=== PATIENT | female | born 1940 | race Hispanic/Latino ===

== ENCOUNTER 2017-02-17 10:24 | Emergency (ER) | payer MEDICARE, OTHER ==
[2017-02-17 10:24] VITALS: BMI 23.0
[2017-02-17 10:30] VITALS: RESP 20; O2SAT 100
--- NOTE | 2017-02-17 10:47 | C.PDOC ---
History Of Present Illness 77-year-old female, PMHx includes Anxiety, CAD, COPD, Depression, Diverticulitis , Emphysema, Hypertension, Hypercholesterolemia, and Hypothyroidism, presents to the emergency department with complaints of multiple episodes of hematuria that started two days ago. Patient denies nausea/vomiting, abdominal pain, dysuria/frequency/urgency, or any other associated symptoms. No other complaints at this time. Time Seen by Provider: 02/17/17 10:38 Chief Complaint (Nursing): Female Genitourinary History Per: Patient History/Exam Limitations: no limitations Onset/Duration Of Symptoms: Days Current Symptoms Are (Timing): Still Present Past Medical History Reviewed: Historical Data, Nursing Documentation, Vital Signs Vital Signs: Last Vital Signs Temp 98.3 F 02/17/17 14:18 Pulse 75 02/17/17 14:18 Resp 20 02/17/17 14:18 BP 114/71 02/17/17 14:18 Pulse Ox 100 02/17/17 14:18 - Medical History PMH: Anxiety, CAD, COPD, Depression, Diverticulitis, Emphysema, HTN, Hypercholesterolemia, Hypothyroidism Denies: Chronic Kidney Disease Surgical History: Appendectomy, Cholecystectomy, Coronary Stent (X4 7 YEARS AGO) - [facility] Procedures RESECTION OF BILATERAL FALLOPIAN TUBES, OPEN APPROACH (01/09/17) RESECTION OF BILATERAL OVARIES, OPEN APPROACH (01/09/17) RESECTION OF CERVIX, OPEN APPROACH (01/09/17) RESECTION OF UTERUS, OPEN APPROACH (01/09/17) Family History: States: Unknown Family Hx - Social History Hx Tobacco Use: No Hx Alcohol Use: Yes (former) Hx Substance Use: No - Immunization History Hx Tetanus Toxoid Vaccination: No Hx Influenza Vaccination: No Hx Pneumococcal Vaccination: No Review Of Systems Except As Marked, All Systems Reviewed And Found Negative. Constitutional: Negative for: Fever, Chills Respiratory: Negative for: Shortness of Breath Gastrointestinal: Negative for: Nausea, Vomiting Genitourinary: Positive for: Hematuria. Negative for: Dysuria, Frequency, Vaginal Discharge, Vaginal Bleeding, Pelvic Pain Musculoskeletal: Negative for: Back Pain Skin: Negative for: Rash Neurological: Negative for: Weakness, Numbness Physical Exam - Physical Exam Appears: Non-toxic, No Acute Distress Skin: Warm, Dry, No Rash, Other (healing incision scar to lower abdomen. No erythema. No discharge. ) Head: Atraumatic, Normacephalic Eye(s): bilateral: Normal Inspection, PERRL Nose: Normal Oral Mucosa: Moist Lips: Normal Appearing Neck: Normal ROM Cardiovascular: Rhythm Regular Respiratory: Normal Breath Sounds, No Accessory Muscle Use Gastrointestinal/Abdominal: Soft, No Tenderness Extremity: Normal ROM Neurological/Psych: Oriented x3, Normal Speech ED Course And Treatment - Laboratory Results Result Diagrams: 02/17/17 11:10 02/17/17 11:10 O2 Sat by Pulse Oximetry: 100 Disposition Counseled Patient/Family Regarding: Studies Performed, Diagnosis, Need For Followup, Rx Given - Disposition Disposition: HOME/ ROUTINE Disposition Time: 15:19 Condition: GUARDED Additional Instructions: Follow up with your doctor and with Urology. Take antibiotics as indicated. Return to the Emergency Department with any further concerns. Prescriptions: Nitrofurantoin Macrocrystals [Macrobid] 1 cap PO BID #14 cap Instructions: Acute Hematuria (ED), Urinary Tract Infection in Women (ED) Forms: General Discharge Instructions - POA Present On Arrival: None - Clinical Impression Clinical Impression: Hematuria, UTI (urinary tract infection) - Scribe Statement The provider has reviewed the documentation as recorded by the Scribe Ros Tapia All medical record entries made by the Scribe were at my direction and personally dictated by me. I have reviewed the chart and agree that the record accurately reflects my personal performance of the history, physical exam, medical decision making, and the department course for this patient. I have also personally directed, reviewed, and agree with the discharge instructions and disposition.
[2017-02-17 11:16] LABS: BASO % 0.5 % (0.0-2.0); EOS % 0.3 % (0.0-4.0); HEMATOCRIT 34.2 % (34.0-47.0); LYMPH # 0.7 K/uL (1.0-4.3); MEAN CELL VOLUME 93.6 fL (81.0-99.0); MEAN CORPUSCULAR HEMOGLOBIN 30.9 pg (27.0-31.0); MEAN PLATELET VOLUME 7.9 fL (7.2-11.7); MONO # 0.3 K/uL (0.0-0.8); MONO % 4.3 % (0.0-10.0); RED CELL DISTRIBUTION WIDTH 13.4 % (11.5-14.5); WHITE BLOOD COUNT 6.7 K/uL (4.8-10.8)
[2017-02-17 11:23] LABS: CHLORIDE 98 mmol/L (98-107); SODIUM 138 mmol/L (132-148)
[2017-02-17 11:24] LABS: POTASSIUM 4.1 mmol/L (3.6-5.2)
[2017-02-17 11:26] LABS: ALB/GLOB RATIO 1.1 (1.0-2.1); ALKALINE PHOSPHATASE 159 U/L (38-126); ALT/SGPT 33 U/L (9-52); AST/SGOT 30 U/L (14-36); BILIRUBIN,TOTAL 0.6 mg/dL (0.2-1.3); BLOOD UREA NITROGEN 15 mg/dL (7-17); CARBON DIOXIDE 26 mmol/L (22-30); GFR AFRICAN-AMERICAN > 60; GLUCOSE,RANDOM 123 mg/dL (65-105); TOTAL PROTEIN 7.1 g/dL (6.3-8.3)
[2017-02-17 11:27] LABS: CALCIUM 8.9 mg/dl (8.6-10.4)
[2017-02-17 12:24] LABS: RBC URINE 41 /hpf (0-3); URINE BACTERIA OCC (<OCC); URINE BILIRUBIN NEGATIVE (NEGATIVE); URINE BLOOD 3+ (NEGATIVE); URINE GLUCOSE (UA) NORMAL (Normal); URINE KETONE NEGATIVE (NEGATIVE); URINE LEUKOCYTE ESTERASE 2+ Leu/uL (Negative); URINE PROTEIN 2+ mg/dL (NEGATIVE); URINE UROBILINOGEN NORMAL mg/dL (0.2-1.0); WBC URINE 10 /hpf (0-5)
[2017-02-17 12:25] LABS: URINE COLOR LIGHT RED (YELLOW)
[2017-02-17] MEDS ORDERED: cefTRIAXone IV 1 gm in Dextros 50 ML IVPB ONE ×2 (13:13→14:51)
[2017-02-17 14:19] VITALS: BP 114/71; PULSE 75; TEMP 98.3
== END 2017-02-17 15:44 | disposition home or self-care (01) ==
LOC: C.ER 10:24
DX: N39.0 Urinary tract infection, site not specified (principal); B95.1 Streptococcus, group B, as the cause of diseases classified elsewhere; R31.9 Hematuria, unspecified
CPT/HCPCS: 80053; 81001; 85025; 87086; 87181; 96365; 99285; J0696

== ENCOUNTER 2017-07-26 10:23 | Inpatient (IN) | payer MEDICARE, OTHER ==
[2017-07-26 10:23] VITALS: BMI 23.0
--- NOTE | 2017-07-26 11:25 | C.PDOC ---
Time Seen by Provider: 07/26/17 10:54 Chief Complaint (Nursing): GI Problem Past Medical History Vital Signs: Last Vital Signs Temp 98.1 F 07/26/17 10:43 Pulse 108 H 07/26/17 10:43 Resp 18 07/26/17 10:43 BP 154/90 H 07/26/17 10:43 Pulse Ox 99 07/26/17 10:43 - Medical History PMH: Anxiety, CAD, COPD, Depression, Diverticulitis, Emphysema, HTN, Hypercholesterolemia, Hypothyroidism Denies: Chronic Kidney Disease Surgical History: Appendectomy, Cholecystectomy, Coronary Stent (X4 7 YEARS AGO) - [facility] Procedures RESECTION OF BILATERAL FALLOPIAN TUBES, OPEN APPROACH (01/09/17) RESECTION OF BILATERAL OVARIES, OPEN APPROACH (01/09/17) RESECTION OF CERVIX, OPEN APPROACH (01/09/17) RESECTION OF UTERUS, OPEN APPROACH (01/09/17) Family History: States: Unknown Family Hx - Social History Hx Tobacco Use: No Hx Alcohol Use: No (former) Hx Substance Use: No - Immunization History Hx Tetanus Toxoid Vaccination: No Hx Influenza Vaccination: No Hx Pneumococcal Vaccination: No ED Course And Treatment O2 Sat by Pulse Oximetry: 99 Disposition - Disposition Forms: [employer] (Cypriot)
[2017-07-26 11:28] LABS: BASO % 0.3 % (0.0-2.0); EOS # 0.1 K/uL (0.0-0.7); EOS % 0.7 % (0.0-4.0); HEMATOCRIT 35.9 % (34.0-47.0); LYMPH # 0.8 K/uL (1.0-4.3); LYMPH % 9.1 % (20.0-40.0); MEAN CORPUSCULAR HEMOGLOBIN 30.9 pg (27.0-31.0); MEAN CORPUSCULAR HGB CONC 33.6 g/dL (33.0-37.0); MEAN PLATELET VOLUME 8.7 fL (7.2-11.7); MONO # 0.5 K/uL (0.0-0.8); PLATELET COUNT 243 K/uL (130-400); RED CELL DISTRIBUTION WIDTH 15.2 % (11.5-14.5)
--- NOTE | 2017-07-26 11:33 | C.PDOC ---
History Of Present Illness 77-YEAR-OLD FEMALE, REFERRED BY PMD FOR ADMISSION. +WT LOSS X 1 MONTH APPROX 20 LBS. +NEW ONSET INTERMIT BRBPR X 2 WEEKS. LAST EPISODE SEV DAYS AGO. NO ASSOC ABD PAIN, RECTAL PAIN. INTERMIT NAUSEA. CURRENTLY CO GEN WEAKNESS, MALAISE. EXAM MILD DIST NONTOXIC HEENT NO PALLOR ABD NEG REMAINDER NEG Time Seen by Provider: 07/26/17 10:54 Chief Complaint (Nursing): GI Problem History Per: Patient History/Exam Limitations: no limitations Onset/Duration Of Symptoms: Days Severity: Moderate Past Medical History Reviewed: Historical Data, Nursing Documentation, Vital Signs Vital Signs: Last Vital Signs Temp 98.1 F 07/26/17 10:43 Pulse 108 H 07/26/17 10:43 Resp 18 07/26/17 10:43 BP 154/90 H 07/26/17 10:43 Pulse Ox 99 07/26/17 12:26 - Medical History PMH: Anxiety, CAD, COPD, Depression, Diverticulitis, Emphysema, HTN, Hypercholesterolemia, Hypothyroidism Denies: Chronic Kidney Disease Surgical History: Appendectomy, Cholecystectomy, Coronary Stent (X4 7 YEARS AGO) - [facility] Procedures RESECTION OF BILATERAL FALLOPIAN TUBES, OPEN APPROACH (01/09/17) RESECTION OF BILATERAL OVARIES, OPEN APPROACH (01/09/17) RESECTION OF CERVIX, OPEN APPROACH (01/09/17) RESECTION OF UTERUS, OPEN APPROACH (01/09/17) Family History: States: No Known Family Hx - Social History Hx Tobacco Use: No Hx Alcohol Use: No (former) Hx Substance Use: No - Immunization History Hx Tetanus Toxoid Vaccination: No Hx Influenza Vaccination: No Hx Pneumococcal Vaccination: No Review Of Systems Except As Marked, All Systems Reviewed And Found Negative. Constitutional: Negative for: Fever Cardiovascular: Negative for: Chest Pain Gastrointestinal: Positive for: Nausea, Hematochezia Musculoskeletal: Negative for: Back Pain Neurological: Positive for: Weakness Physical Exam - Physical Exam Appears: Non-toxic, No Acute Distress Skin: Warm, Dry, No Rash Head: Atraumatic, Normacephalic Eye(s): bilateral: Normal Inspection Nose: Normal Oral Mucosa: Moist Lips: Normal Appearing Neck: Normal ROM Cardiovascular: Rhythm Regular, No Murmur Respiratory: Normal Breath Sounds, No Accessory Muscle Use Gastrointestinal/Abdominal: Soft, No Tenderness Extremity: Normal ROM ED Course And Treatment - Laboratory Results Result Diagrams: 07/26/17 11:20 07/26/17 11:20 O2 Sat by Pulse Oximetry: 99 Pulse Ox Interpretation: Normal - Radiology CXR: Interpreted by Me CXR Interpretation: Yes: No Acute Disease Progress - Re-Evaluation Re-evaluation Note: 07/26/17 12:26 EXAM [facility] PER REFERRAL RX, PT TO BE ADMITTED TO DR MORALES - Data Reviewed Data Reviewed: Lab, Diagnostic imaging, EKG, Old records Disposition Counseled Patient/Family Regarding: Studies Performed, Diagnosis - Disposition Disposition: HOSPITALIZED Disposition Time: 12:20 Condition: STABLE Forms: [employer] (Andorran) - POA Present On Arrival: None - Clinical Impression Clinical Impression: GI bleed, Malaise, Weight loss - Scribe Statement The provider has reviewed the documentation as recorded by the Scribe (Ros Tapia) All medical record entries made by the Scribe were at my direction and personally dictated by me. I have reviewed the chart and agree that the record accurately reflects my personal performance of the history, physical exam, medical decision making, and the department course for this patient. I have also personally directed, reviewed, and agree with the discharge instructions and disposition. Decision To Admit - Pt Status Changed To: Hospital Disposition Of: Inpatient - Admit Certification Admit to Inpatient:: After my assessment, the patient will require hospitalization for at least two midnights. This is because of the severity of symptoms shown, intensity of services needed, and/or the medical risk in this patient being treated as an outpatient. - InPatient: Physician Admission Certification: I certify that this patient requires 2 or more midnights of care for the following reason:: SEE NOTE - . Bed Request Type: Telemetry Admitting Physician: Donell Morales Patient Diagnosis: GI bleed, Malaise, Weight loss
[2017-07-26 11:42] LABS: ALKALINE PHOSPHATASE 203 U/L (38-126); ALT/SGPT 67 U/L (9-52); AST/SGOT 71 U/L (14-36); BILIRUBIN,TOTAL 0.7 mg/dL (0.2-1.3); BLOOD UREA NITROGEN 15 mg/dL (7-17); CALCIUM 9.3 mg/dl (8.6-10.4); CARBON DIOXIDE 26 mmol/L (22-30); CHLORIDE 102 mmol/L (98-107); GFR AFRICAN-AMERICAN > 60; GLUCOSE,RANDOM 104 mg/dL (65-105); POTASSIUM 4.5 mmol/L (3.6-5.2); SODIUM 141 mmol/L (132-148); TOTAL PROTEIN 7.4 g/dL (6.3-8.3)
[2017-07-26 11:45] LABS: EOSINOPHIL 1 % (0-4); NEUTROPHIL 88 % (50-75); TOTAL CELLS COUNTED 100
[2017-07-26 11:47] LABS: LARGE PLATELETS PRESENT
--- NOTE | 2017-07-26 15:18 | RAD ---
PROCEDURE: CHEST RADIOGRAPH, 1 VIEW HISTORY: FAILURE TO THRIVE COMPARISON: 12/06/2016 FINDINGS: LUNGS: Clear. PLEURA: No pneumothorax or pleural fluid seen. CARDIOVASCULAR: No radiographic findings to suggest acute or significant cardiovascular disease. OSSEOUS STRUCTURES: No significant abnormalities. VISUALIZED UPPER ABDOMEN: Normal. OTHER FINDINGS: None. IMPRESSION: No active disease. No acute/significant interval changes. Concordant results with the preliminary interpretation rendered by the emergency department physician procedure.
--- NOTE | 2017-07-26 23:23 | CP.PCM.HP ---
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 also feels anxious about whole process, she is independent of ADL\IDL and active otherwise. Present on Admission - Present on Admission Any Indicators Present on Admission: No Review of Systems - Constitutional Constitutional: Fatigue, Lethargy, Weight Loss. absent: Chills, Fever, Headache , Night Sweats - EENT Nose/Mouth/Throat: absent: Sore Throat, Facial Pain - Cardiovascular Cardiovascular: absent: Chest Pain, Dyspnea, Edema, Orthopnea, Rapid Heart Rate - Respiratory Respiratory: absent: Wheezing, Chest Congestion, Excessive Mucous Production - Gastrointestinal Gastrointestinal: Nausea. absent: Belching, Bloating, Constipation, Diarrhea, Dyspepsia - Genitourinary Genitourinary: Hematuria. absent: Flank Pain, Urinary Frequency - Reproductive: Female Reproductive:Female: S/P Hysterectomy - Menstruation Menstruation: Post Menopausal - Musculoskeletal Musculoskeletal: Arthralgias, Limited Range of Motion. absent: Back Pain - Hematologic/Lymphatic Hematologic: absent: Easy Bleeding, Lymphadenopathy Past Patient History - Past Medical History & Family History Past Medical History?: Yes - Past Social History Smoking Status: Former Smoker - CARDIAC Hx Hypercholesterolemia: Yes Hx Hypertension: Yes - PULMONARY Hx Chronic Obstructive Pulmonary Disease (COPD): Yes Hx Emphysema: Yes - NEUROLOGICAL Hx Neurological Disorder: No - HEENT Hx HEENT Problems: Yes Hx Cataracts: Yes (BILAT IOL) - RENAL Hx Chronic Kidney Disease: No - ENDOCRINE/METABOLIC Hx Hypothyroidism: Yes - HEMATOLOGICAL/ONCOLOGICAL Hx Blood Disorders: No - INTEGUMENTARY Hx Dermatological Problems: No - MUSCULOSKELETAL/RHEUMATOLOGICAL Hx Musculoskeletal Disorders: Yes Hx Back Pain: Yes Hx Falls: No Hx Herniated Disk: Yes (LUMBAR) - GASTROINTESTINAL Hx Diverticulitis: Yes - GENITOURINARY/GYNECOLOGICAL Hx Genitourinary Disorders: Yes (FIBROID UTERUS) - PSYCHIATRIC Hx Anxiety: Yes Hx Depression: Yes Hx Substance Use: No - SURGICAL HISTORY Hx Appendectomy: Yes Hx Cholecystectomy: Yes Hx Coronary Stent: Yes (X4 7 YEARS AGO) - ANESTHESIA Hx Anesthesia: Yes Hx Anesthesia Reactions: No Hx Malignant Hyperthermia: No Meds Allergies/Adverse Reactions: Allergies Allergy/AdvReac Type Severity Reaction Status Date / Time influenza virus vaccine, Allergy Intermediate RASH Verified 01/07/17 11:07 specific cortisone Allergy RASH Verified 01/09/17 08:24 Iodinated Contrast- Oral and Allergy RASH Verified 07/26/17 22:42 IV Dye Physical Exam - Constitutional Appears: No Acute Distress - Head Exam Head Exam: ATRAUMATIC, NORMAL INSPECTION - Eye Exam Eye Exam: EOMI, Normal appearance, PERRL - ENT Exam ENT Exam: Normal Exam - Neck Exam Neck exam: Positive for: Normal Inspection. Negative for: Thyromegaly - Respiratory Exam Respiratory Exam: Clear to Auscultation Bilateral, NORMAL BREATHING PATTERN - Cardiovascular Exam Cardiovascular Exam: REGULAR RHYTHM, +S1, +S2, Systolic Murmur - GI/Abdominal Exam GI & Abdominal Exam: Normal Bowel Sounds, Soft. absent: Distended, Organomegaly , Tenderness - Rectal Exam Rectal Exam: NORMAL INSPECTION Additional comments: guiac negative - Extremities Exam Extremities exam: Positive for: full ROM, pedal pulses present - Back Exam Back exam: NORMAL INSPECTION. absent: paraspinal tenderness - Neurological Exam Neurological exam: Alert, CN II-XII Intact, Normal Gait, Oriented x3 - Psychiatric Exam Psychiatric exam: Anxious - Skin Skin Exam: Intact, Normal Color Results - Vital Signs Recent Vital Signs: Last Vital Signs Temp 97.4 F L 07/26/17 17:26 Pulse 78 07/26/17 17:26 Resp 20 07/26/17 17:26 BP 130/75 07/26/17 17:26 Pulse Ox 100 07/26/17 17:26 - Labs Result Diagrams: 07/27/17 07:07 07/27/17 07:07 Labs: Laboratory Results - last 24 hr 07/26/17 07/26/17 12:31 16:43 CA 19-9 Antigen 2.5 Stool Occult Blood Negative - Imaging and Cardiology Chest x-ray Status: Report reviewed by me Assessment & Plan (1) Weight loss Status: Acute Comment: considerable weight this yr. cause unclear. peristent elevation CA125 , s\p pathology is benign. for colonoscopy as she can not get it OP. CT abdomen\chest\pelvis. also allergies to contast ,premedicate (2) Malaise Assessment and Plan: nutrition evalv ensure Status: Chronic (3) Essential (primary) hypertension Status: Chronic Priority: Medium (4) Mixed hyperlipidemia Status: Chronic Priority: Medium Comment: resume meds (5) Hypothyroid Status: Chronic Priority: Medium Comment: resume meds (6) GI bleed Assessment and Plan: GI consult stool FOB-3 guaic negative Status: Chronic (7) CAD (coronary artery disease) Status: Acute Comment: STABLE Decision To Admit - Pt Status Changed To: Hospital Disposition Of: Inpatient - Admit Certification Admit to Inpatient:: After my assessment, the patient will require hospitalization for at least two midnights. This is because of the severity of symptoms shown, intensity of services needed, and/or the medical risk in this patient being treated as an outpatient. - InPatient: Physician Admission Certification:: ABOVE - . Bed Request Type: Regular Admitting Physician: Donell Morales
[2017-07-27] MEDS: Levothyroxine 25 MCG TAB PO SCH (06:13)
[2017-07-27 07:28] LABS: HEMATOCRIT 35.1 % (34.0-47.0); MEAN CELL VOLUME 92.2 fL (81.0-99.0); MEAN CORPUSCULAR HEMOGLOBIN 30.9 pg (27.0-31.0); MEAN CORPUSCULAR HGB CONC 33.5 g/dL (33.0-37.0); MEAN PLATELET VOLUME 8.7 fL (7.2-11.7); RED CELL DISTRIBUTION WIDTH 14.9 % (11.5-14.5); WHITE BLOOD COUNT 6.7 K/uL (4.8-10.8)
[2017-07-27 07:44] LABS: CHLORIDE 105 mmol/L (98-107); SODIUM 141 mmol/L (132-148)
[2017-07-27 07:45] LABS: POTASSIUM 4.8 mmol/L (3.6-5.2)
[2017-07-27 07:47] LABS: ALKALINE PHOSPHATASE 189 U/L (38-126); ALT/SGPT 62 U/L (9-52); AST/SGOT 53 U/L (14-36); BILIRUBIN,TOTAL 0.8 mg/dL (0.2-1.3); BLOOD UREA NITROGEN 14 mg/dL (7-17); CARBON DIOXIDE 29 mmol/L (22-30); GFR AFRICAN-AMERICAN > 60; GLUCOSE,RANDOM 92 mg/dL (65-105); TOTAL PROTEIN 7.3 g/dL (6.3-8.3)
[2017-07-27 07:48] LABS: CALCIUM 9.2 mg/dl (8.6-10.4)
[2017-07-27 07:56] LABS: CARCINOEMBRYONIC ANTIGEN 1.2 ng/mL (0-3.0)
--- NOTE | 2017-07-27 09:12 | CP.PCM.CON ---
<Cecilia Mueller - Last Filed: 07/27/17 11:40> History of Present Illness - History of Present Illness History of Present Illness: GI Consult PGY4 Consult Note This is a 77yF with a pmhx of HLD, Hypothyroidism, Emphysema, CAD s/p 4 stents 7yrs ago, Ovarian serous cystadenoma s/p total abdominal hysterectomy 12/2016, Diverticulosis pw co generalized weakness, weight loss and rectal bleeding. Pt reports she has been feeling weak for the past one year and has had unintentional weightloss of 23pounds over the course of one year. Pt reports decreased appetite and intermittent nausea but denies vomiting, abdominal pain. Pt reports her symptoms have progressively worsened after her hysterectomy in December. Pt reports small amounts of red blood on toilet paper with BM but denies melena, hematochezia, hemetemesis. Pt reports regular soft BM every other day, no history of NSAID use like Aleve, Advil, pt does take baby aspirin daily. No prior hx of GI bleed. Pt reports having a colonoscopy many years ago but less than 10yrs ago that was negative for polyps, did have diverticulosis. EGD at that time was negative for PUD,gastritis, or GERD. ROS: A 12pt ROS was obtained and was negative except as above PmHx: As stated in HPI PsHx: As stated in HPI SHx: Prior history of alcohol use but denies current ETOH or tobacco FHx: No hx of colon cancer Past Patient History - Past Medical History & Family History Past Medical History?: Yes - Past Social History Smoking Status: Former Smoker - CARDIAC Hx Hypercholesterolemia: Yes Hx Hypertension: Yes - PULMONARY Hx Chronic Obstructive Pulmonary Disease (COPD): Yes Hx Emphysema: Yes - NEUROLOGICAL Hx Neurological Disorder: No - HEENT Hx HEENT Problems: Yes Hx Cataracts: Yes (BILAT IOL) - RENAL Hx Chronic Kidney Disease: No - ENDOCRINE/METABOLIC Hx Hypothyroidism: Yes - HEMATOLOGICAL/ONCOLOGICAL Hx Blood Disorders: No - INTEGUMENTARY Hx Dermatological Problems: No - MUSCULOSKELETAL/RHEUMATOLOGICAL Hx Musculoskeletal Disorders: Yes Hx Back Pain: Yes Hx Falls: No Hx Herniated Disk: Yes (LUMBAR) - GASTROINTESTINAL Hx Diverticulitis: Yes - GENITOURINARY/GYNECOLOGICAL Hx Genitourinary Disorders: Yes (FIBROID UTERUS) - PSYCHIATRIC Hx Anxiety: Yes Hx Depression: Yes Hx Substance Use: No - SURGICAL HISTORY Hx Appendectomy: Yes Hx Cholecystectomy: Yes Hx Coronary Stent: Yes (X4 7 YEARS AGO) - ANESTHESIA Hx Anesthesia: Yes Hx Anesthesia Reactions: No Hx Malignant Hyperthermia: No Meds Allergies/Adverse Reactions: Allergies Allergy/AdvReac Type Severity Reaction Status Date / Time influenza virus vaccine, Allergy Intermediate RASH Verified 01/07/17 11:07 specific cortisone Allergy RASH Verified 01/09/17 08:24 Iodinated Contrast- Oral and Allergy RASH Verified 07/26/17 22:42 IV Dye - Medications Medications: Current Medications Aspirin (Ecotrin) 81 mg PO DAILY [facility] Enoxaparin Sodium (Lovenox) 40 mg SC DAILY [facility] Ergocalciferol (Drisdol 50,000 Intl Units Cap) 1 cap PO QWK [facility] Levothyroxine Sodium (Synthroid) 25 mcg PO DAILY@0630 [facility] Last Admin: 07/27/17 06:13 Dose: 25 mcg Losartan Potassium (Cozaar) 12.5 mg PO DAILY [facility] Rosuvastatin Calcium (Crestor) 5 mg PO HS [facility] Last Admin: 07/26/17 21:21 Dose: 5 mg Physical Exam - Constitutional Appears: Non-toxic, No Acute Distress - Head Exam Head Exam: ATRAUMATIC, NORMAL INSPECTION, NORMOCEPHALIC - Eye Exam Eye Exam: EOMI, Normal appearance, PERRL Pupil Exam: PERRL - ENT Exam ENT Exam: Mucous Membranes Moist - Neck Exam Neck exam: Positive for: Normal Inspection - Respiratory Exam Respiratory Exam: Clear to Auscultation Bilateral, NORMAL BREATHING PATTERN - Cardiovascular Exam Cardiovascular Exam: RRR, +S1, +S2 - GI/Abdominal Exam GI & Abdominal Exam: Normal Bowel Sounds, Soft. absent: Distended, Firm, Guarding, Organomegaly, Tenderness - Rectal Exam Rectal Exam: Hemorrhoids Additional comments: Brown stool, no melena or hematochezia - Extremities Exam Extremities exam: Positive for: normal inspection. Negative for: pedal edema - Back Exam Back exam: NORMAL INSPECTION - Neurological Exam Neurological exam: Alert, Oriented x3 - Psychiatric Exam Psychiatric exam: Normal Affect, Normal Mood - Skin Skin Exam: Dry, Intact, Normal Color, Warm Results - Vital Signs Recent Vital Signs: Last Vital Signs Temp 97.6 F 07/27/17 07:15 Pulse 64 07/27/17 07:15 Resp 18 07/27/17 07:15 BP 125/66 07/27/17 07:15 Pulse Ox 99 07/27/17 07:15 - Labs Result Diagrams: 07/27/17 07:07 07/27/17 07:07 Labs: Laboratory Results - last 24 hr 07/26/17 07/26/17 07/27/17 12:31 16:43 07:07 WBC RBC Hgb Hct MCV MCH MCHC RDW Plt Count MPV Sodium 141 Potassium 4.8 Chloride 105 Carbon Dioxide 29 Anion Gap 12 BUN 14 Creatinine 0.8 Est GFR ( Amer) > 60 Est GFR (Non-Af Amer) > 60 Random Glucose 92 Calcium 9.2 Total Bilirubin 0.8 AST 53 H D ALT 62 H Alkaline Phosphatase 189 H Total Protein 7.3 Albumin 3.7 Globulin 3.7 Albumin/Globulin Ratio 1.0 Carcinoembryonic Ag 1.2 CA 19-9 Antigen 2.5 CA 125 Antigen 39.1 H TSH 3rd Generation 3.40 Stool Occult Blood Negative 07/27/17 07:07 WBC 6.7 RBC 3.80 Hgb 11.7 Hct 35.1 MCV 92.2 MCH 30.9 MCHC 33.5 RDW 14.9 H Plt Count 260 MPV 8.7 Sodium Potassium Chloride Carbon Dioxide Anion Gap BUN Creatinine Est GFR ( Amer) Est GFR (Non-Af Amer) Random Glucose Calcium Total Bilirubin AST ALT Alkaline Phosphatase Total Protein Albumin Globulin Albumin/Globulin Ratio Carcinoembryonic Ag CA 19-9 Antigen CA 125 Antigen TSH 3rd Generation Stool Occult Blood Assessment & Plan - Assessment and Plan (Free Text) Assessment: This is a 77yf pw co weakness, weight loss and rectal bleeding. 1. Anemia 2. Unintentional weight loss, nausea 3. Lower GI Bleed 4. Hypothyroidism 5. Serous Cystadenoma s/p hysterectomy Plan: -Continue supportive care, no active GI bleeding at this time, Hgb stable -Continue to monitor Hgb, order iron profile, Hgb seems to be at pt's baseline, possible hemorrhoidal bleed -No plan for emergent endoscopic evaluation a this time -Pt will benefit from EGD/Colonoscopy if pt remains in the hospital but will need cardiac/pulmonary clearance prior to procedure including 2decho -Recommend CT Chest in addition to CTA/P with IV/po contrast to r/o malignancy with recent hysterectomy -Check TSH level -Will continue to follow pt closely <Barron Serra MD - Last Filed: 07/27/17 13:04> Meds - Medications Medications: Current Medications Aspirin (Ecotrin) 81 mg PO DAILY [facility] Last Admin: 07/27/17 09:59 Dose: 81 mg Diphenhydramine HCl (Benadryl) 50 mg IVP ONCE ONE Stop: 07/28/17 08:01 Enoxaparin Sodium (Lovenox) 40 mg SC DAILY [facility] Last Admin: 07/27/17 10:00 Dose: 40 mg Ergocalciferol (Drisdol 50,000 Intl Units Cap) 1 cap PO QWK [facility] Last Admin: 07/27/17 09:59 Dose: 1 cap Levothyroxine Sodium (Synthroid) 25 mcg PO DAILY@0630 [facility] Last Admin: 07/27/17 06:13 Dose: 25 mcg Losartan Potassium (Cozaar) 12.5 mg PO DAILY [facility] Last Admin: 07/27/17 10:04 Dose: 12.5 mg Pneumococcal Polyvalent Vaccine (Pneumovax 23 Vaccine) 0.5 ml IM .ONCE ONE Stop: 07/28/17 10:01 Prednisone (Prednisone Tab) 50 mg PO ONCE ONE Stop: 07/28/17 08:01 Rosuvastatin Calcium (Crestor) 5 mg PO HS [facility] Last Admin: 07/26/17 21:21 Dose: 5 mg Results - Vital Signs Recent Vital Signs: Last Vital Signs Temp 97.6 F 07/27/17 07:15 Pulse 64 07/27/17 07:15 Resp 18 07/27/17 07:15 BP 125/66 07/27/17 07:15 Pulse Ox 99 07/27/17 07:15 - Labs Result Diagrams: 07/27/17 07:07 07/27/17 07:07 Labs: Laboratory Results - last 24 hr 07/26/17 07/27/17 07/27/17 16:43 07:07 07:07 WBC 6.7 RBC 3.80 Hgb 11.7 Hct 35.1 MCV 92.2 MCH 30.9 MCHC 33.5 RDW 14.9 H Plt Count 260 MPV 8.7 Sodium 141 Potassium 4.8 Chloride 105 Carbon Dioxide 29 Anion Gap 12 BUN 14 Creatinine 0.8 Est GFR ( Amer) > 60 Est GFR (Non-Af Amer) > 60 Random Glucose 92 Calcium 9.2 Iron TIBC % Saturation Total Bilirubin 0.8 AST 53 H D ALT 62 H Alkaline Phosphatase 189 H Total Protein 7.3 Albumin 3.7 Globulin 3.7 Albumin/Globulin Ratio 1.0 Carcinoembryonic Ag 1.2 CA 19-9 Antigen 2.5 CA 125 Antigen 39.1 H TSH 3rd Generation 3.40 07/27/17 11:41 WBC RBC Hgb Hct MCV MCH MCHC RDW Plt Count MPV Sodium Potassium Chloride Carbon Dioxide Anion Gap BUN Creatinine Est GFR ( Amer) Est GFR (Non-Af Amer) Random Glucose Calcium Iron 55 TIBC 291 % Saturation 19 L Total Bilirubin AST ALT Alkaline Phosphatase Total Protein Albumin Globulin Albumin/Globulin Ratio Carcinoembryonic Ag CA 19-9 Antigen CA 125 Antigen TSH 3rd Generation Attending/Attestation - Attestation I have personally seen and examined this patient.: Yes I have fully participated in the care of the patient.: Yes I have reviewed all pertinent clinical information: Yes Notes (Text): 07/27/17 13:01 This is a 77 year old F presented with weakness, weight loss and rectal bleeding. Recent history of adnexal mass s/p ROMAN and salpingoophorectomy with serous cystadenoma on pathology. No history of recent EGD/ colonoscopy. last colonoscopy about 8 years ago which was normal as per patient. Denies erctal bleeding. Rectal brwon stool. Has new onset fatigue- needs cardiology work up with ECHO and TSH levels. Recommens CT chest, abdomen and pelvis with Iv contrast. Will benefit from EGD/ colonoscopy which can be done as outpatient once has finished cardiology work up
[2017-07-27] MEDS: Enoxaparin 40 mg Syringe SC SCH (10:00)
[2017-07-27] MEDS ORDERED: Ergocalciferol 50,000 Intl Units Cap PO SCH (10:00)
[2017-07-27 12:02] LABS: IRON 55 ug/dL (37-170)
--- NOTE | 2017-07-27 21:09 | CP.PCM.PN ---
Subjective - Date & Time of Evaluation Date of Evaluation: 07/27/17 Time of Evaluation: 15:00 - Subjective Subjective: notes she is allergic to cortisone,does not know what happens. labs noted. no more episodes of bleeding anxious about colonoscopy and CT scan. TSH-normal, elevated LFTS-mild with alk ca 125-39. Objective - Vital Signs/Intake and Output Vital Signs (last 24 hours): Temp Pulse Resp BP Pulse Ox 97.7 F 75 20 121/67 98 07/27/17 15:50 07/27/17 16:00 07/27/17 15:50 07/27/17 15:50 07/27/17 15:50 - Medications Medications: Current Medications Aspirin (Ecotrin) 81 mg PO DAILY [facility] Last Admin: 07/27/17 09:59 Dose: 81 mg Diphenhydramine HCl (Benadryl) 50 mg IVP ONCE ONE Stop: 07/28/17 08:01 Enoxaparin Sodium (Lovenox) 40 mg SC DAILY [facility] Last Admin: 07/27/17 10:00 Dose: 40 mg Ergocalciferol (Drisdol 50,000 Intl Units Cap) 1 cap PO QWK [facility] Last Admin: 07/27/17 09:59 Dose: 1 cap Levothyroxine Sodium (Synthroid) 25 mcg PO DAILY@0630 [facility] Last Admin: 07/27/17 06:13 Dose: 25 mcg Losartan Potassium (Cozaar) 12.5 mg PO DAILY [facility] Pneumococcal Polyvalent Vaccine (Pneumovax 23 Vaccine) 0.5 ml IM .ONCE ONE Stop: 07/28/17 10:01 Prednisone (Prednisone Tab) 50 mg PO Q6H [facility] Stop: 07/28/17 08:01 Last Admin: 07/27/17 20:57 Dose: 50 mg Rosuvastatin Calcium (Crestor) 5 mg PO HS [facility] Last Admin: 07/27/17 21:02 Dose: 5 mg - Labs Labs: 07/27/17 07:07 07/27/17 07:07 PT 11.0 SECONDS (9.7-12.2) 07/26/17 11:20 INR 1.0 07/26/17 11:20 APTT 30 SECONDS (21-34) 07/26/17 11:20 - Additional Findings Additional findings: - Constitutional Appears: No Acute Distress - Head Exam Head Exam: ATRAUMATIC, NORMAL INSPECTION - Eye Exam Eye Exam: EOMI, Normal appearance, PERRL - ENT Exam ENT Exam: Normal Exam - Neck Exam Neck exam: Positive for: Normal Inspection. Negative for: Thyromegaly - Respiratory Exam Respiratory Exam: Clear to Auscultation Bilateral, NORMAL BREATHING PATTERN - Cardiovascular Exam Cardiovascular Exam: REGULAR RHYTHM, +S1, +S2, Systolic Murmur - GI/Abdominal Exam GI & Abdominal Exam: Normal Bowel Sounds, Soft. absent: Distended, Organomegaly , Tenderness - Extremities Exam Extremities exam: Positive for: full ROM, pedal pulses present - Back Exam Back exam: NORMAL INSPECTION. absent: paraspinal tenderness - Neurological Exam Neurological exam: Alert, CN II-XII Intact, Normal Gait, Oriented x3 - Psychiatric Exam Psychiatric exam: Anxious - Skin Skin Exam: Intact, Normal Color Assessment and Plan (1) GI bleed Status: Chronic (2) Weight loss Status: Acute (3) CAD (coronary artery disease) Status: Chronic (4) Hypothyroid Status: Chronic - Assessment and Plan (Free Text) Plan: plan to get EGD\Colonoscopy due to weight loss, hx of rectal bleed ,not able to do as out patient mild hepatitis- likley drug induced ALK-Phosphatase levles get GGT,Phosphrous levels
[2017-07-28] MEDS: Levothyroxine 25 MCG TAB PO SCH (05:59)
[2017-07-28] MEDS ORDERED: DiphenhydrAMINE 50 mg/ml Inj IVP ONE (08:00)
[2017-07-28] MEDS ORDERED: Iodixanol 320 MG/ML 100 ML BOTTLE IV ONE (09:23)
[2017-07-28] MEDS ORDERED: Iohexol 240 (50 ml) PO ONE (09:30)
[2017-07-28] MEDS ORDERED: Pneumococcal 23-Valent Vaccine IM ONE (10:00)
[2017-07-28] MEDS: Enoxaparin 40 mg Syringe SC SCH (10:04)
[2017-07-28] MEDS: Losartan 12.5 MG TAB PO SCH (10:08)
[2017-07-28 10:19] LABS: BASO % 0.1 % (0.0-2.0); HEMATOCRIT 38.8 % (34.0-47.0); LYMPH # 0.6 K/uL (1.0-4.3); LYMPH % 6.4 % (20.0-40.0); MEAN CELL VOLUME 92.9 fL (81.0-99.0); MEAN CORPUSCULAR HGB CONC 33.4 g/dL (33.0-37.0); MEAN PLATELET VOLUME 8.5 fL (7.2-11.7); MONO # 0.1 K/uL (0.0-0.8); MONO % 0.7 % (0.0-10.0); PLATELET COUNT 285 K/uL (130-400); RED CELL DISTRIBUTION WIDTH 14.8 % (11.5-14.5); WHITE BLOOD COUNT 9.2 K/uL (4.8-10.8)
--- NOTE | 2017-07-28 10:36 | CP.PCM.PN ---
<Stanton Robles - Last Filed: 07/28/17 10:32> Subjective - Date & Time of Evaluation Date of Evaluation: 07/28/17 Time of Evaluation: 07:35 - Subjective Subjective: PGY5 GI Fellow Progress Note Patient seen and examined bedside this morning. The patient states she has had no issues overnight. She continues to have poor appetite. Denies any joleen abdominal pain, nausea, vomiting or change in bowel habits currently. 12 system ROS performed and negative except where stated. Objective - Vital Signs/Intake and Output Vital Signs (last 24 hours): Temp Pulse Resp BP Pulse Ox 97.7 F 82 20 112/67 95 07/28/17 07:00 07/28/17 08:05 07/28/17 07:00 07/28/17 07:00 07/28/17 07:00 Intake and Output: 07/28/17 07/28/17 06:59 18:59 Intake Total 480 Balance 480 - Medications Medications: Current Medications Aspirin (Ecotrin) 81 mg PO DAILY [facility] Last Admin: 07/28/17 10:04 Dose: 81 mg Bisacodyl (Dulcolax) 10 mg PO ONCE ONE Stop: 07/28/17 12:01 Enoxaparin Sodium (Lovenox) 40 mg SC DAILY [facility] Last Admin: 07/28/17 10:04 Dose: 40 mg Ergocalciferol (Drisdol 50,000 Intl Units Cap) 1 cap PO QWK [facility] Last Admin: 07/27/17 09:59 Dose: 1 cap Levothyroxine Sodium (Synthroid) 25 mcg PO DAILY@0630 [facility] Last Admin: 07/28/17 05:59 Dose: 25 mcg Losartan Potassium (Cozaar) 12.5 mg PO DAILY [facility] Last Admin: 07/28/17 10:08 Dose: 12.5 mg Polyethylene Glycol/Electrolytes (Golytely) 4,000 ml PO ONCE ONE Stop: 07/28/17 14:01 Rosuvastatin Calcium (Crestor) 5 mg PO HS [facility] Last Admin: 07/27/17 21:02 Dose: 5 mg - Labs Labs: 07/28/17 10:16 07/27/17 07:07 PT 11.0 SECONDS (9.7-12.2) 07/26/17 11:20 INR 1.0 07/26/17 11:20 APTT 30 SECONDS (21-34) 07/26/17 11:20 - Constitutional Appears: Non-toxic, No Acute Distress - Eye Exam Eye Exam: EOMI, PERRL - ENT Exam ENT Exam: Mucous Membranes Moist - Respiratory Exam Respiratory Exam: Clear to Ausculation Bilateral. absent: Rales, Rhonchi, Wheezes - Cardiovascular Exam Cardiovascular Exam: RRR, +S1, +S2 - GI/Abdominal Exam GI & Abdominal Exam: Soft, Normal Bowel Sounds. absent: Distended, Firm, Guarding, Rigid, Tenderness, Organomegaly - Extremities Exam Extremities Exam: Normal Inspection. absent: Pedal Edema - Neurological Exam Neurological Exam: Alert, Awake, Oriented x3 - Psychiatric Exam Psychiatric exam: Normal Affect, Normal Mood - Skin Skin Exam: Dry, Warm Assessment and Plan - Assessment and Plan (Free Text) Assessment: Patient is a 77yo female with PMHx significant for CAD s/p PCI with 4 coronary artery stents, COPD, ovarian serous cystadenoma s/p ROMAN with BSO, hypothyroidism and hyperlipidemia who presented to the ED with generalized malaise, weight loss and intermittent rectal bleeding. -Unintentional weight loss -Generalized malaise, poor appetite -Anemia -Hypothyroidism Plan: -Plan for EGD/colonoscopy tomorrow -Dulcolax at 12pm -Golytely to begin at 2pm -liquid diet today, npo past mn -Cleared for procedure from primary care physician, Dr Morales -Awaiting CT C/A/P to R/O any underlying malignancy -CA 125 elevation noted <Francisco Rogers Y - Last Filed: 07/28/17 14:41> Objective - Vital Signs/Intake and Output Vital Signs (last 24 hours): Temp Pulse Resp BP Pulse Ox 97.7 F 82 20 112/67 95 07/28/17 07:00 07/28/17 08:05 07/28/17 07:00 07/28/17 07:00 07/28/17 07:00 Intake and Output: 07/28/17 07/28/17 06:59 18:59 Intake Total 480 Balance 480 - Medications Medications: Current Medications Aspirin (Ecotrin) 81 mg PO DAILY [facility] Last Admin: 07/28/17 10:04 Dose: 81 mg Enoxaparin Sodium (Lovenox) 40 mg SC DAILY [facility] Last Admin: 09/12/17 10:04 Dose: 40 mg Ergocalciferol (Drisdol 50,000 Intl Units Cap) 1 cap PO QWK [facility] Last Admin: 07/27/17 09:59 Dose: 1 cap Levothyroxine Sodium (Synthroid) 25 mcg PO DAILY@0630 [facility] Last Admin: 07/28/17 05:59 Dose: 25 mcg Losartan Potassium (Cozaar) 12.5 mg PO DAILY [facility] Last Admin: 07/28/17 10:08 Dose: 12.5 mg Rosuvastatin Calcium (Crestor) 5 mg PO HS [facility] Last Admin: 07/27/17 21:02 Dose: 5 mg - Labs Labs: 07/28/17 10:16 07/28/17 10:16 PT 11.0 SECONDS (9.7-12.2) 07/26/17 11:20 INR 1.0 07/26/17 11:20 APTT 30 SECONDS (21-34) 07/26/17 11:20 Attending/Attestation - Attestation I have personally seen and examined this patient.: Yes I have fully participated in the care of the patient.: Yes I have reviewed all pertinent clinical information, including history, physical exam and plan: Yes Notes (Text): 07/28/17 14:39 I have seen and examined patient with GI fellow. No acute events overnight, she is seen resting in bed comfortably. She denies abdominal pain, nausea, vomiting, diarrhea, fever/chills. Tolerating PO diet without difficulty. Review of vitals from today are normal. CAD s/p PCI COPD Ovarian cystadenoma s/p ROMAN Unintentional weight loss - Liquid diet as tolerated - H/H stable, continue to monitor - Patient scheduled for CT imaging of chest/abdomen/pelvis today for malignancy workup, follow up results - Plan for EGD/colonoscopy tomorrow for further evaluation given unexplained weight loss, elevated tumor marker. NPO after midnight.
[2017-07-28 10:46] LABS: ALB/GLOB RATIO 1.1 (1.0-2.1); ALKALINE PHOSPHATASE 194 U/L (38-126); ALT/SGPT 68 U/L (9-52); AST/SGOT 48 U/L (14-36); BILIRUBIN,TOTAL 0.4 mg/dL (0.2-1.3); BLOOD UREA NITROGEN 15 mg/dL (7-17); CALCIUM 9.9 mg/dl (8.6-10.4); CARBON DIOXIDE 25 mmol/L (22-30); CHLORIDE 101 mmol/L (98-107); GFR AFRICAN-AMERICAN > 60; GLUCOSE,RANDOM 178 mg/dL (65-105); POTASSIUM 4.1 mmol/L (3.6-5.2); SODIUM 142 mmol/L (132-148); TOTAL PROTEIN 7.7 g/dL (6.3-8.3)
[2017-07-28] MEDS ORDERED: Bisacodyl 5mg EC Tab PO ONE (12:00)
[2017-07-28 12:31] LABS: NEUTROPHIL 94 % (50-75); TOTAL CELLS COUNTED 100
--- NOTE | 2017-07-28 13:17 | CT ---
PROCEDURE: CT Chest, Abdomen and Pelvis with intravenous contrast HISTORY: weight loss COMPARISON: 09/26/2016 TECHNIQUE: IV dose administered: 100 cc of Visipaque Radiation dose: Total exam DLP = 356 mGy-cm. This CT exam was performed using one or more of the following dose reduction techniques: Automated exposure control, adjustment of the mA and/or kV according to patient size, and/or use of iterative reconstruction technique. FINDINGS: CT CHEST WITH CONTRAST: LUNGS: Clear. No nodule, mass or consolidation. MEDIASTINUM: Unremarkable. Normal caliber aorta and pulmonary arterial trunk. No aortic dissection. Normal size heart. Heavily calcified coronary arteries LYMPH NODES: Unremarkable. PLEURA: Pleural-based nodular scar and granulomas are seen right greater than left. BONES: Unremarkable. OTHER FINDINGS: None. CT ABDOMEN AND PELVIS: LIVER: Unremarkable. No gross lesion or ductal dilatation. GALLBLADDER AND BILE DUCTS: Not visualize. There are no clips in the gallbladder fossa. PANCREAS: Unremarkable. No gross lesion or ductal dilatation. SPLEEN: Unremarkable. ADRENALS: Unremarkable. No mass. KIDNEYS AND URETERS: Unremarkable. No hydronephrosis. No solid mass. VASCULATURE: Unremarkable. No aortic aneurysm. BOWEL: Unremarkable. No obstruction. No gross mural thickening. APPENDIX: Not visualize. There are no secondary signs of appendicitis. PERITONEUM: Unremarkable. No free fluid. No free air. LYMPH NODES: Unremarkable. No enlarged lymph nodes. BLADDER: Unremarkable. REPRODUCTIVE: The previous study showed a left adnexal cyst which is no longer seen. Previous hysterectomy BONES: No acute fracture. OTHER FINDINGS: None. IMPRESSION: No evidence of malignancy. No acute findings
[2017-07-28] MEDS ORDERED: Peg-Electrolyte Oral Soln 4L (Golytely) PO ONE (14:00)
--- NOTE | 2017-07-28 21:14 | CP.PCM.PN ---
Subjective - Date & Time of Evaluation Date of Evaluation: 07/28/17 Time of Evaluation: 13:00 - Subjective Subjective: ct abdomen\chest-WNL. going for EGD\colonoscopy in am very anxious about procedures ,asking repititvely about her tolerability at her age . labs-WNL. Objective - Vital Signs/Intake and Output Vital Signs (last 24 hours): Temp Pulse Resp BP Pulse Ox 98 F 89 20 122/77 97 07/28/17 15:15 07/28/17 16:00 07/28/17 15:15 07/28/17 15:15 07/28/17 15:52 - Medications Medications: Current Medications Aspirin (Ecotrin) 81 mg PO DAILY [facility] Last Admin: 07/28/17 10:04 Dose: 81 mg Enoxaparin Sodium (Lovenox) 40 mg SC DAILY [facility] Last Admin: 07/28/17 10:04 Dose: 40 mg Ergocalciferol (Drisdol 50,000 Intl Units Cap) 1 cap PO QWK [facility] Last Admin: 07/27/17 09:59 Dose: 1 cap Levothyroxine Sodium (Synthroid) 25 mcg PO DAILY@0630 [facility] Last Admin: 07/28/17 05:59 Dose: 25 mcg Losartan Potassium (Cozaar) 12.5 mg PO DAILY [facility] Last Admin: 07/28/17 10:08 Dose: 12.5 mg Rosuvastatin Calcium (Crestor) 5 mg PO HS [facility] Last Admin: 07/27/17 21:02 Dose: 5 mg - Labs Labs: 07/28/17 10:16 07/28/17 10:16 PT 11.0 SECONDS (9.7-12.2) 07/26/17 11:20 INR 1.0 07/26/17 11:20 APTT 30 SECONDS (21-34) 07/26/17 11:20 - Additional Findings Additional findings: - Constitutional Appears: No Acute Distress - Head Exam Head Exam: ATRAUMATIC, NORMAL INSPECTION - Eye Exam Eye Exam: EOMI, Normal appearance, PERRL - ENT Exam ENT Exam: Normal Exam - Neck Exam Neck exam: Positive for: Normal Inspection. Negative for: Thyromegaly - Respiratory Exam Respiratory Exam: Clear to Auscultation Bilateral, NORMAL BREATHING PATTERN - Cardiovascular Exam Cardiovascular Exam: REGULAR RHYTHM, +S1, +S2, Systolic Murmur - GI/Abdominal Exam GI & Abdominal Exam: Normal Bowel Sounds, Soft. absent: Distended, Organomegaly , Tenderness - Extremities Exam Extremities exam: Positive for: full ROM, pedal pulses present - Back Exam Back exam: NORMAL INSPECTION. absent: paraspinal tenderness - Neurological Exam Neurological exam: Alert, CN II-XII Intact, Normal Gait, Oriented x3 - Psychiatric Exam Psychiatric exam: Anxious - Skin Skin Exam: Intact, Normal Color Assessment and Plan (1) GI bleed Status: Chronic (2) Weight loss Status: Acute (3) CAD (coronary artery disease) Status: Chronic (4) Hypothyroid Status: Chronic (5) Hepatitis Assessment & Plan: with elevated alk used be on urocholic acd in pas as per patient Status: Chronic - Assessment and Plan (Free Text) Plan: undergoing for pre-prep for v=colonoscopy reassurance provided at length she is stable for procedure d\w GI awaiting for labs for hepatitis work up.
[2017-07-29] MEDS: Levothyroxine 25 MCG TAB PO SCH (05:52)
[2017-07-29 08:33] LABS: HEMATOCRIT 36.5 % (34.0-47.0); MEAN CELL VOLUME 91.9 fL (81.0-99.0); MEAN CORPUSCULAR HEMOGLOBIN 30.9 pg (27.0-31.0); MEAN CORPUSCULAR HGB CONC 33.6 g/dL (33.0-37.0); MEAN PLATELET VOLUME 8.7 fL (7.2-11.7); RED CELL DISTRIBUTION WIDTH 14.9 % (11.5-14.5); WHITE BLOOD COUNT 12.3 K/uL (4.8-10.8)
[2017-07-29] MEDS: Losartan 12.5 MG TAB PO SCH (09:41)
[2017-07-29] MEDS: Enoxaparin 40 mg Syringe SC SCH (09:47)
[2017-07-29] MEDS ORDERED: MethylPREDNISolone 40 mg Vial IVP ONE (13:15)
[2017-07-29] MEDS ORDERED: Lidocaine Hydrochloride 5 ML INJ ONE (13:43)
[2017-07-29] MEDS ORDERED: Propofol 10 mg/ml Inj (20 ML) ONE (13:43)
[2017-07-29] MEDS ORDERED: Lactated Ringer's 1,000 ML IV ONE (13:45)
--- NOTE | 2017-07-29 14:38 | CP.PCM.PN ---
Subjective - Date & Time of Evaluation Date of Evaluation: 07/29/17 Time of Evaluation: 14:34 - Subjective Subjective: Patient seen and examined, no acute events overnight. She denies abdominal pain , nausea, vomiting. s/p EGD and colonoscopy today showing mild gastritis, multiple colon polyps, small hemorrhoids. Objective - Vital Signs/Intake and Output Vital Signs (last 24 hours): Temp Pulse Resp BP Pulse Ox 98.1 F 68 20 136/78 98 07/29/17 12:26 07/29/17 12:26 07/29/17 12:26 07/29/17 12:07/29/17 12:26 - Medications Medications: Current Medications Aspirin (Ecotrin) 81 mg PO DAILY [facility] Last Admin: 07/29/17 09:41 Dose: 81 mg Enoxaparin Sodium (Lovenox) 40 mg SC DAILY [facility] Last Admin: 07/29/17 09:47 Dose: Not Given Ergocalciferol (Drisdol 50,000 Intl Units Cap) 1 cap PO QWK [facility] Last Admin: 07/27/17 09:59 Dose: 1 cap Levothyroxine Sodium (Synthroid) 25 mcg PO DAILY@0630 [facility] Last Admin: 07/29/17 05:52 Dose: Not Given Losartan Potassium (Cozaar) 12.5 mg PO DAILY [facility] Last Admin: 07/29/17 09:41 Dose: 12.5 mg Rosuvastatin Calcium (Crestor) 5 mg PO HS [facility] Last Admin: 07/28/17 21:35 Dose: 5 mg - Labs Labs: 07/29/17 08:19 PT 11.0 SECONDS (9.7-12.2) 07/29/17 08:19 INR 1.0 07/29/17 08:19 APTT 30 SECONDS (21-34) 07/26/17 11:20 Assessment and Plan - Assessment and Plan (Free Text) Assessment: CAD s/p PCI COPD Ovarian cystadenoma s/p ROMAN Hypothyroidism Unexplained weight loss - s/p EGD and colonoscopy today showing gastritis, multiple colon polyps, internal hemorrhoids CT imaging reviewed by me showing no gross pathology Plan: - Advance diet as tolerated - Follow up biopsy results from EGD/colonsocopy - Begin once daily PPI therapy for treatment duration of 1 month - Monitor LFTs, awaiting results of autoimmune panel - Would pursue alternate reasons for unexplained weight loss, no clear GI source present. Will sign off case, please reconsult as necessary, thank you. Case discussed with Dr. Morales.
[2017-07-29 17:35] VITALS: RESP 20
--- NOTE | 2017-07-29 18:06 | CP.PCM.PN ---
Subjective - Date & Time of Evaluation Date of Evaluation: 07/29/17 Time of Evaluation: 13:16 - Subjective Subjective: PT SEEN REQUESTED BY RN YURI Pacheco FOR RASH TO FACE. PT ADMITS TO HAVING CT W IV CONTRAST YESRTERDAY. SHE HAS A PRIOR H/O CT IV DYE ALLERGY AND REC'D THE PRE -MEDICATION YESTERDAY. PT NOTED REDNESS TO NOSE AND CHEEKS THIS AFTERNOON. LIKELY DELAYED ALLERGIC RESPONSE TO CT CONTRAST. ON EXAM PT HAS MILD ERYTHEMA TO B/L CHEEKS AND BRIDGE OF NOSE; NO HIVES OR SKIN OPENINGS NOTED, NO OOZING. PT IS SCHEDULED FOR ENDOSCOPY WITHIN 45-60 MINUTES PER RN YURI Pacheco. CANNOT GIVE BENADRYL 2/2 RISK OF HYPOTENSION WITH THE ANESTHESIA. SOLUMEDROL 60 MG IV X1 DOSE ORDERED. WILL RE-EVAL AFTER PROCEDURE. Objective - Vital Signs/Intake and Output Vital Signs (last 24 hours): Temp Pulse Resp BP Pulse Ox 98.1 F 64 20 134/76 97 07/29/17 15:32 07/29/17 16:00 07/29/17 15:32 07/29/17 15:32 07/29/17 15:32 - Medications Medications: Current Medications Aspirin (Ecotrin) 81 mg PO DAILY [facility] Last Admin: 07/29/17 09:41 Dose: 81 mg Enoxaparin Sodium (Lovenox) 40 mg SC DAILY [facility] Last Admin: 07/29/17 09:47 Dose: Not Given Ergocalciferol (Drisdol 50,000 Intl Units Cap) 1 cap PO QWK [facility] Last Admin: 07/27/17 09:59 Dose: 1 cap Levothyroxine Sodium (Synthroid) 25 mcg PO DAILY@0630 [facility] Last Admin: 07/29/17 05:52 Dose: Not Given Losartan Potassium (Cozaar) 12.5 mg PO DAILY [facility] Last Admin: 07/29/17 09:41 Dose: 12.5 mg Rosuvastatin Calcium (Crestor) 5 mg PO HS [facility] Last Admin: 07/28/17 21:35 Dose: 5 mg - Labs Labs: 07/29/17 08:19 PT 11.0 SECONDS (9.7-12.2) 07/29/17 08:19 INR 1.0 07/29/17 08:19 APTT 30 SECONDS (21-34) 07/26/17 11:20
--- NOTE | 2017-07-29 22:51 | CP.PCM.PN ---
Subjective - Date & Time of Evaluation Date of Evaluation: 07/29/17 Time of Evaluation: 15:00 - Subjective Subjective: fees tired and week .s\p colonoscopy and GED- no significant findings.d\w GI. other test results pending mild elevation LFTS c\o abdominal pain- left side ,dull feels ,bloated, 2-3 , episodic.denies N\ vomiting\fever etc Objective - Vital Signs/Intake and Output Vital Signs (last 24 hours): Temp Pulse Resp BP Pulse Ox 98.1 F 64 20 134/76 97 07/29/17 15:32 07/29/17 16:00 07/29/17 15:32 07/29/17 15:32 07/29/17 15:32 - Medications Medications: Current Medications Aspirin (Ecotrin) 81 mg PO DAILY [facility] Last Admin: 07/29/17 09:41 Dose: 81 mg Enoxaparin Sodium (Lovenox) 40 mg SC DAILY [facility] Last Admin: 07/29/17 09:47 Dose: Not Given Ergocalciferol (Drisdol 50,000 Intl Units Cap) 1 cap PO QWK [facility] Last Admin: 07/27/17 09:59 Dose: 1 cap Levothyroxine Sodium (Synthroid) 25 mcg PO DAILY@0630 [facility] Last Admin: 07/29/17 05:52 Dose: Not Given Losartan Potassium (Cozaar) 12.5 mg PO DAILY [facility] Last Admin: 07/29/17 09:41 Dose: 12.5 mg Rosuvastatin Calcium (Crestor) 5 mg PO HS [facility] Last Admin: 07/29/17 21:46 Dose: 5 mg - Labs Labs: 07/29/17 08:19 PT 11.0 SECONDS (9.7-12.2) 07/29/17 08:19 INR 1.0 07/29/17 08:19 APTT 30 SECONDS (21-34) 07/26/17 11:20 - Additional Findings Additional findings: - Constitutional Appears: No Acute Distress - Head Exam Head Exam: ATRAUMATIC, NORMAL INSPECTION - Eye Exam Eye Exam: EOMI, Normal appearance, PERRL - ENT Exam ENT Exam: Normal Exam - Neck Exam Neck exam: Positive for: Normal Inspection. Negative for: Thyromegaly - Respiratory Exam Respiratory Exam: Clear to Auscultation Bilateral, NORMAL BREATHING PATTERN - Cardiovascular Exam Cardiovascular Exam: REGULAR RHYTHM, +S1, +S2, Systolic Murmur - GI/Abdominal Exam GI & Abdominal Exam: Normal Bowel Sounds, Soft. absent: Distended, Organomegaly , mild tenderness on LUQ Tenderness - Extremities Exam Extremities exam: Positive for: full ROM, pedal pulses present - Back Exam Back exam: NORMAL INSPECTION. absent: paraspinal tenderness - Neurological Exam Neurological exam: Alert, CN II-XII Intact, Normal Gait, Oriented x3 - Psychiatric Exam Psychiatric exam: Anxious - Skin Skin Exam: Intact, Normal Color Assessment and Plan (1) Abdominal pain Assessment & Plan: AXR Possible gasy pain r\o perforation.tolerating diet Status: Acute (2) Hepatitis Status: Chronic (3) Weight loss Status: Acute (4) CAD (coronary artery disease) Status: Chronic (5) Hypothyroid Status: Chronic (6) Essential (primary) hypertension Status: Chronic - Assessment and Plan (Free Text) Plan: continue all meds
[2017-07-30] MEDS: Levothyroxine 25 MCG TAB PO SCH (06:10)
[2017-07-30] MEDS: Losartan 12.5 MG TAB PO SCH (10:04)
[2017-07-30] MEDS: Enoxaparin 40 mg Syringe SC SCH (10:04)
[2017-07-30 12:05] LABS: BASO % 0.1 % (0.0-2.0); LYMPH # 1.5 K/uL (1.0-4.3); LYMPH % 12.9 % (20.0-40.0); MEAN CELL VOLUME 92.4 fL (81.0-99.0); MEAN CORPUSCULAR HEMOGLOBIN 30.7 pg (27.0-31.0); MEAN CORPUSCULAR HGB CONC 33.2 g/dL (33.0-37.0); MEAN PLATELET VOLUME 8.9 fL (7.2-11.7); MONO # 0.8 K/uL (0.0-0.8); MONO % 7.3 % (0.0-10.0); RED CELL DISTRIBUTION WIDTH 15.4 % (11.5-14.5); WHITE BLOOD COUNT 11.4 K/uL (4.8-10.8)
[2017-07-30 12:38] LABS: CHLORIDE 104 mmol/L (98-107); POTASSIUM 3.8 mmol/L (3.6-5.2); SODIUM 141 mmol/L (132-148)
[2017-07-30 12:40] LABS: AST/SGOT 30 U/L (14-36); BILIRUBIN,TOTAL 0.5 mg/dL (0.2-1.3); CARBON DIOXIDE 26 mmol/L (22-30); GFR AFRICAN-AMERICAN > 60
[2017-07-30 12:41] LABS: ALKALINE PHOSPHATASE 132 U/L (38-126); ALT/SGPT 56 U/L (9-52); BLOOD UREA NITROGEN 21 mg/dL (7-17); CALCIUM 9.3 mg/dl (8.6-10.4); GLUCOSE,RANDOM 83 mg/dL (65-105); TOTAL PROTEIN 6.6 g/dL (6.3-8.3)
--- NOTE | 2017-07-30 16:41 | RAD ---
HISTORY: abdominal pain COMPARISON: Comparison made with CT scan chest abdomen pelvis 07/28/2017 FINDINGS: BOWEL: Moderately large amount of stool is again seen in the cecum and ascending colon consistent with fecal retention/constipation. No evidence of acute mechanical bowel obstruction. No gross free air seen under the diaphragmatic surfaces. BONES: Mild degenerative spondylosis of the lower thoracic and lumbar spine again noted. OTHER FINDINGS: None. IMPRESSION: Findings consistent with mild constipation as above. No evidence of acute mechanical bowel obstruction
--- NOTE | 2017-07-30 23:47 | CP.PCM.PN ---
Subjective - Subjective Subjective: c\o pain on ledt side abdomen radiating to left shoulder. s\p colonoscopy. Objective - Vital Signs/Intake and Output Vital Signs (last 24 hours): Temp Pulse Resp BP Pulse Ox 97.9 F 97 H 20 125/71 98 07/30/17 15:12 07/30/17 16:00 07/30/17 15:12 07/30/17 15:12 07/30/17 15:12 Intake and Output: 07/30/17 07/31/17 18:59 06:59 Intake Total 320 Balance 320 - Medications Medications: Current Medications Aspirin (Ecotrin) 81 mg PO DAILY [facility] Last Admin: 07/30/17 10:04 Dose: 81 mg Enoxaparin Sodium (Lovenox) 40 mg SC DAILY [facility] Last Admin: 07/30/17 10:04 Dose: 40 mg Ergocalciferol (Drisdol 50,000 Intl Units Cap) 1 cap PO QWK [facility] Last Admin: 07/27/17 09:59 Dose: 1 cap Levothyroxine Sodium (Synthroid) 25 mcg PO DAILY@0630 [facility] Last Admin: 07/30/17 06:10 Dose: 25 mcg Losartan Potassium (Cozaar) 12.5 mg PO DAILY [facility] Last Admin: 07/30/17 10:04 Dose: 12.5 mg Rosuvastatin Calcium (Crestor) 5 mg PO HS [facility] Last Admin: 07/30/17 21:45 Dose: 5 mg - Labs Labs: 07/30/17 11:51 07/30/17 11:51 PT 11.0 SECONDS (9.7-12.2) 07/29/17 08:19 INR 1.0 07/29/17 08:19 APTT 30 SECONDS (21-34) 07/26/17 11:20 Assessment and Plan (1) GI bleed Status: Chronic (2) Weight loss Status: Acute (3) CAD (coronary artery disease) Status: Chronic (4) Hypothyroid Status: Chronic
[2017-07-31] MEDS: Levothyroxine 25 MCG TAB PO SCH (06:10)
[2017-07-31 08:27] VITALS: BP 146/77; TEMP 97.5; O2SAT 96
[2017-07-31] MEDS: Enoxaparin 40 mg Syringe SC SCH (09:14)
[2017-07-31] MEDS: Losartan 12.5 MG TAB PO SCH (09:15)
[2017-07-31 11:24] VITALS: PULSE 80
[2017-07-31 12:42] LABS: LKM-1 Ab (IgG) <=20.0 U (<=20.0)
[2017-07-31] MEDS ORDERED: Saccharomyces Boulardi 250 mg Cap PO ONE (13:00)
[2017-07-31] MEDS ORDERED: Pantoprazole 40 mg EC Tab PO ONE (13:00)
--- NOTE | 2017-07-31 13:03 | CP.PCM.PN ---
Subjective - Date & Time of Evaluation Date of Evaluation: 07/31/17 Time of Evaluation: 13:03 - Subjective Subjective: PT CLEARED FOR D/C PER Adia DEVINE. [employer] TECHNICIAN DISCUSSED + H-PYLORI RESULTS W GI FELLOW DR. THIERNO ESTES. PER GI PT CAN BE D/.C WITH PO AMOX AND CLARITHROMYCIN AND PPI X14 DAYS; FOLLOWED BY GI F/U IN OFFICE AND REPEAT H-PYLORI BREATH TEST. PT TO ALSO F/U WITH DR. DEVINE IN HER OFFICE NEXT WEEK AT 11:00 AM. PT VERBALIZES UNDERSTANDING OF ALL F/U AND D/C INSTRUCTIONS. Objective - Vital Signs/Intake and Output Vital Signs (last 24 hours): Temp Pulse Resp BP Pulse Ox 97.5 F L 80 20 146/77 96 07/31/17 07:00 07/31/17 10:00 07/31/17 07:00 07/31/17 07:00 07/31/17 07:00 Intake and Output: 07/31/17 07/31/17 06:59 18:59 Intake Total 440 Balance 440 - Medications Medications: Current Medications Aspirin (Ecotrin) 81 mg PO DAILY [facility] Last Admin: 07/31/17 09:15 Dose: 81 mg Enoxaparin Sodium (Lovenox) 40 mg SC DAILY [facility] Last Admin: 07/31/17 09:14 Dose: 40 mg Ergocalciferol (Drisdol 50,000 Intl Units Cap) 1 cap PO QWK [facility] Last Admin: 07/27/17 09:59 Dose: 1 cap Levothyroxine Sodium (Synthroid) 25 mcg PO DAILY@0630 [facility] Last Admin: 07/31/17 06:10 Dose: 25 mcg Losartan Potassium (Cozaar) 12.5 mg PO DAILY [facility] Last Admin: 07/31/17 09:15 Dose: 12.5 mg Rosuvastatin Calcium (Crestor) 5 mg PO HS [facility] Last Admin: 07/30/17 21:45 Dose: 5 mg - Labs Labs: 07/30/17 11:51 07/30/17 11:51 PT 11.0 SECONDS (9.7-12.2) 07/29/17 08:19 INR 1.0 07/29/17 08:19 APTT 30 SECONDS (21-34) 07/26/17 11:20
--- NOTE | 2017-08-04 00:05 | CP.PCM.DIS ---
Provider - Provider Date of Admission: 07/28/17 23:04 Attending physician: Donell Morales MD Time Spent in preparation of Discharge (in minutes): 30 Diagnosis - Discharge Diagnosis (1) Abdominal pain Status: Acute (2) Hepatitis Status: Chronic (3) Weight loss Status: Acute (4) CAD (coronary artery disease) Status: Chronic (5) Hypothyroid Status: Chronic Priority: Medium (6) Essential (primary) hypertension Status: Chronic Priority: Medium Hospital Course - Lab Results Lab Results: Most Recent Lab Values WBC 11.4 K/uL (4.8-10.8) H 07/30/17 11:51 RBC 3.57 Mil/uL (3.80-5.20) L 07/30/17 11:51 Hgb 11.0 g/dL (11.0-16.0) 07/30/17 11:51 Hct 33.0 % (34.0-47.0) L 07/30/17 11:51 MCV 92.4 fL (81.0-99.0) 07/30/17 11:51 MCH 30.7 pg (27.0-31.0) 07/30/17 11:51 MCHC 33.2 g/dL (33.0-37.0) 07/30/17 11:51 RDW 15.4 % (11.5-14.5) H 07/30/17 11:51 Plt Count 257 K/uL (130-400) 07/30/17 11:51 MPV 8.9 fL (7.2-11.7) 07/30/17 11:51 Neut % (Auto) 79.7 % (50.0-75.0) H 07/30/17 11:51 Lymph % (Auto) 12.9 % (20.0-40.0) L 07/30/17 11:51 Gage % (Auto) 7.3 % (0.0-10.0) 07/30/17 11:51 Eos % (Auto) 0.0 % (0.0-4.0) 07/30/17 11:51 Baso % (Auto) 0.1 % (0.0-2.0) 07/30/17 11:51 Neut # 9.1 K/uL (1.8-7.0) H 07/30/17 11:51 Lymph # 1.5 K/uL (1.0-4.3) 07/30/17 11:51 Gage # 0.8 K/uL (0.0-0.8) 07/30/17 11:51 Eos # 0.0 K/uL (0.0-0.7) 07/30/17 11:51 Baso # 0.0 K/uL (0.0-0.2) 07/30/17 11:51 Neutrophils % (Manual) 94 % (50-75) H 07/28/17 10:16 Band Neutrophils % 1 % (0-2) 07/28/17 10:16 Lymphocytes % (Manual) 5 % (20-40) L 07/28/17 10:16 Monocytes % (Manual) TEST NOT PERFORMED 07/28/17 10:16 Eosinophils % (Manual) 1 % (0-4) 07/26/17 11:20 Toxic Granulation Present 07/26/17 11:20 Platelet Estimate Normal (NORMAL) 07/28/17 10:16 Large Platelets Present 07/26/17 11:20 RBC Morphology Normal 07/28/17 10:16 Anisocytosis (manual) Slight 07/26/17 11:20 PT 11.0 SECONDS (9.7-12.2) 07/29/17 08:19 INR 1.0 07/29/17 08:19 APTT 30 SECONDS (21-34) 07/26/17 11:20 Sodium 141 mmol/L (132-148) 07/30/17 11:51 Potassium 3.8 mmol/L (3.6-5.2) 07/30/17 11:51 Chloride 104 mmol/L (98-107) 07/30/17 11:51 Carbon Dioxide 26 mmol/L (22-30) 07/30/17 11:51 Anion Gap 14 (10-20) 07/30/17 11:51 BUN 21 mg/dL (7-17) H 07/30/17 11:51 Creatinine 0.8 MG/DL (0.7-1.2) 07/30/17 11:51 Est GFR ( Amer) > 60 07/30/17 11:51 Est GFR (Non-Af Amer) > 60 07/30/17 11:51 Random Glucose 83 mg/dL (65-105) 07/30/17 11:51 Calcium 9.3 mg/dl (8.6-10.4) 07/30/17 11:51 Iron 55 ug/dL (37-170) 07/27/17 11:41 TIBC 291 ug/dL (250-450) 07/27/17 11:41 % Saturation 19 (20-55) L 07/27/17 11:41 Total Bilirubin 0.5 mg/dL (0.2-1.3) 07/30/17 11:51 GGT 119 U/L (8-78) H 07/28/17 10:16 AST 30 U/L (14-36) 07/30/17 11:51 ALT 56 U/L (9-52) H 07/30/17 11:51 Alkaline Phosphatase 132 U/L (38-126) H D 07/30/17 11:51 Total Protein 6.6 g/dL (6.3-8.3) 07/30/17 11:51 Albumin 3.3 g/dL (3.5-5.0) L 07/30/17 11:51 Globulin 3.3 gm/dL (2.2-3.9) 07/30/17 11:51 Albumin/Globulin Ratio 1.0 (1.0-2.1) 07/30/17 11:51 Mitochondrial AB Titer 1:640 Titer (< 1:20) H 07/29/17 08:19 Carcinoembryonic Ag 1.2 ng/mL (0-3.0) 07/27/17 07:07 CA 19-9 Antigen 2.5 U/mL (0-37) 07/26/17 16:43 CA 125 Antigen 39.1 U/mL (0-35) H 07/27/17 07:07 TSH 3rd Generation 3.40 mIU/L (0.46-4.68) 07/27/17 07:07 Stool Occult Blood Negative (NEGATIVE) 07/26/17 12:31 IgG 1113.6 mg/dL (700.0-1600.0) 07/29/17 08:19 SADIQ 6 Profile Negative (NEGATIVE) 07/29/17 08:19 Anti-Mitochondrial Ab Positive (Negative) H 07/29/17 08:19 Anti-Smooth Muscle Ab Negative (Negative) 07/29/17 08:19 Liver/Kid Microsomes Ab <=20.0 U (<=20.0) 07/29/17 08:19 Blood Type A POSITIVE 07/26/17 11:20 Antibody Screen Negative 07/26/17 11:20 Discharge Exam - Head Exam Head Exam: ATRAUMATIC, NORMAL INSPECTION Discharge Plan - Discharge Medications Prescriptions: Amoxicillin 1,000 mg PO BID 14 Days Clarithromycin [Biaxin Filmtab] 500 mg PO BID 14 Days Saccharomyces Boulardi [Florastor] 250 mg PO BID 14 Days Omeprazole 40 mg PO DAILY 14 Days - Follow Up Plan Condition: STABLE Disposition: HOME/ ROUTINE Instructions: Omeprazole (By mouth), Amoxicillin (By mouth), Clarithromycin ( By mouth), Probiotic (By mouth), Gastrointestinal Bleeding (DC), Colonoscopy (DC ), Heart Healthy Diet (DC), Upper Endoscopy (DC) Additional Instructions: FOLLOW UP WITH DR. MORALES IN THE OFFICE NEXT 08/07/17, AT 11:00AM---CALL OFFICE FOR ANY PROBLEMS. FOLLOW UP WITH DR. STUBBS (STOMACH DOCTOR)--ON THURSDAY CALL THE OFFICE AND LET THEM KNOW YOU WERE IN THE HOSPITAL AND DISCHARGED. ALSO TELL THEM THAT YOU ARE TAKING MEDICINE FOR "H-PYLORI" INFECTION AND NEED TO REPEAT THE "BREATH TEST" AFTER THE ANTIBIOTICS ARE COMPLETED---THEY WILL LET YOU KNOW WHEN TO RETAKE THE TEST. CONTINUE YOUR HOME MEDICATIONS USUAL. NEW PRESCRIPTIONS INCLUDE 2 ANTIBIOTICS AND A MEDICATION FOR YOU STOMACH; ALSO A PROBIOTIC FOR ANY NAUSEA/VOMITING THAT THE MEDICINE CAN GIVE YOU. SCHEDULE FOR TAKING NEW MEDICATIONS: AMOXICILLIN AND CLARITHROMYCIN (TAKE BOTH TWICE A DAY---TAKE WITH LUNCH AND AGAIN AT DINNER TIME; ON FULL STOMACH); PROTONIX (TAKE ONCE A DAY---MAY TAKE WITH LUNCH ); FLORASTOR (TAKE TWICE A DAY- --TAKE WITH LUNCH AND AGAIN AT DINNER TIME). YOU HAVE BEEN GIVEN A PRESCRIPTION FOR OUTPATIENT PHYSICAL THERAPY. ON THURSDAY, CONTACT YOUR INSURANCE COMPANY AND REQUEST A LIST OF PHYSICAL THERAPY FACILITIES IN YOUR AREA. FOR ANY FURTHER QUESTIONS, CONTACT DR. MORALES OR [facility]. Referrals: Francisco Stubbs MD [Staff Provider] - Donell Morales MD [Staff Provider] -
== END 2017-07-31 14:17 | disposition home or self-care (01) | DRG 394 ==
LOC: C.ER 10:23 → C.6T 12:25 → UNDOADMOB 12:25 → C.9E 12:25 → OBSVTOIN 07-28 23:04 → INTOOBSV 07-28 23:04 → UNDODISIN 07-31 14:17
PROVIDERS: ADMIT Internal Medicine; ATTEND Internal Medicine
PROC: 0DBE8ZX Excision of Large Intestine, Via Natural or Artificial Opening Endoscopic, Diagnostic (ICD-10-PCS; principal; 2017-07-29 13:45)
PROC: 0DB88ZX Excision of Small Intestine, Via Natural or Artificial Opening Endoscopic, Diagnostic (ICD-10-PCS; 2017-07-29 13:45)
DX: D12.2 Benign neoplasm of ascending colon (principal); K62.5 Hemorrhage of anus and rectum; J43.9 Emphysema, unspecified; K75.89 Other specified inflammatory liver diseases; D12.0 Benign neoplasm of cecum; D12.3 Benign neoplasm of transverse colon; K29.50 Unspecified chronic gastritis without bleeding; K64.1 Second degree hemorrhoids; B96.81 Helicobacter pylori [H. pylori] as the cause of diseases classified elsewhere; I25.10 Atherosclerotic heart disease of native coronary artery without angina pectoris; I10 Essential (primary) hypertension; E78.00 Pure hypercholesterolemia, unspecified; E03.9 Hypothyroidism, unspecified; Z95.5 Presence of coronary angioplasty implant and graft; Z90.49 Acquired absence of other specified parts of digestive tract; R63.4 Abnormal weight loss; Z87.891 Personal history of nicotine dependence; F41.9 Anxiety disorder, unspecified; L23.4 Allergic contact dermatitis due to dyes; T50.8X5A Adverse effect of diagnostic agents, initial encounter; D64.9 Anemia, unspecified

== ENCOUNTER 2017-08-03 13:06 | Emergency (ER) | payer MEDICARE, OTHER ==
[2017-08-03 13:07] VITALS: BMI 23.0
[2017-08-03 13:23] VITALS: RESP 20
[2017-08-03 14:42] LABS: BASO % 0.3 % (0.0-2.0); EOS # 0.1 K/uL (0.0-0.7); EOS % 1.8 % (0.0-4.0); HEMATOCRIT 34.4 % (34.0-47.0); LYMPH % 13.3 % (20.0-40.0); MEAN CELL VOLUME 92.7 fL (81.0-99.0); MEAN CORPUSCULAR HEMOGLOBIN 31.1 pg (27.0-31.0); MEAN CORPUSCULAR HGB CONC 33.5 g/dL (33.0-37.0); MEAN PLATELET VOLUME 8.3 fL (7.2-11.7); MONO # 0.5 K/uL (0.0-0.8); MONO % 6.8 % (0.0-10.0); WHITE BLOOD COUNT 7.2 K/uL (4.8-10.8)
--- NOTE | 2017-08-03 14:42 | C.PDOC ---
History Of Present Illness 77 y/o female presents to ED with complaints of hotness around flank since this morning. Patient also complaints of nausea and subjective fever. Patient has been recently hospitalized for abdominal pain and is currently on therapy for H.pylori. Patient reports he is compliant with medication and denies blood in stool or any other complaints at this time. Time Seen by Provider: 08/03/17 14:05 Chief Complaint (Nursing): Abdominal Pain History Per: Patient History/Exam Limitations: no limitations Onset/Duration Of Symptoms: Days Current Symptoms Are (Timing): Still Present Past Medical History Reviewed: Historical Data, Nursing Documentation, Vital Signs Vital Signs: Last Vital Signs Temp 98.9 F 08/03/17 13:22 Pulse 109 H 08/03/17 13:22 Resp 20 08/03/17 13:22 BP 133/75 08/03/17 13:22 Pulse Ox 99 08/03/17 15:40 - Medical History PMH: Anxiety, CAD, COPD, Depression, Diverticulitis, Emphysema, HTN, Hypercholesterolemia, Hypothyroidism Surgical History: Appendectomy, Cholecystectomy, Coronary Stent (X4 7 YEARS AGO) - [facility] Procedures RESECTION OF BILATERAL FALLOPIAN TUBES, OPEN APPROACH (01/09/17) RESECTION OF BILATERAL OVARIES, OPEN APPROACH (01/09/17) RESECTION OF CERVIX, OPEN APPROACH (01/09/17) RESECTION OF UTERUS, OPEN APPROACH (01/09/17) Family History: States: Unknown Family Hx - Social History Hx Tobacco Use: No Hx Alcohol Use: No Hx Substance Use: No - Immunization History Hx Tetanus Toxoid Vaccination: No Hx Influenza Vaccination: No Hx Pneumococcal Vaccination: No Review Of Systems Except As Marked, All Systems Reviewed And Found Negative. Constitutional: Positive for: Fever. Negative for: Chills Gastrointestinal: Positive for: Nausea, Abdominal Pain. Negative for: Vomiting , Diarrhea Genitourinary: Negative for: Hematuria Musculoskeletal: Negative for: Back Pain Skin: Negative for: Rash Physical Exam - Physical Exam Appears: Non-toxic, Other (Anxious) Skin: Normal Color, Warm, Dry, No Rash Head: Atraumatic Eye(s): bilateral: Normal Inspection Oral Mucosa: Moist Neck: Normal ROM, Supple Chest: Symmetrical Cardiovascular: Rhythm Regular, No Murmur, Other (Tachycardic) Respiratory: Normal Breath Sounds, No Rales, No Rhonchi, No Wheezing Gastrointestinal/Abdominal: Soft, No Tenderness, No Guarding, No Rebound Back: No CVA Tenderness, No Paraspinal Tenderness Neurological/Psych: Oriented x3 ED Course And Treatment - Laboratory Results Result Diagrams: 08/03/17 14:37 08/03/17 14:37 Lab Interpretation: Normal (trop neg, UA neg.) O2 Sat by Pulse Oximetry: 99 (RA) Pulse Ox Interpretation: Normal Reevaluation Time: 15:38 Reassessment Condition: Unchanged (remains benign appearing) Medical Decision Making Medical Decision Making: d/c [address] Morales with a leukocytosis and no UA recently, pt c/o lower back discomforts since before admission. No d/c Summary available for review w/u now confirmed neg. ok for d/c and continue PO tx for H. Pylori Disposition Doctor Will See Patient In The: Office Counseled Patient/Family Regarding: Studies Performed, Diagnosis - Disposition Disposition Time: 15:40 Forms: [employer] (Bulgarian) - Clinical Impression Clinical Impression: Chronic lower back pain - Scribe Statement The provider has reviewed the documentation as recorded by the Jan Cheatham All medical record entries made by the Yamilexibnemo were at my direction and personally dictated by me. I have reviewed the chart and agree that the record accurately reflects my personal performance of the history, physical exam, medical decision making, and the department course for this patient. I have also personally directed, reviewed, and agree with the discharge instructions and disposition.
[2017-08-03 14:51] LABS: RBC URINE 1 /hpf (0-3); URINE BILIRUBIN NEGATIVE (NEGATIVE); URINE BLOOD NEGATIVE (NEGATIVE); URINE COLOR Straw (YELLOW); URINE GLUCOSE (UA) NORMAL (Normal); URINE KETONE NEGATIVE (NEGATIVE); URINE LEUKOCYTE ESTERASE 1+ Leu/uL (Negative); URINE PROTEIN NEGATIVE (NEGATIVE); URINE UROBILINOGEN NORMAL mg/dL (0.2-1.0); WBC URINE 2 /hpf (0-5)
[2017-08-03 15:15] LABS: ALB/GLOB RATIO 1.2 (1.0-2.1); ALKALINE PHOSPHATASE 162 U/L (38-126); ALT/SGPT 56 U/L (9-52); AST/SGOT 44 U/L (14-36); BILIRUBIN,TOTAL 0.8 mg/dL (0.2-1.3); BLOOD UREA NITROGEN 16 mg/dL (7-17); CALCIUM 9.5 mg/dl (8.6-10.4); CARBON DIOXIDE 24 mmol/L (22-30); CHLORIDE 102 mmol/L (98-107); GFR AFRICAN-AMERICAN > 60; GLUCOSE,RANDOM 85 mg/dL (65-105); POTASSIUM 3.4 mmol/L (3.6-5.2); SODIUM 139 mmol/L (132-148); TOTAL PROTEIN 7.5 g/dL (6.3-8.3)
[2017-08-03 15:55] VITALS: BP 125/69; PULSE 63; TEMP 97.8; O2SAT 96
== END 2017-08-03 15:55 | disposition home or self-care (01) ==
LOC: C.ER 13:06
DX: M54.5 Low back pain (principal); G89.29 Other chronic pain; I10 Essential (primary) hypertension; E78.00 Pure hypercholesterolemia, unspecified; Z87.891 Personal history of nicotine dependence

== ENCOUNTER 2017-10-09 09:27 | Observation (INO) | payer MEDICARE, OTHER ==
[2017-10-09 09:36] VITALS: BMI 21.7
[2017-10-09 10:34] LABS: BASO # 0.1 K/uL (0.0-0.2); BASO % 0.8 % (0.0-2.0); EOS # 0.1 K/uL (0.0-0.7); EOS % 1.5 % (0.0-4.0); HEMATOCRIT 38.6 % (34.0-47.0); LYMPH # 0.9 K/uL (1.0-4.3); LYMPH % 11.3 % (20.0-40.0); MEAN CORPUSCULAR HEMOGLOBIN 31.5 pg (27.0-31.0); MEAN CORPUSCULAR HGB CONC 33.1 g/dL (33.0-37.0); MEAN PLATELET VOLUME 8.7 fL (7.2-11.7); MONO # 0.5 K/uL (0.0-0.8); MONO % 6.9 % (0.0-10.0); NRBC % 0.1 % (0.0-2.0); RED CELL DISTRIBUTION WIDTH 14.6 % (11.5-14.5); WHITE BLOOD COUNT 7.7 K/uL (4.8-10.8)
--- NOTE | 2017-10-09 10:40 | C.PDOC ---
History Of Present Illness 77 year old female presents to the ER for a complaint of headache, nausea, and dizziness since yesterday. Patient states she was walking on [address] [place] and tripped and fell hitting her face, hands and knees. At the time patient thought she was okay, but a few hours later to develop nausea, vomiting , and headache. She also felt "dizzy" described as unsteady, prompting her to come to ED. Also notes when she takes a deep breath, she has pain to the "ribs" . Unsure of direct trauma. Denies change in vision, chest pain, or SOB. - HPI Time Seen by Provider: 10/09/17 09:45 Chief Complaint (Nursing): Trauma History Per: Patient History/Exam Limitations: no limitations Onset/Duration Of Symptoms: Hrs Injury Occurred (Timing): Days Ago: (Yesterday) Location Of Injury: Left: Chest, Anterior: Face Recent travel outside of the [place]: No - Fall Fall:Prior To Injury: Tripped Past Medical History Reviewed: Historical Data, Nursing Documentation, Vital Signs Vital Signs: Last Vital Signs Temp 98.7 F 10/09/17 14:00 Pulse 83 10/09/17 15:50 Resp 18 10/09/17 15:50 BP 140/69 10/09/17 15:50 Pulse Ox 98 10/09/17 15:50 - Medical History PMH: Anxiety, CAD, COPD, Depression, Diverticulitis, Emphysema, HTN, Hypercholesterolemia, Hypothyroidism Surgical History: Appendectomy, Cholecystectomy, Coronary Stent (X4 7 YEARS AGO) - [facility] Procedures EXCISION OF LARGE INTESTINE, ENDO, DIAGN (07/28/17) EXCISION OF SMALL INTESTINE, ENDO, DIAGN (07/28/17) RESECTION OF BILATERAL FALLOPIAN TUBES, OPEN APPROACH (01/09/17) RESECTION OF BILATERAL OVARIES, OPEN APPROACH (01/09/17) RESECTION OF CERVIX, OPEN APPROACH (01/09/17) RESECTION OF UTERUS, OPEN APPROACH (01/09/17) Family History: States: Unknown Family Hx - Social History Hx Tobacco Use: No Hx Alcohol Use: No Hx Substance Use: No - Immunization History Hx Tetanus Toxoid Vaccination: No Hx Influenza Vaccination: No Hx Pneumococcal Vaccination: No Review Of Systems Cardiovascular: Negative for: Chest Pain Respiratory: Negative for: Shortness of Breath Gastrointestinal: Positive for: Nausea, Vomiting Musculoskeletal: Positive for: Other (Left rib pain) Neurological: Positive for: Headache Physical Exam - Physical Exam Appears: Well, Non-toxic, No Acute Distress Skin: Warm, Dry Head: Normacephalic, Tenderness ((+) tenderness, Ecchymosis and swelling to periorbital area), Swelling Eye(s): bilateral: Normal Inspection, PERRL, EOMI Ear(s): Bilateral: Normal Nose: Normal Oral Mucosa: Moist Throat: Normal, No Erythema, No Exudate Neck: Normal, Normal ROM, No Midline Cervical Tenderness, No Paracervical Tenderness, Supple Chest: Symmetrical, Tenderness (Left sided reproducible chest wall tenderness) Cardiovascular: Rhythm Regular Respiratory: Normal Breath Sounds, No Rales, No Rhonchi, No Wheezing Gastrointestinal/Abdominal: Soft, No Tenderness Extremity: Normal ROM (x4), Other (Superficial abrasions to bilateral hands) Neurological/Psych: Oriented x3, Normal Speech, Normal Cognition, Normal Cranial Nerves (2-12 grossly intact), Other (No focal deficits) ED Course And Treatment - Laboratory Results Result Diagrams: 10/09/17 10:28 10/09/17 10:28 O2 Sat by Pulse Oximetry: 98 (Room air) Pulse Ox Interpretation: Normal - CT Scan/US CT Head Other Rad Studies (CT/US): Read By Radiologist, Radiology Report Reviewed CT/US Interpretation: PROCEDURE: CT scan brain dated 10/09/2017. HISTORY: R/ O Bleed. COMPARISON: Comparison made with prior CT scan and MRI of the brain both dated 09/01/2015. Correlation also made with concurrent CT scan maxillofacial skeleton. TECHNIQUE: Axial computed tomography images were obtained through the head/brain without intravenous contrast. Radiation dose: Total exam DLP = 623.36 mGy-cm. This CT exam was performed using one or more of the following dose reduction techniques: Automated exposure control, adjustment of the mA and/or kV according to patient size, and/or use of iterative reconstruction technique. FINDINGS: HEMORRHAGE: No acute parenchymal, subarachnoid or extra-axial hemorrhage. BRAIN: Very mild diffuse / confluent chronic white matter ischemic changes seen extending peripherally into the deep and subcortical white matter both cerebral hemispheres. Note made of a somewhat elliptical shaped soft tissue masslike density containing calcification in the right inferior CP angle region that felt to represent volume averaging of the anterior inferior margin of the right cerebellar hemisphere and tortuous calcified right vertebral artery. Mild generalized volume loss. Vascular calcifications both carotid siphons. VENTRICLES: No obstructive hydrocephalus. CALVARIUM: No acute calvarial fractures. There is mild left periorbital soft tissue swelling that extends medially over the glabella region and laterally over the left zygomatic arch. There is also mild extension superiorly into the left supraorbital and frontal scalp. PARANASAL SINUSES: Unremarkable as visualized. No significant inflammatory changes. MASTOID AIR CELLS: Unremarkable as visualized. No inflammatory changes. OTHER FINDINGS: None. IMPRESSION: No acute intracranial hemorrhage. . Mild chronic periventricular white matter ischemic changes. Somewhat elliptical shaped soft tissue masslike density in the right anterior CP angle region is felt to represent volume averaging of the anterior inferior aspect of the right cerebellar hemisphere and adjacent tortuous calcified the right vertebral artery. CT Maxillofacial Other Rad Studies (CT/US): Read By Radiologist, Radiology Report Reviewed CT/US Interpretation: PROCEDURE: CT scan maxillofacial skeleton 10/09/2017. HISTORY: Trauma. COMPARISON: Correlation made with concurrent CT scan brain. TECHNIQUE: Contiguous helical/transaxial CT images of the maxillofacial bones were obtained. Coronal and sagittal reformats were generated. Radiation dose: Total exam DLP = 675.89 mGy-cm. FINDINGS: There is a tiny bony density within soft tissues adjacent to the anterior margin of the symphysis of the mandible which is nonspecific though could be related to poor dentition in this edentulous patient. No definitive acute maxillofacial skeletal fractures seen. There is mild left superior premaxillary, periorbital, supraorbital and left frontotemporal soft tissue swelling. Scalp swelling extends medially over bridge of the nose and glabella region and posterolaterally over the left zygomatic arch. The bony orbits intact. Globes intact and lenses appropriately located. Is a tiny elliptical shaped calcific like density adjacent the medial aspect left lobe likely representing senile calcification at the insertion site of the medial rectus muscle. There are no retrobulbar hemorrhages or collections. Optic nerves and extraocular musculature unremarkable. The visualized paranasal sinuses are well-developed and currently well-aerated. There are no fluid levels seen to suggest acute sinusitis. Minimal mucosal thickening noted within a few ethmoid air cells. The mastoid air complexes are also well developed and currently well-aerated. IMPRESSION: Tiny bony density within the soft tissues adjacent to the anterior margin of the symphysis of the mandible which is nonspecific though could be related to poor dentition in this edentulous patient. No definitive acute maxillofacial skeletal fractures. . Left-sided facial soft tissue swelling as described. Findings discussed with emergency room HERMINIO Scott at approximately 11:20 a.m. with written down and read back verification. Progress Note: Blood work, CT head, CT maxillofacial, ribs/chest x-ray, and urinalysis ordered. Tylenol administered. Case discussed with Dr Morales, who instructs medicine admission. Case discussed with Dr Jarvis who agreed upon plan and admission. Disposition - Disposition Disposition: HOSPITALIZED Disposition Time: 15:30 Condition: STABLE - Clinical Impression Clinical Impression: UTI (urinary tract infection), Concussion with no loss of consciousness, Chest pain - Scribe Statement Low Jones All medical record entries made by the Scribe were at my direction and personally dictated by me. I have reviewed the chart and agree that the record accurately reflects my personal performance of the history, physical exam, medical decision making, and the department course for this patient. I have also personally directed, reviewed, and agree with the discharge instructions and disposition.
[2017-10-09 11:00] LABS: ALB/GLOB RATIO 1.1 (1.0-2.1); ALKALINE PHOSPHATASE 168 U/L (38-126); ALT/SGPT 56 U/L (9-52); AST/SGOT 45 U/L (14-36); BILIRUBIN,TOTAL 0.7 mg/dL (0.2-1.3); BLOOD UREA NITROGEN 15 mg/dL (7-17); CALCIUM 8.8 mg/dl (8.6-10.4); CARBON DIOXIDE 24 mmol/L (22-30); CHLORIDE 104 mmol/L (98-107); GFR AFRICAN-AMERICAN > 60; GLUCOSE,RANDOM 123 mg/dL (65-105); POTASSIUM 4.2 mmol/L (3.6-5.2); SODIUM 138 mmol/L (132-148); TOTAL PROTEIN 7.7 g/dL (6.3-8.3)
[2017-10-09 11:03] LABS: RBC URINE 6 /hpf (0-3); URINE BACTERIA RARE (<OCC); URINE BILIRUBIN NEGATIVE (NEGATIVE); URINE BLOOD 1+ (NEGATIVE); URINE COLOR Yellow (YELLOW); URINE GLUCOSE (UA) NORMAL (Normal); URINE KETONE NEGATIVE (NEGATIVE); URINE PROTEIN NEGATIVE (NEGATIVE); URINE UROBILINOGEN NORMAL mg/dL (0.2-1.0)
[2017-10-09 11:05] LABS: URINE LEUKOCYTE ESTERASE 1+ Leu/uL (Negative); WBC URINE 10 /hpf (0-5)
--- NOTE | 2017-10-09 11:23 | CT ---
PROCEDURE: CT scan maxillofacial skeleton 10/09/2017 HISTORY: Trauma. COMPARISON: Correlation made with concurrent CT scan brain TECHNIQUE: Contiguous helical/transaxial CT images of the maxillofacial bones were obtained. Coronal and sagittal reformats were generated. Radiation dose: Total exam DLP = 675.89 mGy-cm. FINDINGS: There is a tiny bony density within soft tissues adjacent to the anterior margin of the symphysis of the mandible which is nonspecific though could be related to poor dentition in this edentulous patient. No definitive acute maxillofacial skeletal fractures seen. There is mild left superior premaxillary, periorbital, supraorbital and left frontotemporal soft tissue swelling. Scalp swelling extends medially over bridge of the nose and glabella region and posterolaterally over the left zygomatic arch. The bony orbits intact. Globes intact and lenses appropriately located. Is a tiny elliptical shaped calcific like density adjacent the medial aspect left lobe likely representing senile calcification at the insertion site of the medial rectus muscle. There are no retrobulbar hemorrhages or collections. Optic nerves and extraocular musculature unremarkable. The visualized paranasal sinuses are well-developed and currently well-aerated. There are no fluid levels seen to suggest acute sinusitis. Minimal mucosal thickening noted within a few ethmoid air cells. The mastoid air complexes are also well developed and currently well-aerated IMPRESSION: Tiny bony density within the soft tissues adjacent to the anterior margin of the symphysis of the mandible which is nonspecific though could be related to poor dentition in this edentulous patient. No definitive acute maxillofacial skeletal fractures. . Left-sided facial soft tissue swelling as described. Findings discussed with emergency room HERMINIO Scott at approximately 11:20 a.m. with written down and read back verification.
--- NOTE | 2017-10-09 11:24 | CT ---
PROCEDURE: CT scan brain dated 10/09/2017 HISTORY: R/O Bleed COMPARISON: Comparison made with prior CT scan and MRI of the brain both dated 09/01/2015. Correlation also made with concurrent CT scan maxillofacial skeleton. TECHNIQUE: Axial computed tomography images were obtained through the head/brain without intravenous contrast. Radiation dose: Total exam DLP = 623.36 mGy-cm. This CT exam was performed using one or more of the following dose reduction techniques: Automated exposure control, adjustment of the mA and/or kV according to patient size, and/or use of iterative reconstruction technique. FINDINGS: HEMORRHAGE: No acute parenchymal, subarachnoid or extra-axial hemorrhage. BRAIN: Very mild diffuse/ confluent chronic white matter ischemic changes seen extending peripherally into the deep and subcortical white matter both cerebral hemispheres. Note made of a somewhat elliptical shaped soft tissue masslike density containing calcification in the right inferior CP angle region that felt to represent volume averaging of the anterior inferior margin of the right cerebellar hemisphere and tortuous calcified right vertebral artery Mild generalized volume loss. Vascular calcifications both carotid siphons. VENTRICLES: No obstructive hydrocephalus. CALVARIUM: No acute calvarial fractures. There is mild left periorbital soft tissue swelling that extends medially over the glabella region and laterally over the left zygomatic arch. There is also mild extension superiorly into the left supraorbital and frontal scalp. PARANASAL SINUSES: Unremarkable as visualized. No significant inflammatory changes. MASTOID AIR CELLS: Unremarkable as visualized. No inflammatory changes. OTHER FINDINGS: None. IMPRESSION: No acute intracranial hemorrhage. . Mild chronic periventricular white matter ischemic changes. Somewhat elliptical shaped soft tissue masslike density in the right anterior CP angle region is felt to represent volume averaging of the anterior inferior aspect of the right cerebellar hemisphere and adjacent tortuous calcified the right vertebral artery.
--- NOTE | 2017-10-09 12:34 | RAD ---
PROCEDURE: Radiographs of the Chest and Left Ribs. HISTORY: pain COMPARISON: Chest x-ray performed 12/06/26, CT chest performed contrast 07/28/17 TECHNIQUE: Frontal radiograph of the chest and multiple oblique radiographs of the left ribs were obtained. FINDINGS: LEFT RIBS: No acute displaced fracture identified. Osseous demineralization limits evaluation for acute fracture line. Chronic fracture deformity involving the lateral 2nd rib. Acromioclavicular arthropathy. LUNGS: Right upper lobe probable scarring. Right lung base opacity may represent atelectasis/infiltrate and small effusion. No definite pneumothorax. CARDIOVASCULAR: Heart size appears within limits. Ectatic aorta. Atherosclerotic calcifications of the aorta. OTHER FINDINGS: None. IMPRESSION: Right lung base opacity may represent atelectasis/infiltrate and small effusion. Right upper lobe probable nodular scarring. Osseous demineralization. Chronic lateral left 2nd rib deformity. No acute displaced fracture identified.
--- NOTE | 2017-10-09 15:21 | CP.PCM.HP ---
History of Present Illness - History of Present Illness History of Present Illness: CC: Fall, facial trauma, left sided chest pain HPI: Patient is a 77 year old female with a history of HTN, hypothyroidism, hyperlipidemia and H. 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 She also says that she has felt light headed as if she was about to pass out last night and this morning and that is why she came to the ED. She says that she occastional shortness of breath and chest tightness but not recently. She also says she was having some blurry vision it seemed that started last night but has not worsened. She currently denies any changes in hearing, confusion, fever , chills, diarrhea, coughing, chest tightness, pain when inhaling, but does report some dysuria, burning when she urinates for the past few days, depression , anxiety, joint pain, or muscle weakness. She recently finished an antibiotic treatment course for H. Pylori. PMH: see above PSH: hysterectomy, cholecystectomy, appendindectomy FH: Brother from heart disease in his 70s SH: Lives alone, former smoker quit some time ago, denies etoh, or illicit drug use. PMD: Present on Admission - Present on Admission Any Indicators Present on Admission: No History of DVT/PE: No History of Uncontrolled Diabetes: No Urinary Catheter: No Decubitus Ulcer Present: No History Surgical Site Infection Following: None Review of Systems - Constitutional Constitutional: Headache. absent: Chills, Fatigue, Fever - EENT Eyes: Blurred Vision, Change in Vision Ears: Dizziness - Cardiovascular Cardiovascular: Chest Pain, Palpitations. absent: Diaphoresis, Dyspnea, Syncope - Respiratory Respiratory: absent: Cough, Dyspnea, Wheezing - Gastrointestinal Gastrointestinal: Nausea, Vomiting. absent: Abdominal Pain, Diarrhea - Genitourinary Genitourinary: Dysuria. absent: Voiding Freq/Small Amts - Musculoskeletal Musculoskeletal: absent: Muscle Weakness, Numbness, Tingling - Neurological Neurological: Dizziness. absent: Confusion, Headaches, Memory Loss, Syncope, Tremor, Weakness - Psychiatric Psychiatric: absent: Anxiety - Endocrine Endocrine: Palpitations. absent: Fatigue Past Patient History - Past Medical History & Family History Past Medical History?: Yes - Past Social History Smoking Status: Former Smoker - CARDIAC Hx Hypercholesterolemia: Yes Hx Hypertension: Yes - PULMONARY Hx Chronic Obstructive Pulmonary Disease (COPD): Yes Hx Emphysema: Yes - NEUROLOGICAL Hx Neurological Disorder: No - HEENT Hx HEENT Problems: Yes Hx Cataracts: Yes (BILAT IOL) - RENAL Hx Chronic Kidney Disease: No - ENDOCRINE/METABOLIC Hx Hypothyroidism: Yes - HEMATOLOGICAL/ONCOLOGICAL Hx Blood Disorders: No - INTEGUMENTARY Hx Dermatological Problems: No - MUSCULOSKELETAL/RHEUMATOLOGICAL Hx Musculoskeletal Disorders: Yes Hx Back Pain: Yes Hx Falls: No Hx Herniated Disk: Yes (LUMBAR) - GASTROINTESTINAL Hx Diverticulitis: Yes - GENITOURINARY/GYNECOLOGICAL Hx Genitourinary Disorders: Yes (FIBROID UTERUS) - PSYCHIATRIC Hx Anxiety: Yes Hx Depression: Yes Hx Substance Use: No - SURGICAL HISTORY Hx Appendectomy: Yes Hx Cholecystectomy: Yes Hx Coronary Stent: Yes (X4 7 YEARS AGO) - ANESTHESIA Hx Anesthesia: Yes Hx Anesthesia Reactions: No Hx Malignant Hyperthermia: No Meds Allergies/Adverse Reactions: Allergies Allergy/AdvReac Type Severity Reaction Status Date / Time influenza virus vaccine, Allergy Intermediate RASH Verified 10/09/17 09:56 specific cortisone Allergy RASH Verified 10/09/17 09:56 Iodinated Contrast- Oral and Allergy RASH Verified 10/09/17 09:56 IV Dye Results - Vital Signs Recent Vital Signs: Last Vital Signs Temp 98.7 F 10/09/17 14:00 Pulse 82 10/09/17 14:00 Resp 16 10/09/17 14:00 BP 136/65 10/09/17 14:00 Pulse Ox 98 10/09/17 14:00 - Labs Result Diagrams: 10/09/17 10:28 10/09/17 10:28 Labs: Laboratory Results - last 24 hr 10/09/17 10/09/17 10/09/17 10:28 10:28 10:56 WBC 7.7 RBC 4.06 Hgb 12.8 Hct 38.6 MCV 95.0 D MCH 31.5 H MCHC 33.1 RDW 14.6 H Plt Count 291 MPV 8.7 Neut % (Auto) 79.5 H Lymph % (Auto) 11.3 L [place] % (Auto) 6.9 Eos % (Auto) 1.5 Baso % (Auto) 0.8 Neut # 6.1 Lymph # 0.9 L [place] # 0.5 Eos # 0.1 Baso # 0.1 Sodium 138 Potassium 4.2 Chloride 104 Carbon Dioxide 24 Anion Gap 14 BUN 15 Creatinine 0.7 Est GFR ( Amer) > 60 Est GFR (Non-Af Amer) > 60 Random Glucose 123 H Calcium 8.8 Total Bilirubin 0.7 AST 45 H ALT 56 H Alkaline Phosphatase 168 H Total Creatine Kinase 46 CK-MB (Mass) 0.84 Troponin I < 0.0120 Total Protein 7.7 Albumin 4.0 Globulin 3.6 Albumin/Globulin Ratio 1.1 Urine Color Yellow Urine Clarity Clear Urine pH 5.0 Ur Specific [place] 1.016 Urine Protein Negative Urine Glucose (UA) Normal Urine Ketones Negative Urine Blood 1+ H Urine Nitrate Negative Urine Bilirubin Negative Urine Urobilinogen Normal Ur Leukocyte Esterase 1+ H Urine WBC (Auto) 10 H Urine RBC (Auto) 6 H Ur Squamous Epith Cells 3 Urine Bacteria Rare Assessment & Plan (1) Fall Assessment and Plan: Patient had a mechanical fall which she stated some bruising to her left periorbital area, CT of the head and sinus area are negative please see EMR for full report. Have held any VTE and her home aspirin for now. Will also keep on fall precuations, have ordered for PT/OT, carotid dopper as well. Patient admitted to tele/obs Follow up morning cbc, cmp, mag, phos, CPK, TSH/free T4, Lipid panel, Hbg a1c. Tylenol for pain as needed. Status: Acute (2) UTI (urinary tract infection) Assessment and Plan: started Rocephin 1 gram daily IVPB, follow up urine culture. Status: Acute (3) Chest pain Assessment and Plan: monitor on tele, yoshi panels q6h x3, first one is negative. Status: Acute Priority: Medium (4) Essential (primary) hypertension Assessment and Plan: Home Cozaar 25mg Status: Chronic Priority: Medium (5) Hypothyroid Assessment and Plan: home synthroid 25mcg daily Status: Chronic Priority: Medium (6) Prophylactic measure Assessment and Plan: Pepcid 20mg bid, hold VTE due to head trauma, hold Aspirin for the same reason. Zofran 4mg q6h prn for nausea Status: Acute
[2017-10-09] MEDS ORDERED: cefTRIAXone IV 1 gm in Dextros 50 ML IVPB SCH ×2 (16:00→17:00)
[2017-10-09 20:58] VITALS: RESP 20
[2017-10-10] MEDS ORDERED: Levothyroxine 25 MCG TAB PO SCH (06:30)
[2017-10-10 07:41] LABS: BASO % 0.7 % (0.0-2.0); EOS # 0.2 K/uL (0.0-0.7); EOS % 4.1 % (0.0-4.0); LYMPH # 1.2 K/uL (1.0-4.3); LYMPH % 21.6 % (20.0-40.0); MEAN CELL VOLUME 94.4 fL (81.0-99.0); MEAN CORPUSCULAR HEMOGLOBIN 31.7 pg (27.0-31.0); MEAN CORPUSCULAR HGB CONC 33.6 g/dL (33.0-37.0); MEAN PLATELET VOLUME 9.1 fL (7.2-11.7); MONO # 0.5 K/uL (0.0-0.8); MONO % 9.2 % (0.0-10.0); RED CELL DISTRIBUTION WIDTH 14.6 % (11.5-14.5); WHITE BLOOD COUNT 5.8 K/uL (4.8-10.8)
[2017-10-10 08:25] LABS: THYROID STIMULATING HORMONE 3.64 mIU/L (0.46-4.68)
[2017-10-10 08:28] LABS: MAGNESIUM 1.8 mg/dL (1.6-2.3); PHOSPHOROUS 3.8 mg/dL (2.5-4.5)
[2017-10-10 08:31] VITALS: BP 128/75; TEMP 97.1; O2SAT 98
[2017-10-10 12:38] VITALS: PULSE 95
--- NOTE | 2017-10-10 13:21 | CP.PCM.DIS ---
Provider - Provider Date of Admission: 10/09/17 13:54 Attending physician: Leonel Jarvis Jr, MD Consults: None Time Spent in preparation of Discharge (in minutes): 45 Hospital Course - Lab Results Lab Results: Micro Results 10/09/17 16:20 Urine,Clean Catch Urine Culture - Final > 100,000 CFU/ML. MULTIPLE SPECIES. SUGGEST REPEAT SPECIMEM. Most Recent Lab Values WBC 5.8 K/uL (4.8-10.8) 10/10/17 07:09 RBC 3.81 Mil/uL (3.80-5.20) 10/10/17 07:09 Hgb 12.1 g/dL (11.0-16.0) 10/10/17 07:09 Hct 36.0 % (34.0-47.0) 10/10/17 07:09 MCV 94.4 fL (81.0-99.0) 10/10/17 07:09 MCH 31.7 pg (27.0-31.0) H 10/10/17 07:09 MCHC 33.6 g/dL (33.0-37.0) 10/10/17 07:09 RDW 14.6 % (11.5-14.5) H 10/10/17 07:09 Plt Count 278 K/uL (130-400) 10/10/17 07:09 MPV 9.1 fL (7.2-11.7) 10/10/17 07:09 Neut % (Auto) 64.4 % (50.0-75.0) 10/10/17 07:09 Lymph % (Auto) 21.6 % (20.0-40.0) 10/10/17 07:09 [place] % (Auto) 9.2 % (0.0-10.0) 10/10/17 07:09 Eos % (Auto) 4.1 % (0.0-4.0) H 10/10/17 07:09 Baso % (Auto) 0.7 % (0.0-2.0) 10/10/17 07:09 Neut # 3.7 K/uL (1.8-7.0) 10/10/17 07:09 Lymph # 1.2 K/uL (1.0-4.3) 10/10/17 07:09 [place] # 0.5 K/uL (0.0-0.8) 10/10/17 07:09 Eos # 0.2 K/uL (0.0-0.7) 10/10/17 07:09 Baso # 0.0 K/uL (0.0-0.2) 10/10/17 07:09 Sodium 138 mmol/L (132-148) 10/09/17 10:28 Potassium 4.2 mmol/L (3.6-5.2) 10/09/17 10:28 Chloride 104 mmol/L (98-107) 10/09/17 10:28 Carbon Dioxide 24 mmol/L (22-30) 10/09/17 10:28 Anion Gap 14 (10-20) 10/09/17 10:28 BUN 15 mg/dL (7-17) 10/09/17 10:28 Creatinine 0.7 mg/dL (0.7-1.2) 10/09/17 10:28 Est GFR ( Amer) > 60 10/09/17 10:28 Est GFR (Non-Af Amer) > 60 10/09/17 10:28 POC Glucose (mg/dL) 72 mg/dL (65-110) 10/10/17 06:53 Random Glucose 123 mg/dL (65-105) H 10/09/17 10:28 Calcium 8.8 mg/dl (8.6-10.4) 10/09/17 10:28 Phosphorus 3.8 mg/dL (2.5-4.5) 10/10/17 07:09 Magnesium 1.8 mg/dL (1.6-2.3) 10/10/17 07:09 Total Bilirubin 0.7 mg/dL (0.2-1.3) 10/09/17 10:28 AST 45 U/L (14-36) H 10/09/17 10:28 ALT 56 U/L (9-52) H 10/09/17 10:28 Alkaline Phosphatase 168 U/L (38-126) H 10/09/17 10:28 Total Creatine Kinase 37 U/L (30-135) 10/10/17 07:09 CK-MB (Mass) 0.74 ng/mL (0.0-3.38) 10/10/17 00:13 Troponin I < 0.0120 ng/mL (0.00-0.120) 10/10/17 00:13 Total Protein 7.7 g/dL (6.3-8.3) 10/09/17 10:28 Albumin 4.0 g/dL (3.5-5.0) 10/09/17 10:28 Globulin 3.6 gm/dL (2.2-3.9) 10/09/17 10:28 Albumin/Globulin Ratio 1.1 (1.0-2.1) 10/09/17 10:28 Triglycerides 91 mg/dL (0-149) 10/10/17 07:09 Cholesterol 134 mg/dL (0-199) 10/10/17 07:09 LDL Cholesterol Direct 78 mg/dL (0-129) 10/10/17 07:09 HDL Cholesterol 38 mg/dL (30-70) 10/10/17 07:09 Free T4 0.97 ng/dL (0.78-2.19) 10/10/17 07:09 TSH 3rd Generation 3.64 mIU/L (0.46-4.68) 10/10/17 07:09 Urine Color Yellow (YELLOW) 10/09/17 10:56 Urine Clarity Clear (Clear) 10/09/17 10:56 Urine pH 5.0 (5.0-8.0) 10/09/17 10:56 Ur Specific [place] 1.016 (1.003-1.030) 10/09/17 10:56 Urine Protein Negative mg/dL (NEGATIVE) 10/09/17 10:56 Urine Glucose (UA) Normal mg/dL (Normal) 10/09/17 10:56 Urine Ketones Negative mg/dL (NEGATIVE) 10/09/17 10:56 Urine Blood 1+ (NEGATIVE) H 10/09/17 10:56 Urine Nitrate Negative (NEGATIVE) 10/09/17 10:56 Urine Bilirubin Negative (NEGATIVE) 10/09/17 10:56 Urine Urobilinogen Normal mg/dL (0.2-1.0) 10/09/17 10:56 Ur Leukocyte Esterase 1+ Alon/uL (Negative) H 10/09/17 10:56 Urine WBC (Auto) 10 /hpf (0-5) H 10/09/17 10:56 Urine RBC (Auto) 6 /hpf (0-3) H 10/09/17 10:56 Ur Squamous Epith Cells 3 /hpf (0-5) 10/09/17 10:56 Urine Bacteria Rare (<OCC) 10/09/17 10:56 Hepatitis A IgM Ab Negative (NEGATIVE) 10/10/17 07:09 Hep Bs Antigen Negative (NEGATIVE) 10/10/17 07:09 Hep B Core IgM Ab Negative (NEGATIVE) 10/10/17 07:09 Hepatitis C Antibody Negative (NEGATIVE) 10/10/17 07:09 - Hospital Course Hospital Course: Patient is a 77 year old female with a history of HTN, hypothyroidism, hyperlipidemia and H. 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 She also says that she has felt light headed as if she was about to pass out last night and this morning and that is why she came to the ED. She says that she occastional shortness of breath and chest tightness but not recently. She also says she was having some blurry vision it seemed that started last night but has not worsened. She currently denies any changes in hearing, confusion, fever , chills, diarrhea, coughing, chest tightness, pain when inhaling, but does report some dysuria, burning when she urinates for the past few days, depression , anxiety, joint pain, or muscle weakness. She recently finished an antibiotic treatment course for H. Pylori. PMH: see above PSH: hysterectomy, cholecystectomy, appendindectomy FH: Brother from heart disease in his 70s SH: Lives alone, former smoker quit some time ago, denies etoh, or illicit drug use. The patient had a CT scan done which did not show any fractures; showed mild swelling The patient is stable for d/c as per Dr. Jarvis She does not need any medications upon discharge Discharge Exam - Eye Exam Eye Exam: EOMI. absent: Normal appearance (patient has large bruise around left eye orbit, no changes in vision no eye pain) - ENT Exam ENT Exam: Mucous Membranes Moist - Neck Exam Neck exam: Full Rom - Respiratory Exam Respiratory Exam: Clear to PA & Lateral - Cardiovascular Exam Cardiovascular Exam: REGULAR RHYTHM - GI/Abdominal Exam GI & Abdominal Exam: Normal Bowel Sounds - Extremities Exam Extremities exam: full ROM - Back Exam Back exam: absent: CVA tenderness (L), CVA tenderness (R) - Neurological Exam Neurological exam: Alert, CN II-XII Intact, Normal Gait, Oriented x3, Reflexes Normal - Psychiatric Exam Psychiatric exam: Normal Affect, Normal Mood - Skin Skin Exam: Warm Discharge Plan - Follow Up Plan Condition: FAIR Disposition: HOME/ ROUTINE Patient education suggested?: Yes Instructions: Urinary Tract Infection in Women (DC), Urinary Tract Infection in Men (DC), Dysuria (GEN)
--- NOTE | 2017-10-12 09:03 | CARD ---
APPROVED REPORT EKG Measurement Heart [id number] <Conclusion> Sinus rhythm with 1st degree AV block Otherwise normal ECG
== END 2017-10-10 14:20 | disposition home or self-care (01) ==
LOC: C.ER 09:27 → C.9E 13:54 → C.6T 14:46
PROVIDERS: ADMIT Internal Medicine; ATTEND Internal Medicine
DX: S06.0X0A Concussion without loss of consciousness, initial encounter (principal); N39.0 Urinary tract infection, site not specified; E03.9 Hypothyroidism, unspecified; E78.00 Pure hypercholesterolemia, unspecified; E78.5 Hyperlipidemia, unspecified; F32.9 Major depressive disorder, single episode, unspecified; F41.9 Anxiety disorder, unspecified; I10 Essential (primary) hypertension; I25.10 Atherosclerotic heart disease of native coronary artery without angina pectoris; J43.9 Emphysema, unspecified; W01.0XXA Fall on same level from slipping, tripping and stumbling without subsequent striking against object, initial encounter; Z87.891 Personal history of nicotine dependence; Z90.49 Acquired absence of other specified parts of digestive tract; Z90.710 Acquired absence of both cervix and uterus; Z95.5 Presence of coronary angioplasty implant and graft
CPT/HCPCS: 36415; 70450; 70486; 71101; 80053; 80061; 80074; 81001; 82550; 82553; 82948; 83036; 83735; 84100; 84439; 84443; 84484; 85025; 87086; 97116; 97163; 99285; G0378; G8978; G8979; J0696

== ENCOUNTER 2018-04-06 09:40 | Emergency (ER) | payer MEDICARE, OTHER ==
[2018-04-06 09:40] VITALS: BMI 21.7
--- NOTE | 2018-04-06 12:02 | C.PDOC ---
History Of Present Illness Tripped and fell at home, injuring left lateral chest wall. Denies head injury or LOC. - HPI Time Seen by Provider: 04/06/18 10:32 Chief Complaint (Nursing): Rib Injury History Per: Patient Injury Occurred (Timing): Days Ago: (3) Description Of Injury (Context): Tripped at home and fell Location Of Injury: Left: Chest Severity: Moderate Additional History Per: Prior Records - Fall Fall:Prior To Injury: Tripped Past Medical History Reviewed: Historical Data, Nursing Documentation, Vital Signs Vital Signs: Last Vital Signs Temp 98 F 04/06/18 09:55 Pulse 76 04/06/18 09:55 Resp 18 04/06/18 09:55 BP 148/71 04/06/18 09:55 Pulse Ox 97 04/06/18 09:55 - Medical History PMH: Anxiety, CAD, COPD (Emphysema,), Depression, Diverticulitis, Emphysema, HTN , Hypercholesterolemia, Hypothyroidism Surgical History: Appendectomy, Cholecystectomy, Coronary Stent (X4 7 YEARS AGO) - [facility] Procedures EXCISION OF LARGE INTESTINE, ENDO, DIAGN (07/28/17) EXCISION OF SMALL INTESTINE, ENDO, DIAGN (07/28/17) RESECTION OF BILATERAL FALLOPIAN TUBES, OPEN APPROACH (01/09/17) RESECTION OF BILATERAL OVARIES, OPEN APPROACH (01/09/17) RESECTION OF CERVIX, OPEN APPROACH (01/09/17) RESECTION OF UTERUS, OPEN APPROACH (01/09/17) Family History: States: Unknown Family Hx - Social History Hx Tobacco Use: No Hx Alcohol Use: Yes (Ex Drinker) Hx Substance Use: No - Immunization History Hx Tetanus Toxoid Vaccination: No Hx Influenza Vaccination: No Hx Pneumococcal Vaccination: No Review Of Systems Except As Marked, All Systems Reviewed And Found Negative. Constitutional: Negative for: Fever, Weakness Respiratory: Negative for: Cough, Shortness of Breath, Hemoptysis Gastrointestinal: Negative for: Vomiting, Abdominal Pain Musculoskeletal: Negative for: Neck Pain, Leg Pain Neurological: Negative for: Weakness, Numbness, Headache Physical Exam - Physical Exam Appears: Non-toxic, No Acute Distress Skin: Normal Color, Warm, Dry Head: Atraumatic, Normacephalic Eye(s): bilateral: PERRL, EOMI Neck: Normal ROM, Supple Chest: Symmetrical, No Deformity, Tenderness (left chest wall), No Subcutaneous Emphysema Cardiovascular: Rhythm Regular Respiratory: Normal Breath Sounds, No Accessory Muscle Use Gastrointestinal/Abdominal: Soft, No Tenderness Back: No CVA Tenderness, No Vertebral Tenderness Extremity: Normal ROM, No Pedal Edema, No Calf Tenderness, No Deformity Neurological/Psych: Oriented x3, Normal Motor, Normal Sensation ED Course And Treatment O2 Sat by Pulse Oximetry: 97 Pulse Ox Interpretation: Normal - Radiology Nexus Criteria: Negative - Other Rad Left rib series X-Ray: Interpreted by Me, Viewed By Me Interpretation: No acute findings. Disposition Counseled Patient/Family Regarding: Studies Performed, Diagnosis, Need For Followup, Rx Given - Disposition Referrals: Donell Morales MD [Staff Provider] - Disposition: HOME/ ROUTINE Disposition Time: 12:03 Condition: STABLE Additional Instructions: Follow up with your doctor this week. Return to the ER if you develop shortness of breath, fever, coughing, worsening of symptoms or if you have any other concerns. Prescriptions: traMADol/Acetaminophen [Ultracet 325 MG-37.5 MG] 1 tab PO Q4 PRN #30 tab PRN Reason: Pain Instructions: Bruised Rib (DC) - Clinical Impression Clinical Impression: Contusion of rib on left side
[2018-04-06 12:35] VITALS: BP 139/69; PULSE 79; RESP 16; TEMP 97.3; O2SAT 98
--- NOTE | 2018-04-06 12:38 | RAD ---
PROCEDURE: Radiographs of the Chest and Left Ribs. HISTORY: Pain s/p fall 3 days ago COMPARISON: None available. TECHNIQUE: Frontal radiograph of the chest and multiple oblique radiographs of the left ribs were obtained. FINDINGS: LEFT RIBS: No acute fracture or focal lesion visualized. LUNGS: There is chronic scarring in the right lower lobe and right pleural thickening. The left lung is well inflated and clear. PLEURA: No pneumothorax or pleural fluid. CARDIOVASCULAR: Normal sized heart. No pulmonary vascular congestion. OTHER FINDINGS: None. IMPRESSION: No acute findings. No acute left rib fracture, pleural effusion or pneumothorax.
== END 2018-04-06 12:36 | disposition home or self-care (01) ==
LOC: C.ER 09:40
DX: S20.212A Contusion of left front wall of thorax, initial encounter (principal); W01.0XXA Fall on same level from slipping, tripping and stumbling without subsequent striking against object, initial encounter; I10 Essential (primary) hypertension; E78.00 Pure hypercholesterolemia, unspecified; J44.9 Chronic obstructive pulmonary disease, unspecified; E03.9 Hypothyroidism, unspecified

== ENCOUNTER 2018-09-24 11:42 | Inpatient (IN) | payer MEDICARE, OTHER ==
[2018-09-24 11:42] VITALS: BMI 21.7
[2018-09-24] MEDS ORDERED: Sodium Chloride 0.9% 500 ML IV ONE ×2 (12:40→15:11)
--- NOTE | 2018-09-24 12:47 | C.PDOC ---
History Of Present Illness Patient presents to ED c/o gross hematuria since yesterday, associated with suprapubic pressure/burning. She denies fever, nausea/vomiting, diarrhea, known vagInal bleeding/discharge. 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 Patient does not have a urologist. Time Seen by Provider: 09/24/18 12:09 Chief Complaint (Nursing): Female Genitourinary History Per: Patient History/Exam Limitations: no limitations Onset/Duration Of Symptoms: Days (2) Current Symptoms Are (Timing): Still Present Severity: Mild Quality Of Discomfort: Burning, Pressure, "Pain" Associated Symptoms: Urinary Symptoms Past Medical History Reviewed: Historical Data, Nursing Documentation, Vital Signs Vital Signs: Last Vital Signs Temp 98 F 09/24/18 11:45 Pulse 96 H 09/24/18 11:45 Resp 19 09/24/18 11:45 BP 169/80 H 09/24/18 11:45 Pulse Ox 100 09/24/18 11:45 - Medical History PMH: Anxiety, CAD, COPD, Depression, Diverticulitis, HTN, Hypercholesterolemia, Hypothyroidism Surgical History: Appendectomy, Cholecystectomy, Coronary Stent (X4) Other Surgeries: hysterectomy abd B/L salpingoophorectomy - [facility] Procedures EXCISION OF LARGE INTESTINE, ENDO, DIAGN (07/28/17) EXCISION OF SMALL INTESTINE, ENDO, DIAGN (07/28/17) RESECTION OF BILATERAL FALLOPIAN TUBES, OPEN APPROACH (01/09/17) RESECTION OF BILATERAL OVARIES, OPEN APPROACH (01/09/17) RESECTION OF CERVIX, OPEN APPROACH (01/09/17) RESECTION OF UTERUS, OPEN APPROACH (01/09/17) Family History: States: No Known Family Hx - Social History Hx Tobacco Use: No Hx Alcohol Use: No Hx Substance Use: No - Immunization History Hx Tetanus Toxoid Vaccination: No Hx Influenza Vaccination: No Hx Pneumococcal Vaccination: No Review Of Systems Constitutional: Negative for: Fever, Chills Cardiovascular: Negative for: Chest Pain Respiratory: Negative for: Shortness of Breath Gastrointestinal: Negative for: Nausea, Vomiting, Abdominal Pain, Diarrhea Genitourinary: Positive for: Dysuria, Hematuria, Pelvic Pain Skin: Negative for: Rash Physical Exam - Physical Exam Appears: Well, Non-toxic, No Acute Distress Skin: Warm, Dry Head: Atraumatic, Normacephalic Oral Mucosa: Moist Cardiovascular: Rhythm Regular, No Murmur Respiratory: Normal Breath Sounds, No Rales, No Rhonchi, No Wheezing Gastrointestinal/Abdominal: Bowel Sounds, Soft, Tenderness (mild suprapubic TTP, surgical scar in horizontal orientation suprapubic area), No Distention, No Guarding, No Rebound Back: No CVA Tenderness Neurological/Psych: Oriented x3 ED Course And Treatment - Laboratory Results Result Diagrams: 09/24/18 12:45 09/24/18 12:45 O2 Sat by Pulse Oximetry: 100 (RA) Pulse Ox Interpretation: Normal - CT Scan/US CT ABD/Pelvis Other Rad Studies (CT/US): Read By Radiologist CT/US Interpretation: FINDINGS: LOWER THORAX: Reticular opacities at the peripheral portion of the lung bases are again noted. LIVER: No evidence of significant interval change in the liver since the previous exam. GALLBLADDER AND BILE DUCTS: The gallbladder is not visualized. PANCREAS: Unremarkable. No gross lesion or ductal dilatation. SPLEEN: Unremarkable. ADRENALS: Unremarkable. No mass. KIDNEYS AND URETERS: There is mild the right hydronephrosis and hydroureter without evidence of obstructing stone. There is no evidence of left hydronephrosis. There is punctate calcification in both kid neys may represent nonobstructing renal calculi or vascular calcification. VASCULATURE: Unremarkable. No aortic aneurysm. No aortic atherosclerotic calcification or mural plaque present. BOWEL: Colonic diverticulosis are again noted without evidence of diverticulitis. No obstruction. No gross mural thickening. APPENDIX: No evidence of appendicitis. PERITONEUM: Unremarkable. No free fluid. No free air. LYMPH NODES: Unremarkable. No enlarged lymph nodes. BLADDER: Unremarkable. REPRODUCTIVE: The uterus and adnexa are not visualized. BONES: No acute fracture. OTHER FINDINGS: None. IMPRESSION: Mild the right hydronephrosis and hydroureter without evidence of obstructing stone. If clinically warranted further assessment with postcontrast images may be obtained. Punctate less than 2 millimeter calcification at the midpole of the left kidney may represent nonobstructing renal calculus versus vascular calcification. Otherwise no evidence of acute pathology in the abdomen and pelvis. Progress Note: Plan: CT ABD/Pelvis. Blood sent. Urine culture. Morphine. Pyridium. Rocepin. Progress/Update: 2:58pm : Spoke with Dr. Morales regarding patients case. 3:10pm : Spoke with Dr. Waleska Balderas regarding patients case. 3:23pm : Spoke with Dr. Quick regarding patients case. CT scan abd/pelvis: reviewed. Patient given 500ml IV bolus. Disposition - Disposition - Scribe Statement The provider has reviewed the documentation as recorded by the Scribe (Candace Campbell) Provider Attestation: All medical record entries made by the Scribe were at my direction and personally dictated by me. I have reviewed the chart and agree that the record accurately reflects my personal performance of the history, physical exam, medical decision making, and the department course for this patient. I have also personally directed, reviewed, and agree with the discharge instructions and disposition.
[2018-09-24 12:52] LABS: BASO % 0.6 % (0.0-2.0); EOS % 0.4 % (0.0-4.0); HEMOGLOBIN 13.4 g/dL (11.0-16.0); LYMPH # 0.9 K/uL (1.0-4.3); MEAN CELL VOLUME 96.6 fL (81.0-99.0); MEAN CORPUSCULAR HGB CONC 34.2 g/dL (33.0-37.0); MEAN PLATELET VOLUME 9.2 fL (7.2-11.7); MONO # 0.4 K/uL (0.0-0.8); MONO % 5.5 % (0.0-10.0); NEUT # 5.6 K/uL (1.8-7.0); NEUT % 80.5 % (50.0-75.0); RBC 4.07 Mil/uL (3.80-5.20); RED CELL DISTRIBUTION WIDTH 13.1 % (11.5-14.5); WHITE BLOOD COUNT 6.9 K/uL (4.8-10.8)
[2018-09-24 12:58] LABS: URINE BILIRUBIN NEGATIVE (NEGATIVE); URINE BLOOD 2+ (NEGATIVE); URINE CLARITY Hazy (Clear); URINE COLOR Red (YELLOW); URINE GLUCOSE (UA) NORMAL (Normal); URINE PROTEIN 2+ mg/dL (NEGATIVE); URINE UROBILINOGEN NORMAL mg/dL (0.2-1.0)
[2018-09-24 12:59] LABS: PROTHROMBIN TIME 11.3 SECONDS (9.7-12.2)
[2018-09-24 13:00] LABS: URINE LEUKOCYTE ESTERASE TRACE Leu/uL (Negative)
[2018-09-24 13:00] LABS: ALB/GLOB RATIO 1.2 (1.0-2.1); ALBUMIN 4.3 g/dL (3.5-5.0); ALT/SGPT 19 U/L (9-52); AST/SGOT 26 U/L (14-36); BLOOD UREA NITROGEN 23 mg/dL (7-17); CALCIUM 10.1 mg/dl (8.6-10.4); GFR NON-AFRICAN AMERICAN > 60
--- NOTE | 2018-09-24 14:51 | CT ---
Date of service: 09/24/2018 PROCEDURE: CT Abdomen and Pelvis without intravenous contrast HISTORY: GROSS HEMATURIA, H/O OVARIAN MASS COMPARISON: Comparison is made to the previous study dated 07/28/2017 TECHNIQUE: Axial and reformatted coronal and sagittal CT images of the abdomen and pelvis were obtained without IV or oral contrast administration.. Contrast dose: 0 Radiation dose: Total exam DLP = 466.59 mGy-cm. This CT exam was performed using one or more of the following dose reduction techniques: Automated exposure control, adjustment of the mA and/or kV according to patient size, and/or use of iterative reconstruction technique. FINDINGS: LOWER THORAX: Reticular opacities at the peripheral portion of the lung bases are again noted. LIVER: No evidence of significant interval change in the liver since the previous exam. GALLBLADDER AND BILE DUCTS: The gallbladder is not visualized. PANCREAS: Unremarkable. No gross lesion or ductal dilatation. SPLEEN: Unremarkable. ADRENALS: Unremarkable. No mass. KIDNEYS AND URETERS: There is mild the right hydronephrosis and hydroureter without evidence of obstructing stone. There is no evidence of left hydronephrosis. There is punctate calcification in both kidneys may represent nonobstructing renal calculi or vascular calcification. VASCULATURE: Unremarkable. No aortic aneurysm. No aortic atherosclerotic calcification or mural plaque present. BOWEL: Colonic diverticulosis are again noted without evidence of diverticulitis. No obstruction. No gross mural thickening. APPENDIX: No evidence of appendicitis. PERITONEUM: Unremarkable. No free fluid. No free air. LYMPH NODES: Unremarkable. No enlarged lymph nodes. BLADDER: Unremarkable. REPRODUCTIVE: The uterus and adnexa are not visualized. BONES: No acute fracture. OTHER FINDINGS: None. IMPRESSION: Mild the right hydronephrosis and hydroureter without evidence of obstructing stone. If clinically warranted further assessment with postcontrast images may be obtained. Punctate less than 2 millimeter calcification at the midpole of the left kidney may represent nonobstructing renal calculus versus vascular calcification. Otherwise no evidence of acute pathology in the abdomen and pelvis.
[2018-09-24] MEDS ORDERED: cefTRIAXone IV 1 gm in Dextros 50 ML IV ONE (15:15)
[2018-09-24] MEDS ORDERED: Sodium Chloride 0.9% 1,000 ML ONE (15:25)
[2018-09-24] MEDS: Sodium Chloride 0.9% 1,000 ML IV SCH (20:09)
--- NOTE | 2018-09-24 21:58 | CP.PCM.HP ---
Past Patient History - Past Medical History & Family History Past Medical History?: Yes - Past Social History Smoking Status: Former Smoker - CARDIAC Hx Hypercholesterolemia: Yes Hx Hypertension: Yes - PULMONARY Hx Chronic Obstructive Pulmonary Disease (COPD): Yes - NEUROLOGICAL Hx Neurological Disorder: No - HEENT Hx HEENT Problems: Yes Hx Cataracts: Yes (BILAT IOL) - RENAL Hx Chronic Kidney Disease: No - ENDOCRINE/METABOLIC Hx Hypothyroidism: Yes - HEMATOLOGICAL/ONCOLOGICAL Hx Blood Disorders: No - INTEGUMENTARY Hx Dermatological Problems: No - MUSCULOSKELETAL/RHEUMATOLOGICAL Hx Falls: No - GASTROINTESTINAL Hx Diverticulitis: Yes - GENITOURINARY/GYNECOLOGICAL Hx Genitourinary Disorders: Yes (FIBROID UTERUS) - PSYCHIATRIC Hx Anxiety: Yes Hx Depression: Yes Hx Substance Use: No - SURGICAL HISTORY Hx Appendectomy: Yes Hx Cholecystectomy: Yes Hx Coronary Stent: Yes (X4) - ANESTHESIA Hx Anesthesia: Yes Hx Anesthesia Reactions: No Hx Malignant Hyperthermia: No Meds Allergies/Adverse Reactions: Allergies Allergy/AdvReac Type Severity Reaction Status Date / Time influenza virus vaccine, Allergy Intermediate RASH Verified 09/24/18 11:49 specific cortisone Allergy RASH Verified 09/24/18 11:49 Iodinated Contrast- Oral and Allergy RASH Verified 09/24/18 11:49 IV Dye Results - Vital Signs Recent Vital Signs: Last Vital Signs Temp 98.4 F 09/24/18 19:21 Pulse 70 09/24/18 19:21 Resp 20 09/24/18 19:21 BP 134/74 09/24/18 19:21 Pulse Ox 97 09/24/18 19:21 - Labs Result Diagrams: 09/24/18 12:45 09/24/18 12:45 Labs: Laboratory Results - last 24 hr 09/24/18 09/24/18 09/24/18 12:45 12:45 12:45 WBC 6.9 RBC 4.07 Hgb 13.4 Hct 39.3 MCV 96.6 D MCH 33.0 H MCHC 34.2 RDW 13.1 Plt Count 246 MPV 9.2 Neut % (Auto) 80.5 H Lymph % (Auto) 13.0 L [place] % (Auto) 5.5 Eos % (Auto) 0.4 Baso % (Auto) 0.6 Neut # (Auto) 5.6 Lymph # (Auto) 0.9 L [place] # (Auto) 0.4 Eos # (Auto) 0.0 Baso # (Auto) 0.0 PT 11.3 INR 1.0 APTT 36 H Sodium 140 Potassium 4.3 Chloride 102 Carbon Dioxide 28 Anion Gap 14 BUN 23 H Creatinine 0.7 Est GFR ( Amer) > 60 Est GFR (Non-Af Amer) > 60 Random Glucose 108 H Calcium 10.1 Total Bilirubin 0.5 AST 26 ALT 19 Alkaline Phosphatase 168 H Total Protein 8.0 Albumin 4.3 Globulin 3.7 Albumin/Globulin Ratio 1.2 Urine Color Urine Clarity Urine pH Ur Specific [place] Urine Protein Urine Glucose (UA) Urine Ketones Urine Blood Urine Nitrate Urine Bilirubin Urine Urobilinogen Ur Leukocyte Esterase Urine WBC (Auto) Urine RBC (Auto) 09/24/18 12:48 WBC RBC Hgb Hct MCV MCH MCHC RDW Plt Count MPV Neut % (Auto) Lymph % (Auto) [place] % (Auto) Eos % (Auto) Baso % (Auto) Neut # (Auto) Lymph # (Auto) [place] # (Auto) Eos # (Auto) Baso # (Auto) PT INR APTT Sodium Potassium Chloride Carbon Dioxide Anion Gap BUN Creatinine Est GFR ( Amer) Est GFR (Non-Af Amer) Random Glucose Calcium Total Bilirubin AST ALT Alkaline Phosphatase Total Protein Albumin Globulin Albumin/Globulin Ratio Urine Color Red Urine Clarity Hazy Urine pH 6.0 Ur Specific [place] 1.014 Urine Protein 2+ H Urine Glucose (UA) Normal Urine Ketones Negative Urine Blood 2+ H Urine Nitrate Negative Urine Bilirubin Negative Urine Urobilinogen Normal Ur Leukocyte Esterase Trace H Urine WBC (Auto) 12 H Urine RBC (Auto) 3203 H
[2018-09-25] MEDS: Levothyroxine 25 MCG TAB PO SCH (05:47)
[2018-09-25] MEDS: Sodium Chloride 0.9% 1,000 ML IV SCH ×3 (08:08→22:04)
[2018-09-25] MEDS: Enoxaparin 40 mg Syringe SC SCH (09:35)
[2018-09-25] MEDS ORDERED: Ergocalciferol 50,000 Intl Units Cap PO SCH (10:00)
[2018-09-25 11:24] LABS: BASO % 0.5 % (0.0-2.0); EOS % 0.8 % (0.0-4.0); LYMPH # 0.9 K/uL (1.0-4.3); LYMPH % 15.1 % (20.0-40.0); MEAN CELL VOLUME 96.7 fL (81.0-99.0); MEAN CORPUSCULAR HEMOGLOBIN 32.7 pg (27.0-31.0); MEAN CORPUSCULAR HGB CONC 33.8 g/dL (33.0-37.0); MEAN PLATELET VOLUME 9.5 fL (7.2-11.7); MONO # 0.3 K/uL (0.0-0.8); MONO % 5.9 % (0.0-10.0); NEUT # 4.6 K/uL (1.8-7.0); NEUT % 77.7 % (50.0-75.0); NRBC % 0.1 % (0.0-2.0); RBC 3.49 Mil/uL (3.80-5.20); WHITE BLOOD COUNT 5.9 K/uL (4.8-10.8)
[2018-09-25 11:40] LABS: HEMOGLOBIN 11.4 g/dL (11.0-16.0)
--- NOTE | 2018-09-25 19:16 | CP.PCM.PN ---
Subjective - Subjective Subjective: dictated Objective - Vital Signs/Intake and Output Vital Signs (last 24 hours): Temp Pulse Resp BP Pulse Ox 97.8 F 64 20 147/77 98 09/25/18 16:00 09/25/18 16:00 09/25/18 16:00 09/25/18 16:00 09/25/18 16:00 Intake and Output: 09/25/18 09/26/18 18:59 06:59 Intake Total 640 Balance 640 - Medications Medications: Current Medications Acetaminophen (Tylenol 325mg Tab) 650 mg PO Q6 PRN PRN Reason: Pain, moderate (4-7) Enoxaparin Sodium (Lovenox) 40 mg SC DAILY [facility] Last Admin: 09/25/18 09:35 Dose: 40 mg Ergocalciferol (Drisdol 50,000 Intl Units Cap) 1 cap PO QWK [facility] Last Admin: 09/25/18 10:04 Dose: 1 cap Ceftriaxone Sodium 1 gm/ (Sodium Chloride) 100 mls @ 100 mls/hr IVPB DAILY [facility]; Protocol Last Admin: 09/25/18 10:44 Dose: 100 mls/hr Sodium Chloride (Sodium Chloride 0.9%) 1,000 mls @ 80 mls/hr IV .[id number] [facility] Last Admin: 09/25/18 08:08 Dose: 80 mls/hr Influenza Virus Vaccine (Fluzone Quad [id number]) 60 mcg IM .ONCE ONE Stop: 09/27/18 14:55 Levothyroxine Sodium (Synthroid) 25 mcg PO DAILY@0630 [facility] Last Admin: 09/25/18 05:47 Dose: 25 mcg Losartan Potassium (Cozaar) 25 mg PO DAILY [facility] Last Admin: 09/25/18 09:35 Dose: 25 mg Pneumococcal Polyvalent Vaccine (Pneumovax 23 Vaccine) 0.5 ml IM .ONCE ONE Stop: 09/27/18 10:01 Rosuvastatin Calcium (Crestor) 5 mg PO HS [facility] Last Admin: 09/24/18 21:18 Dose: 5 mg Ursodiol (Actigall) 300 mg PO DAILY [facility] Last Admin: 09/25/18 09:35 Dose: 300 mg - Labs Labs: 09/25/18 11:13 09/24/18 12:45 PT 11.3 SECONDS (9.7-12.2) 09/24/18 12:45 INR 1.0 09/24/18 12:45 APTT 36 SECONDS (21-34) H 09/24/18 12:45
[2018-09-25 19:42] LABS: BASO % 0.5 % (0.0-2.0); EOS # 0.1 K/uL (0.0-0.7); EOS % 1.6 % (0.0-4.0); HEMOGLOBIN 12.3 g/dL (11.0-16.0); LYMPH # 1.4 K/uL (1.0-4.3); LYMPH % 23.7 % (20.0-40.0); MEAN CORPUSCULAR HEMOGLOBIN 33.1 pg (27.0-31.0); MEAN CORPUSCULAR HGB CONC 34.1 g/dL (33.0-37.0); MEAN PLATELET VOLUME 9.3 fL (7.2-11.7); MONO # 0.5 K/uL (0.0-0.8); MONO % 7.5 % (0.0-10.0); NEUT % 66.7 % (50.0-75.0); NRBC % 0.1 % (0.0-2.0); RBC 3.72 Mil/uL (3.80-5.20); RED CELL DISTRIBUTION WIDTH 13.3 % (11.5-14.5)
--- NOTE | 2018-09-26 03:58 | PN ---
DATE: 09/25/2018 SUBJECTIVE: Her hematuria is getting better. She feels better. She is afebrile. She denies any abdominal pain, nausea, or vomiting. She is on antibiotic. She is waiting to be seen by Urology. PHYSICAL EXAMINATION: VITAL SIGNS: BP 127/70, pulse 64, respiratory rate 20, and temperature 98.3. LUNGS: Clear. CARDIOVASCULAR: S1, S2, regular. ABDOMEN: Soft. ASSESSMENT: 1. Hematuria, etiology pending. The patient is for cystoscopy on Thursday. 2. Hypertension. 3. Hyperlipidemia. 4. Anxiety. PLAN: OR on Thursday. Monitor the patient. Macario Quick MD
[2018-09-26] MEDS: Levothyroxine 25 MCG TAB PO SCH (05:32)
--- NOTE | 2018-09-26 06:54 | HP ---
CHIEF COMPLAINT: Hematuria. 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 The patient has not been followed up by any urologist. The patient is compliant with her diet, medication, and followup, and she came to emergency room at [facility] for two days' onset of hematuria which is bright red, blood mixed with urine along with history of dysuria. She denies any nausea or vomiting. She has generalized weakness, fever, chills, and rigors. She denies any polyuria, polydipsia, or polyphagia. She denies any sneezing, itchy eyes, or itchy nose. She denies any other abdominal pain. She denies having trauma. She denies any history of recent instrumentation, but she had prior stones in the kidney longtime ago. She denies any fever or chills. She denies any new joint pain or hip pain. She is anxious. PAST MEDICAL HISTORY: Anxiety, depression, diverticulitis, hyperlipidemia, hypothyroidism, and hypertension. PAST SURGICAL HISTORY: Coronary artery stents, cholecystectomy, and appendectomy. SOCIAL HISTORY: She is nonsmoker, nonEtOH user. CURRENT MEDICATIONS: She is on ursodiol, vitamin C, losartan, levofloxacin, Crestor, and Ecotrin. PHYSICAL EXAMINATION: GENERAL: An elderly female, in no acute distress. VITAL SIGNS: Blood pressure 147/77, pulse 64, respiratory rate 20, and temperature 97.8. SKIN: Senile turgor. No bruises. No purpura. No petechiae. HEENT: Atraumatic, normocephalic. Negative pallor. Negative jaundice. Extraocular movements are intact. NECK: Supple. No JVD. No lymph node. No thyromegaly. No carotid bruit. CHEST: Chest wall, bilaterally symmetrical expansion. LUNGS: Clear. No rale. No rhonchi. CARDIOVASCULAR SYSTEM: S1, S2 plus S3 positive. PMI in fifth intercostal space. ABDOMEN: Soft and nontender. Bowel sounds are positive. RECTAL: Deferred. PELVIC: Deferred. EXTREMITIES: No clubbing, cyanosis, or edema. CENTRAL NERVOUS SYSTEM: Awake, alert, and oriented x3. Cranial nerves II through XII are normal. Power 5/5 x4. Plantars are downgoing. ASSESSMENT: 1. Hematuria. Rule out nephrolithiasis. Rule out genitourinary tumors. Rule out cyst in the kidney. 2. Hypertension. 3. Chronic obstructive pulmonary disease. 4. Anxiety and depression. PLAN: Admit. Detail orders written. Seen and examined. Macario Quick MD
[2018-09-26] MEDS: Sodium Chloride 0.9% 1,000 ML IV SCH ×3 (08:13→21:43)
[2018-09-26 09:29] LABS: BASO % 0.7 % (0.0-2.0); EOS # 0.1 K/uL (0.0-0.7); EOS % 2.7 % (0.0-4.0); HEMOGLOBIN 12.1 g/dL (11.0-16.0); LYMPH % 18.7 % (20.0-40.0); MEAN CORPUSCULAR HEMOGLOBIN 33.3 pg (27.0-31.0); MEAN CORPUSCULAR HGB CONC 34.3 g/dL (33.0-37.0); MONO # 0.3 K/uL (0.0-0.8); MONO % 6.2 % (0.0-10.0); NEUT # 3.9 K/uL (1.8-7.0); NEUT % 71.7 % (50.0-75.0); RBC 3.64 Mil/uL (3.80-5.20); RED CELL DISTRIBUTION WIDTH 13.1 % (11.5-14.5); WHITE BLOOD COUNT 5.4 K/uL (4.8-10.8)
[2018-09-26] MEDS: Enoxaparin 40 mg Syringe SC SCH (09:57)
--- NOTE | 2018-09-26 22:45 | CP.PCM.PN ---
Subjective - Subjective Subjective: dictated Objective - Vital Signs/Intake and Output Vital Signs (last 24 hours): Temp Pulse Resp BP Pulse Ox 98.1 F 69 20 146/81 97 09/26/18 15:00 09/26/18 15:00 09/26/18 15:00 09/26/18 15:00 09/26/18 15:00 Intake and Output: 09/26/18 09/27/18 18:59 06:59 Intake Total 640 Balance 640 - Medications Medications: Current Medications Acetaminophen (Tylenol 325mg Tab) 650 mg PO Q6 PRN PRN Reason: Pain, moderate (4-7) Enoxaparin Sodium (Lovenox) 40 mg SC DAILY [facility] Last Admin: 09/26/18 09:57 Dose: 40 mg Ergocalciferol (Drisdol 50,000 Intl Units Cap) 1 cap PO QWK [facility] Last Admin: 09/25/18 10:04 Dose: 1 cap Ceftriaxone Sodium 1 gm/ (Sodium Chloride) 100 mls @ 100 mls/hr IVPB DAILY [facility]; Protocol Last Admin: 09/26/18 09:58 Dose: 100 mls/hr Sodium Chloride (Sodium Chloride 0.9%) 1,000 mls @ 80 mls/hr IV .[id number] [facility] Last Admin: 09/26/18 21:43 Dose: Not Given Influenza Virus Vaccine (Fluzone Quad [id number]) 60 mcg IM .ONCE ONE Stop: 09/27/18 14:55 Levothyroxine Sodium (Synthroid) 25 mcg PO DAILY@0630 [facility] Last Admin: 09/26/18 05:32 Dose: 25 mcg Losartan Potassium (Cozaar) 25 mg PO DAILY [facility] Last Admin: 09/26/18 09:57 Dose: 25 mg Pneumococcal Polyvalent Vaccine (Pneumovax 23 Vaccine) 0.5 ml IM .ONCE ONE Stop: 09/27/18 10:01 Rosuvastatin Calcium (Crestor) 5 mg PO HS [facility] Last Admin: 09/26/18 21:44 Dose: 5 mg Ursodiol (Actigall) 300 mg PO DAILY [facility] Last Admin: 09/26/18 09:58 Dose: 300 mg - Labs Labs: 09/26/18 09:19 09/24/18 12:45 PT 11.3 SECONDS (9.7-12.2) 09/24/18 12:45 INR 1.0 09/24/18 12:45 APTT 36 SECONDS (21-34) H 09/24/18 12:45
[2018-09-27] MEDS: Sodium Chloride 0.9% 1,000 ML IV SCH ×2 (01:59→11:00)
--- NOTE | 2018-09-27 02:40 | PN ---
DATE: 09/26/2018 SUBJECTIVE: Nahed Graves is for possible cystoscopy. She is afebrile. No shortness of breath. Blood pressure is coming down. PHYSICAL EXAMINATION: VITAL SIGNS: BP 146/81, pulse 65, respiratory rate 20, temperature 98.1. LUNGS: Clear. CARDIOVASCULAR SYSTEM: S1 and S2 are regular. ABDOMEN: Soft. ASSESSMENT: 1. Hematuria, etiology , is improving, pending cultures. 2. Hypertension. 3. Anxiety. PLAN: Antibiotics. Cystoscopy. Macario Quick MD
[2018-09-27] MEDS: Levothyroxine 25 MCG TAB PO SCH (06:44)
[2018-09-27] MEDS: Enoxaparin 40 mg Syringe SC SCH (09:57)
[2018-09-27] MEDS ORDERED: Pneumococcal 23-Valent Vaccine IM ONE (10:00)
[2018-09-27] MEDS ORDERED: Influenza Vaccine 60 MCG/0.5 ML SYR (3 yr & up) IM ONE (14:54)
--- NOTE | 2018-09-27 15:31 | PCM.URO ---
Urology Progress Note - Objective Lab Studies: Reviewed (hematuria now resolved needs work up // can be done in or out pt thanks for consult) Intake & Output: Intake & Output 09/26/18 09/27/18 09/27/18 18:59 06:59 18:59 Intake Total 640 890 760 Balance 640 890 760 Intake: Intake, IV Amount 640 640 640 Left Antecubital 640 640 640 Oral 250 120 Other: # Voids Urine, Voided 4 2 Vital Signs: Vital Signs - 24 hr 09/27/18 09/27/18 00:00 08:20 Temperature 97.5 F L 97.9 F Pulse Rate 67 77 Respiratory 20 20 Rate Blood Pressure 131/70 143/83 O2 Sat by Pulse 94 L 98 Oximetry
--- NOTE | 2018-09-27 23:14 | CP.PCM.PN ---
Subjective - Subjective Subjective: dictated Objective - Vital Signs/Intake and Output Vital Signs (last 24 hours): Temp Pulse Resp BP Pulse Ox 98.6 F 65 20 156/76 H 98 09/27/18 15:00 09/27/18 15:00 09/27/18 15:00 09/27/18 15:00 09/27/18 15:00 Intake and Output: 09/27/18 09/28/18 18:59 06:59 Intake Total 1640 Balance 1640 - Medications Medications: Current Medications Acetaminophen (Tylenol 325mg Tab) 650 mg PO Q6 PRN PRN Reason: Pain, moderate (4-7) Enoxaparin Sodium (Lovenox) 40 mg SC DAILY [facility] Last Admin: 09/27/18 09:57 Dose: 40 mg Ergocalciferol (Drisdol 50,000 Intl Units Cap) 1 cap PO QWK [facility] Last Admin: 09/25/18 10:04 Dose: 1 cap Ceftriaxone Sodium 1 gm/ (Sodium Chloride) 100 mls @ 100 mls/hr IVPB DAILY [facility]; Protocol Last Admin: 09/27/18 09:57 Dose: 100 mls/hr Levothyroxine Sodium (Synthroid) 25 mcg PO DAILY@0630 [facility] Last Admin: 09/27/18 06:44 Dose: 25 mcg Losartan Potassium (Cozaar) 25 mg PO DAILY [facility] Last Admin: 09/27/18 09:57 Dose: 25 mg Rosuvastatin Calcium (Crestor) 5 mg PO HS [facility] Last Admin: 09/27/18 21:55 Dose: 5 mg Ursodiol (Actigall) 300 mg PO DAILY [facility] Last Admin: 09/27/18 09:57 Dose: 300 mg - Labs Labs: 09/26/18 09:19 09/24/18 12:45 PT 11.3 SECONDS (9.7-12.2) 09/24/18 12:45 INR 1.0 09/24/18 12:45 APTT 36 SECONDS (21-34) H 09/24/18 12:45
--- NOTE | 2018-09-28 03:42 | PN ---
DATE: 09/27/2018 SUBJECTIVE: The patient is afebrile. Decreased . No shortness of breath. No chest pain. The patient is for evaluation by Urology. PHYSICAL EXAMINATION VITAL SIGNS: BP 156/73, pulse 65, respiratory rate 20, temperature 98.6. LUNGS: Clear. CARDIOVASCULAR SYSTEM: S1 and S2 regular. ABDOMEN: Soft. ASSESSMENT: 1. Hematuria. 2. Anxiety. 3. Diabetes. PLAN: Continue current medication. Monitor the patient. Macario Quick MD
[2018-09-28] MEDS: Levothyroxine 25 MCG TAB PO SCH (06:14)
[2018-09-28] MEDS: Enoxaparin 40 mg Syringe SC SCH ×2 (10:08→10:10)
[2018-09-28] MEDS ORDERED: cefTRIAXone 1 gm 0 GM/0 ML BAG IVPB ONE (15:40)
[2018-09-28] MEDS ORDERED: Lidocaine 2% Jelly (Uro-Jet) ONE (15:41)
[2018-09-28] MEDS ORDERED: Iohexol 240 (50 ml) ONE (15:41)
[2018-09-28] MEDS ORDERED: Propofol 10 mg/ml Inj (20 ML) ONE (16:00)
--- NOTE | 2018-09-28 16:34 | PCM.URO ---
Urology Progress Note - Objective Lab Studies: Reviewed (cysto /bilateral rtg/ insertion of r jj stent outpt management) Intake & Output: Intake & Output 09/27/18 09/28/18 09/28/18 18:59 06:59 18:59 Intake Total 1640 25 Balance 1640 25 Intake: IV 0 Intake, IV Amount 1280 Left Antecubital 1280 Oral 360 25 Other: # Voids Urine, Voided 2 3 # Bowel Movements 1 1 Vital Signs: Vital Signs - 24 hr 09/28/18 09/28/18 00:00 08:13 Temperature 97.5 F L 97.7 F Pulse Rate 67 73 Respiratory 20 20 Rate Blood Pressure 134/66 148/79 O2 Sat by Pulse 96 96 Oximetry
[2018-09-28] MEDS ORDERED: HYDROmorphone 0.5 mg/0.5 ml ISec IVP PRN (16:47)
--- NOTE | 2018-09-28 16:48 | RAD ---
Date of service: 09/28/2018 PROCEDURE: Intraoperative Fluoroscopy. HISTORY: HYDRONEPHROSIS/HEMATURIA FINDINGS: Fluoroscopic assistance was provided. Fluoroscopy time = 19.9 sec. Radiation dose = 0.86337 mGy-cm. Please refer to the operative report from TEMI Bray, , MD [facility].
--- NOTE | 2018-09-28 17:08 | RAD ---
Date of service: 09/28/2018 HISTORY: RIGHT HYDRONEPHROSIS/HEMATURIA COMPARISON: CT abdomen and pelvis without contrast performed 09/24/18 FINDINGS: Lateral left abdomen/abdominal wall excluded from view. BOWEL: Moderate constipation. Nonobstructive bowel gas pattern. No definite free air. BONES: Osseous demineralization. Degenerative changes. Scoliosis. OTHER FINDINGS: Limited visualization of the lung bases demonstrates probable right lower lobe consolidation and/or effusion. No coarse calcification appreciated in the expected location of the kidneys or ureteral course. Punctate pelvic calcifications, likely phleboliths. IMPRESSION: Moderate constipation. Limited visualization of the lung bases demonstrates probable right lower lobe consolidation and/or effusion.
[2018-09-28] MEDS: Lactated Ringer's 1,000 ML IV SCH ×2 (22:33→23:40)
--- NOTE | 2018-09-28 23:04 | CP.PCM.PN ---
Subjective - Subjective Subjective: dictated Objective - Vital Signs/Intake and Output Vital Signs (last 24 hours): Temp Pulse Resp BP Pulse Ox 97.7 F 65 14 160/68 H 95 09/28/18 18:00 09/28/18 18:00 09/28/18 18:00 09/28/18 18:00 09/28/18 18:00 Intake and Output: 09/28/18 09/29/18 18:59 06:59 Intake Total 425 750 Balance 425 750 - Medications Medications: Current Medications Acetaminophen (Tylenol 325mg Tab) 650 mg PO Q6 PRN PRN Reason: Pain, moderate (4-7) Enoxaparin Sodium (Lovenox) 40 mg SC DAILY [facility] Last Admin: 09/28/18 10:10 Dose: Not Given Ergocalciferol (Drisdol 50,000 Intl Units Cap) 1 cap PO QWK [facility] Last Admin: 09/25/18 10:04 Dose: 1 cap Lactated Ringer's (Lactated Ringer's) 1,000 mls @ 150 mls/hr IV .[id number] [facility] Last Admin: 09/28/18 22:33 Dose: 150 mls/hr Levothyroxine Sodium (Synthroid) 25 mcg PO DAILY@0630 [facility] Last Admin: 09/28/18 06:14 Dose: 25 mcg Losartan Potassium (Cozaar) 50 mg PO DAILY [facility] Rosuvastatin Calcium (Crestor) 5 mg PO HS [facility] Last Admin: 09/28/18 21:58 Dose: 5 mg Ursodiol (Actigall) 300 mg PO DAILY [facility] Last Admin: 09/28/18 10:11 Dose: Not Given - Labs Labs: 09/26/18 09:19 09/24/18 12:45 PT 11.3 SECONDS (9.7-12.2) 09/24/18 12:45 INR 1.0 09/24/18 12:45 APTT 36 SECONDS (21-34) H 09/24/18 12:45
[2018-09-29 01:08] VITALS: RESP 20
--- NOTE | 2018-09-29 03:12 | PN ---
DATE: 09/28/2018 SUBJECTIVE: The patient, Star, is for cystoscopy. She is afebrile. She is anxious. No nausea or vomiting. No chest pain. PHYSICAL EXAMINATION; VITAL SIGNS: BP 160/68, pulse 65, respiratory rate 14, and temperature 97.7. LUNGS: Clear. CVS: S1, S2 regular. ABDOMEN: Soft. ASSESSMENT: 1. Hematuria. Pending cystoscopy. 2. Hypertension. 3. Anxiety. PLAN: Continue current medication. Monitor the patient. Macario Quick MD
[2018-09-29] MEDS: Levothyroxine 25 MCG TAB PO SCH (05:45)
[2018-09-29] MEDS: Lactated Ringer's 1,000 ML IV SCH (07:59)
[2018-09-29] MEDS: Enoxaparin 40 mg Syringe SC SCH (11:18)
[2018-09-29 15:52] VITALS: BP 150/78; PULSE 86; TEMP 98.8; O2SAT 97
--- NOTE | 2018-09-29 17:04 | CP.PCM.PN ---
Subjective - Date & Time of Evaluation Date of Evaluation: 09/29/18 Time of Evaluation: 11:00 - Subjective Subjective: Alert, orientedx3, no dysuria, no bleeding, NAD. Objective - Vital Signs/Intake and Output Vital Signs (last 24 hours): Temp Pulse Resp BP Pulse Ox 98.8 F 86 20 150/78 97 09/29/18 15:00 09/29/18 15:00 09/29/18 15:00 09/29/18 15:00 09/29/18 15:00 Intake and Output: 09/29/18 09/29/18 06:59 18:59 Intake Total 750 1440 Balance 750 1440 - Labs Labs: 09/26/18 09:19 09/24/18 12:45 PT 11.3 SECONDS (9.7-12.2) 09/24/18 12:45 INR 1.0 09/24/18 12:45 APTT 36 SECONDS (21-34) H 09/24/18 12:45 Assessment and Plan - Assessment and Plan (Free Text) Assessment: 78 Year old female s/p cystoscopy yesterday, seen and examined. Alert and orientedx3, ambulatory, voiding well. complaints of mild suprapubic discomfort. Cleared by DR Balderas , discussed with DR Quick, plan to discharge home today. Advised to follow up with DR Balderas and PMD in 1 week.
--- NOTE | 2018-09-29 21:16 | CP.PCM.DIS ---
Provider - Provider Date of Admission: 09/24/18 15:23 Attending physician: Macario Quick MD Hospital Course - Lab Results Lab Results: Micro Results 09/25/18 Unknown Urine Urine Culture - Final No Growth (<1,000 CFU/ML) 09/24/18 12:48 Urine Urine Culture - Final <10,000 CFU/ML. MULTIPLE SPECIES. PROBABLE CONTAMINATION. Most Recent Lab Values WBC 5.4 K/uL (4.8-10.8) 09/26/18 09:19 RBC 3.64 Mil/uL (3.80-5.20) L 09/26/18 09:19 Hgb 12.1 g/dL (11.0-16.0) 09/26/18 09:19 Hct 35.3 % (34.0-47.0) 09/26/18 09:19 MCV 97.0 fL (81.0-99.0) 09/26/18 09:19 MCH 33.3 pg (27.0-31.0) H 09/26/18 09:19 MCHC 34.3 g/dL (33.0-37.0) 09/26/18 09:19 RDW 13.1 % (11.5-14.5) 09/26/18 09:19 Plt Count 195 K/uL (130-400) 09/26/18 09:19 MPV 9.0 fL (7.2-11.7) 09/26/18 09:19 Neut % (Auto) 71.7 % (50.0-75.0) 09/26/18 09: Lymph % (Auto) 18.7 % (20.0-40.0) L 09/26/18 09:19 [place] % (Auto) 6.2 % (0.0-10.0) 09/26/18 09:19 Eos % (Auto) 2.7 % (0.0-4.0) 09/26/18 09:19 Baso % (Auto) 0.7 % (0.0-2.0) 09/26/18 09:19 Neut # (Auto) 3.9 K/uL (1.8-7.0) 09/26/18 09:19 Lymph # (Auto) 1.0 K/uL (1.0-4.3) 09/26/18 09:19 [place] # (Auto) 0.3 K/uL (0.0-0.8) 09/26/18 09:19 Eos # (Auto) 0.1 K/uL (0.0-0.7) 09/26/18 09:19 Baso # (Auto) 0.0 K/uL (0.0-0.2) 09/26/18 09:19 PT 11.3 SECONDS (9.7-12.2) 09/24/18 12:45 INR 1.0 09/24/18 12:45 APTT 36 SECONDS (21-34) H 09/24/18 12:45 Sodium 140 mmol/L (132-148) 09/24/18 12:45 Potassium 4.3 mmol/L (3.6-5.2) 09/24/18 12:45 Chloride 102 mmol/L (98-107) 09/24/18 12:45 Carbon Dioxide 28 mmol/L (22-30) 09/24/18 12:45 Anion Gap 14 (10-20) 09/24/18 12:45 BUN 23 mg/dL (7-17) H 09/24/18 12:45 Creatinine 0.7 mg/dL (0.7-1.2) 09/24/18 12:45 Est GFR ( Amer) > 60 09/24/18 12:45 Est GFR (Non-Af Amer) > 60 09/24/18 12:45 Random Glucose 108 mg/dL (65-105) H 09/24/18 12:45 Calcium 10.1 mg/dl (8.6-10.4) 09/24/18 12:45 Total Bilirubin 0.5 mg/dL (0.2-1.3) 09/24/18 12:45 AST 26 U/L (14-36) 09/24/18 12:45 ALT 19 U/L (9-52) 09/24/18 12:45 Alkaline Phosphatase 168 U/L (38-126) H 09/24/18 12:45 Total Protein 8.0 g/dL (6.3-8.3) 09/24/18 12:45 Albumin 4.3 g/dL (3.5-5.0) 09/24/18 12:45 Globulin 3.7 gm/dL (2.2-3.9) 09/24/18 12:45 Albumin/Globulin Ratio 1.2 (1.0-2.1) 09/24/18 12:45 Urine Color Red (YELLOW) 09/24/18 12:48 Urine Clarity Hazy (Clear) 09/24/18 12:48 Urine pH 6.0 (5.0-8.0) 09/24/18 12:48 Ur Specific [place] 1.014 (1.003-1.030) 09/24/18 12:48 Urine Protein 2+ mg/dL (NEGATIVE) H 09/24/18 12:48 Urine Glucose (UA) Normal mg/dL (Normal) 09/24/18 12:48 Urine Ketones Negative mg/dL (NEGATIVE) 09/24/18 12:48 Urine Blood 2+ (NEGATIVE) H 09/24/18 12:48 Urine Nitrate Negative (NEGATIVE) 09/24/18 12:48 Urine Bilirubin Negative (NEGATIVE) 09/24/18 12:48 Urine Urobilinogen Normal mg/dL (0.2-1.0) 09/24/18 12:48 Ur Leukocyte Esterase Trace Alon/uL (Negative) H 09/24/18 12:48 Urine WBC (Auto) 12 /hpf (0-5) H 09/24/18 12:48 Urine RBC (Auto) 3203 /hpf (0-3) H 09/24/18 12:48 Discharge Plan - Follow Up Plan Condition: GOOD Disposition: HOME/ ROUTINE Instructions: Blood in the Urine (Hematuria), Adult (DC) Referrals: Macario Quick MD [Staff Provider] - Serina Balderas MD [Staff Provider] -
--- NOTE | 2018-09-30 05:46 | DS ---
DISCHARGE DIAGNOSES: 1. Hematuria, etiology pending and rule out nephrolithiasis. 2. Hypertension. 3. Generalized anxiety disorder. HISTORY OF PRESENT ILLNESS: This is a 78-year-old white female with a history of kidney stone, hypertension, hyperlipidemia, and anxiety. She is compliant with her diet, medication and followup. She has been doing well up until the day of admission, she developed massive hematuria. She had blood in the urine, frequent urine, burning urine. She was brought into emergency room, and she was hospitalized. She was started on antibiotics. A urology consult was done. She underwent a cystoscopy. The cystoscopy results are pending. She underwent a cystoscopy. The patient is here for discharge. The patient will follow up with me and Dr. Balderas. Condition upon discharge is stable. PHYSICAL EXAMINATION: VITAL SIGNS: Blood pressure 150/78, pulse 56, respiratory rate 20, temperature 98.9. LUNGS: Clear. CARDIOVASCULAR SYSTEM: S1 and S2 are regular. ABDOMEN: Soft. LABORATORY DATA: WBC 5.4, hemoglobin , hematocrit 35.3, platelets 195. Sodium 140, potassium 4.3, chloride 102, bicarb 28, BUN 23, creatinine 0.7. CONDITION UPON DISCHARGE: Stable. Macario Quick MD
== END 2018-09-29 15:56 | disposition home or self-care (01) | DRG 696 ==
LOC: C.ER 11:42 → C.9E 15:23 → C.3T 18:40
PROVIDERS: ADMIT Internal Medicine; ATTEND Internal Medicine
DX: R31.0 Gross hematuria (principal); N13.30 Unspecified hydronephrosis; J44.9 Chronic obstructive pulmonary disease, unspecified; I25.10 Atherosclerotic heart disease of native coronary artery without angina pectoris; I10 Essential (primary) hypertension; Z95.5 Presence of coronary angioplasty implant and graft; E11.9 Type 2 diabetes mellitus without complications; F32.9 Major depressive disorder, single episode, unspecified; E78.00 Pure hypercholesterolemia, unspecified; F41.1 Generalized anxiety disorder; E03.9 Hypothyroidism, unspecified; Z87.891 Personal history of nicotine dependence

== ENCOUNTER 2018-10-03 12:42 | Inpatient (IN) | payer MEDICARE, OTHER ==
[2018-10-03 12:47] VITALS: BMI 23.0
[2018-10-03] MEDS ORDERED: Sodium Chloride 0.9% 500 ML IV ONE ×2 (13:27→13:41)
--- NOTE | 2018-10-03 13:44 | C.PDOC ---
History Of Present Illness 78 year old female presents to ED for evaluation of suprapubic and lower back pain for the last several days but worse today. Pt was recently admitted at [facility] under Dr. Nemo Balderas's service, had cystoscopy and ureteral st ent placed . Pt states she continues to have hematuria, and worsening pain which prompted her to visit ED today. Otherwise, denies nausea, vomiting, diarrhea, chest pain, hortness of breath, fever. Time Seen by Provider: 10/03/18 13:08 Chief Complaint (Nursing): Female Genitourinary History Per: Patient History/Exam Limitations: no limitations Onset/Duration Of Symptoms: Days Current Symptoms Are (Timing): Worse Location Of Pain/Discomfort: Suprapubic Radiation Of Pain To:: Back Quality Of Discomfort: "Pain" Associated Symptoms: Urinary Symptoms. denies: Fever, Chills, Nausea, Vomiting, Diarrhea Exacerbating Factors: None Alleviating Factors: None Additional History Per: Patient Past Medical History Reviewed: Historical Data, Nursing Documentation, Vital Signs Vital Signs: Last Vital Signs Temp 99.4 F 10/03/18 12:51 Pulse 97 H 10/03/18 12:51 Resp 17 10/03/18 12:51 BP 165/86 H 10/03/18 12:51 Pulse Ox 98 10/03/18 12:51 - Medical History PMH: Anxiety, CAD, COPD, Depression, Diverticulitis, Emphysema, HTN, Hypercholesterolemia, Hypothyroidism Surgical History: Appendectomy, Cholecystectomy, Coronary Stent (X4) - [facility] Procedures EXCISION OF LARGE INTESTINE, ENDO, DIAGN (07/28/17) EXCISION OF SMALL INTESTINE, ENDO, DIAGN (07/28/17) RESECTION OF BILATERAL FALLOPIAN TUBES, OPEN APPROACH (01/09/17) RESECTION OF BILATERAL OVARIES, OPEN APPROACH (01/09/17) RESECTION OF CERVIX, OPEN APPROACH (01/09/17) RESECTION OF UTERUS, OPEN APPROACH (01/09/17) Family History: States: No Known Family Hx - Social History Hx Tobacco Use: No Hx Alcohol Use: No Hx Substance Use: No - Immunization History Hx Tetanus Toxoid Vaccination: No Hx Influenza Vaccination: No Hx Pneumococcal Vaccination: No Review Of Systems Except As Marked, All Systems Reviewed And Found Negative. Constitutional: Negative for: Fever, Chills Cardiovascular: Negative for: Chest Pain, Palpitations Respiratory: Negative for: Shortness of Breath Gastrointestinal: Positive for: Abdominal Pain. Negative for: Nausea, Vomiting, Diarrhea, Constipation Genitourinary: Positive for: Hematuria. Negative for: Dysuria, Frequency, Vaginal Discharge Musculoskeletal: Positive for: Back Pain Physical Exam - Physical Exam Appears: Well, Non-toxic, No Acute Distress Skin: Normal Color, Warm, Dry Head: Normacephalic Eye(s): bilateral: Normal Inspection Oral Mucosa: Moist Neck: Normal ROM, Supple Cardiovascular: Rhythm Regular Respiratory: Normal Breath Sounds, No Rales, No Rhonchi, No Wheezing Gastrointestinal/Abdominal: Bowel Sounds, Soft, Tenderness (suprapubic), No Guarding, No Rebound Back: Normal Inspection, No CVA Tenderness Extremity: Normal ROM Neurological/Psych: Oriented x3 ED Course And Treatment - Laboratory Results Result Diagrams: 10/05/18 14:11 10/05/18 14:11 O2 Sat by Pulse Oximetry: 98 (RA) Pulse Ox Interpretation: Normal - CT Scan/US Abd & Pelvis CT Other Rad Studies (CT/US): Read By Radiologist, Radiology Report Reviewed CT/US Interpretation: Accession No. : [id number]. Patient Name / ID : TATIANA RAMON / [id number]. Exam Date : 10/03/2018 14:43:10 ( Approved ). Study Comment : Sex / Age : F / 78Y. Creator : China Salazar. Dictator : Leroy Heath MD. Body Artist : Fax Machine Repairer : Leroy Heath MD. Approver2 : Report Date : 10/03/2018 15:08:45. My Comment : . CT abdomen and pelvis. HISTORY: Gross hematuria. Pelvic and low back pain. COMPARISON: 09/24/2018. Technique: Multiple contiguous axial images were performed through the abdomen and pelvis without the use of intravenous contrast. Subsequently, sagittal and coronal reformatted images were obtained. This CT exam was performed using one or more of the following dose reduction techniques: Automated exposure control, adjustment of the mA and/or kV according to patient size, and/or use of iterative reconstruction technique. Findings: Coronary calcifications and or stents. Prominent reticular opacities at the peripheral portion of the lung bases are again noted. This is most predominantly noted within the right middle lobe. A few adjacent nodular densities and or prominent vessels noted anterior to the right middle lobe. Scarring and atelectasis. Scattered emphysematous changes. Correlation with chest CT may be helpful if clinically indicated. Liver is preserved. Contracted and or resected gallbladder. Spleen is preserved. Nodular thickening of the right adrenal gland. Left adrenal gland is preserved. Few small pancreatic calcifications at the midbody of the pancreas, nonspecific. Clinical correlation. Upper abdominal bowel is grossly preserved. Right kidney: Right nephroureteral stent extending from the right renal pelvis to the right posterior aspect of the urinary bladder. Associated mild to moderate right renal hydroureteronephrosis. No discrete calculus identified. Exophytic 5 millimeter low-attenuation lesion off the posterior mid right kidney, too small to adequately characterize. Left Kidney: Punctate 1-2 millimeter nonobstructive calculus in the midpole of left kidney. No gross hydronephrosis. Distended urinary bladder. Prior hysterectomy. Scattered colonic diverticuli. Scattered areas of underdistention in the left hemicolon. Moderate fecal retention in the right hemicolon. Appendix not well visualized. Prominent aortic atherosclerotic calcification and plaque noted. Shotty inguinal and para-aortic lymph nodes. Small fat containing umbilical hernia. Shotty mesenteric lymph nodes. Degenerative changes in the spine and bilateral hips. Impression: 1. Right nephroureteral stent extending from the right renal pelvis to the right posterior aspect of the urinary bladder. Associated mild to moderate right renal hydroureteronephrosis. No discrete calculus identified. Exophytic 5 millimeter low-attenuation lesion off the posterior mid right kidney, too small to adequately characterize. 2. Punctate 1-2 millimeter nonobstructive calculus in the midpole of left kidney. No gross hydronephrosis. 3. Distended urinary bladder. 4. Prominent reticular opacities at the peripheral portion of the lung bases are again noted. This is most predominantly noted within the right middle lobe. A few adjacent nodular densities and or prominent vessels noted anterior to the right middle lobe. Scarring and atelectasis. Scattered emphysematous changes. Correlation with chest CT may be helpful if clinically indicated. 5. Scattered colonic diverticuli. Scattered areas of underdistention in the left hemicolon. Moderate fecal retention in the right hemicolon. Appendix not well visualized. 6. Few small pancreatic calcifications at the midbody of the pancreas, nonspecific. Clinical correlation. If hematuria persists, consider correlation with a hematuria protocol CT scan. Progress Note: Blood work, UA, Ucx, CT scan/pelvis ordered and reviewed. Pt was given IV NS bolus, IV morphine, IV rocephin. - Physician Consult Information Physician Contacted: Urbano Balderas Outcome Of Conversation: Discussed patient with her urologist, agrees with admission to medicine with him on consult for hematuria, suprapubic pain, hydronephrosis. Spoke with Dr. Quick, agrees with admission to his service. Disposition - Disposition Disposition: HOSPITALIZED Disposition Time: 17:49 Condition: STABLE - Clinical Impression Clinical Impression: Suprapubic pain, Hematuria, Hydronephrosis - Scribe Statement The provider has reviewed the documentation as recorded by the Yamilexibnemo [place] All medical record entries made by the Yamilexibnemo were at my direction and personally dictated by me. I have reviewed the chart and agree that the record accurately reflects my personal performance of the history, physical exam, medical decision making, and the department course for this patient. I have also personally directed, reviewed, and agree with the discharge instructions and disposition. Decision To Admit - Pt Status Changed To: Hospital Disposition Of: Inpatient - Admit Certification Admit to Inpatient:: After my assessment, the patient will require hospitalization for at least two midnights. This is because of the severity of symptoms shown, intensity of services needed, and/or the medical risk in this patient being treated as an outpatient. - InPatient: Physician Admission Certification:: see notes - . Bed Request Type: Regular Admitting Physician: Macario Quick Patient Diagnosis: Hematuria, Suprapubic pain, Hydronephrosis
[2018-10-03 13:48] LABS: BASO % 0.5 % (0.0-2.0); EOS # 0.1 K/uL (0.0-0.7); EOS % 1.2 % (0.0-4.0); HEMOGLOBIN 13.2 g/dL (11.0-16.0); LYMPH % 15.3 % (20.0-40.0); MEAN CELL VOLUME 97.6 fL (81.0-99.0); MEAN CORPUSCULAR HEMOGLOBIN 32.6 pg (27.0-31.0); MEAN CORPUSCULAR HGB CONC 33.5 g/dL (33.0-37.0); MEAN PLATELET VOLUME 9.5 fL (7.2-11.7); MONO # 0.4 K/uL (0.0-0.8); MONO % 6.5 % (0.0-10.0); NEUT % 76.5 % (50.0-75.0); RBC 4.04 Mil/uL (3.80-5.20); RED CELL DISTRIBUTION WIDTH 13.3 % (11.5-14.5); WHITE BLOOD COUNT 6.6 K/uL (4.8-10.8)
[2018-10-03 13:55] LABS: SQUAMOUS EPITHIAL 3 /hpf (0-5); URINE BACTERIA RARE (<OCC); URINE BILIRUBIN NEGATIVE (NEGATIVE); URINE BLOOD 3+ (NEGATIVE); URINE CLARITY Hazy (Clear); URINE COLOR Yellow (YELLOW); URINE GLUCOSE (UA) NORMAL (Normal); URINE LEUKOCYTE ESTERASE 2+ Leu/uL (Negative); URINE PROTEIN 2+ mg/dL (NEGATIVE); URINE UROBILINOGEN NORMAL mg/dL (0.2-1.0)
[2018-10-03 14:02] LABS: INR 1.1; PROTHROMBIN TIME 11.7 SECONDS (9.7-12.2)
[2018-10-03 14:22] LABS: ALB/GLOB RATIO 1.1 (1.0-2.1); ALBUMIN 4.2 g/dL (3.5-5.0); ALT/SGPT 34 U/L (9-52); AST/SGOT 28 U/L (14-36); BLOOD UREA NITROGEN 21 mg/dL (7-17); CALCIUM 9.5 mg/dl (8.6-10.4); GFR NON-AFRICAN AMERICAN > 60
--- NOTE | 2018-10-03 17:12 | CT ---
CT abdomen and pelvis HISTORY: Gross hematuria. Pelvic and low back pain. COMPARISON: 09/24/2018 Technique: Multiple contiguous axial images were performed through the abdomen and pelvis without the use of intravenous contrast. Subsequently, sagittal and coronal reformatted images were obtained. This CT exam was performed using one or more of the following dose reduction techniques: Automated exposure control, adjustment of the mA and/or kV according to patient size, and/or use of iterative reconstruction technique. Findings: Coronary calcifications and or stents. Prominent reticular opacities at the peripheral portion of the lung bases are again noted. This is most predominantly noted within the right middle lobe. A few adjacent nodular densities and or prominent vessels noted anterior to the right middle lobe. Scarring and atelectasis. Scattered emphysematous changes. Correlation with chest CT may be helpful if clinically indicated. Liver is preserved. Contracted and or resected gallbladder. Spleen is preserved Nodular thickening of the right adrenal gland. Left adrenal gland is preserved. Few small pancreatic calcifications at the midbody of the pancreas, nonspecific. Clinical correlation. Upper abdominal bowel is grossly preserved. Right kidney: Right nephroureteral stent extending from the right renal pelvis to the right posterior aspect of the urinary bladder. Associated mild to moderate right renal hydroureteronephrosis. No discrete calculus identified. Exophytic 5 millimeter low-attenuation lesion off the posterior mid right kidney, too small to adequately characterize. Left Kidney: Punctate 1-2 millimeter nonobstructive calculus in the midpole of left kidney. No gross hydronephrosis. Distended urinary bladder. Prior hysterectomy. Scattered colonic diverticuli. Scattered areas of underdistention in the left hemicolon. Moderate fecal retention in the right hemicolon. Appendix not well visualized. Prominent aortic atherosclerotic calcification and plaque noted. Shotty inguinal and para-aortic lymph nodes. Small fat containing umbilical hernia. Shotty mesenteric lymph nodes. Degenerative changes in the spine and bilateral hips. Impression: 1. Right nephroureteral stent extending from the right renal pelvis to the right posterior aspect of the urinary bladder. Associated mild to moderate right renal hydroureteronephrosis. No discrete calculus identified. Exophytic 5 millimeter low-attenuation lesion off the posterior mid right kidney, too small to adequately characterize. 2. Punctate 1-2 millimeter nonobstructive calculus in the midpole of left kidney. No gross hydronephrosis. 3. Distended urinary bladder. 4. Prominent reticular opacities at the peripheral portion of the lung bases are again noted. This is most predominantly noted within the right middle lobe. A few adjacent nodular densities and or prominent vessels noted anterior to the right middle lobe. Scarring and atelectasis. Scattered emphysematous changes. Correlation with chest CT may be helpful if clinically indicated. 5. Scattered colonic diverticuli. Scattered areas of underdistention in the left hemicolon. Moderate fecal retention in the right hemicolon. Appendix not well visualized. 6. Few small pancreatic calcifications at the midbody of the pancreas, nonspecific. Clinical correlation. If hematuria persists, consider correlation with a hematuria protocol CT scan.
[2018-10-03] MEDS ORDERED: cefTRIAXone IV 1 gm in Dextros 50 ML IV ONE (17:46)
[2018-10-04] MEDS: Levothyroxine 25 MCG TAB PO SCH (05:59)
[2018-10-04] MEDS: Losartan 12.5 MG TAB PO SCH ×2 (09:59→13:41)
[2018-10-04] MEDS ORDERED: Enoxaparin 40 mg Syringe SC SCH (10:00)
[2018-10-04] MEDS ORDERED: Propofol 10 mg/ml Inj (20 ML) ONE (15:10)
--- NOTE | 2018-10-04 16:22 | RAD ---
Date of service: 10/04/2018 HISTORY: RETENTION COMPARISON: Two views of the abdomen performed the 1st image labeled# 1 obtained at 1505 hr and the 2nd labeled #2 performed at 1518 hr respectively.. FINDINGS: BOWEL: Nonobstructive bowel gas pattern. No gross free intraperitoneal air seen on these limited supine views of the abdomen BONES: Multilevel degenerative spondylosis of the lumbar spine. OTHER FINDINGS: The 1st film demonstrates in situ right ureteral stent which has been removed on 2nd film.. No definitive abnormal calcifications seen in the distribution of the right renal silhouette however note that the exam is somewhat limited by overlying bowel related type artifact. IMPRESSION: Interval removal right ureteral stent as described.
[2018-10-04] MEDS: Lactated Ringer's 1,000 ML IV SCH (16:43)
--- NOTE | 2018-10-04 22:14 | CP.PCM.HP ---
Past Patient History - Past Medical History & Family History Past Medical History?: Yes - Past Social History Smoking Status: Former Smoker - CARDIAC Hx Hypercholesterolemia: Yes Hx Hypertension: Yes - PULMONARY Hx Chronic Obstructive Pulmonary Disease (COPD): Yes - NEUROLOGICAL Hx Neurological Disorder: No - HEENT Hx HEENT Problems: Yes Hx Cataracts: Yes (BILAT IOL) - RENAL Hx Chronic Kidney Disease: No - ENDOCRINE/METABOLIC Hx Hypothyroidism: Yes - HEMATOLOGICAL/ONCOLOGICAL Hx Blood Disorders: No - INTEGUMENTARY Hx Dermatological Problems: No - MUSCULOSKELETAL/RHEUMATOLOGICAL Hx Falls: Yes - GASTROINTESTINAL Hx Diverticulitis: Yes - GENITOURINARY/GYNECOLOGICAL Hx Genitourinary Disorders: Yes (FIBROID UTERUS) - PSYCHIATRIC Hx Anxiety: Yes Hx Depression: Yes Hx Substance Use: No - SURGICAL HISTORY Hx Appendectomy: Yes Hx Cholecystectomy: Yes Hx Coronary Stent: Yes (X4) - ANESTHESIA Hx Anesthesia: Yes Hx Anesthesia Reactions: No Hx Malignant Hyperthermia: No Meds Allergies/Adverse Reactions: Allergies Allergy/AdvReac Type Severity Reaction Status Date / Time influenza virus vaccine, Allergy Intermediate RASH Verified 10/03/18 12:44 specific cortisone Allergy RASH Verified 10/03/18 12:44 Iodinated Contrast- Oral and Allergy RASH Verified 10/03/18 12:44 IV Dye Results - Vital Signs Recent Vital Signs: Last Vital Signs Temp 97.8 F 10/04/18 16:30 Pulse 68 10/04/18 16:30 Resp 20 10/04/18 16:30 BP 136/79 10/04/18 16:30 Pulse Ox 96 10/04/18 16:30 - Labs Result Diagrams: 10/03/18 13:38 10/03/18 13:38
[2018-10-05] MEDS: Lactated Ringer's 1,000 ML IV SCH ×2 (00:43→02:46)
--- NOTE | 2018-10-05 04:23 | HP ---
CHIEF COMPLAINT: Abdominal pain. HISTORY OF PRESENT ILLNESS: This is a 78-year-old white female with history of hypertension, anxiety and hyperlipidemia who is compliant with diet, medication and followup. The patient recently underwent cystoscopy with Dr. Balderas. Pending biopsies. She is compliant with diet, medication and followup. After she went home, she started developing suprapubic lower abdominal bilateral flank pain, dysuria, hematuria, pyuria, fever, chills, and rigors. The patient denies any cough, sore throat, runny nose. She denies any history of chest pain or palpitation. She denies any history of polyuria, polydipsia, or polyphagia. She denies any history of trauma, fall, loss of consciousness. PAST MEDICAL HISTORY: Type 2 diabetes; congestive heart failure; hypertension; hyperlipidemia; CKD, on hemodialysis; diverticulitis. SOCIAL HISTORY: She smokes. She denies drinking. SURGICAL HISTORY: Cholecystectomy, appendectomy, and cardiac stent. PHYSICAL EXAMINATION: GENERAL: An elderly female who is not in any distress. She is postop. She denies any chest pain or palpitation. VITAL SIGNS: Blood pressure 165/86, pulse 97, respiratory rate 17, temperature 99.4. SKIN: No bruises. No purpura. No petechiae. No ecchymosis. HEENT: Atraumatic and normocephalic. Negative pallor. Negative jaundice. Extraocular movements are intact. NECK: Supple. No JVD. No lymph nodes. No thyromegaly. CHEST WALL: Bilateral symmetrical expansion. LUNGS: Clear. No rales. No rhonchi. CARDIOVASCULAR SYSTEM: S1 and S2 are regular. No heave. No thrill. ABDOMEN: Soft. Nontender. Bowel sounds are positive. RECTAL: No masses. No bleeding. EXTREMITIES: No clubbing, cyanosis, or edema. CENTRAL NERVOUS SYSTEM: Awake, alert, and oriented x3. ASSESSMENT: 1. Nephrolithiasis, rule out bladder malignancy. 2. Hypertension. 3. Anxiety. 4. Hyperlipidemia. PLAN: Admit. Detailed orders written. Seen and examined. Monitor postop. Macario Quick MD [facility] # [id number]
[2018-10-05] MEDS: Levothyroxine 25 MCG TAB PO SCH (06:16)
[2018-10-05] MEDS: Losartan 12.5 MG TAB PO SCH (09:54)
[2018-10-05 14:18] LABS: BASO % 0.2 % (0.0-2.0); EOS # 0.1 K/uL (0.0-0.7); EOS % 0.6 % (0.0-4.0); HEMOGLOBIN 11.8 g/dL (11.0-16.0); LYMPH # 0.5 K/uL (1.0-4.3); LYMPH % 4.4 % (20.0-40.0); MEAN CELL VOLUME 96.4 fL (81.0-99.0); MEAN CORPUSCULAR HEMOGLOBIN 32.7 pg (27.0-31.0); MEAN CORPUSCULAR HGB CONC 33.9 g/dL (33.0-37.0); MEAN PLATELET VOLUME 8.7 fL (7.2-11.7); MONO # 0.6 K/uL (0.0-0.8); MONO % 4.8 % (0.0-10.0); NEUT # 10.7 K/uL (1.8-7.0); PLATELET COUNT 223 K/uL (130-400); RBC 3.61 Mil/uL (3.80-5.20)
[2018-10-05 14:20] LABS: WHITE BLOOD COUNT 11.9 K/uL (4.8-10.8)
[2018-10-05 14:45] LABS: BLOOD UREA NITROGEN 17 mg/dL (7-17); CALCIUM 8.9 mg/dl (8.6-10.4); GFR NON-AFRICAN AMERICAN > 60
[2018-10-05 15:06] LABS: LYMPHOCYTE 4 % (20-40); MONOCYTE 1 % (0-10); NEUTROPHIL 95 % (50-75); PLATELET ESTIMATE NORMAL (NORMAL); TOTAL CELLS COUNTED 100
[2018-10-06] MEDS: Sodium Chloride 0.9% 1,000 ML IV SCH ×2 (02:01→14:10)
[2018-10-06] MEDS: Levothyroxine 25 MCG TAB PO SCH (06:03)
[2018-10-06] MEDS: Losartan 12.5 MG TAB PO SCH (09:55)
--- NOTE | 2018-10-06 15:16 | PN ---
DATE: 10/06/2018 SUBJECTIVE: The patient still complains of suprapubic pain and low back pain. She denies any shortness of breath or chest discomfort. PHYSICAL EXAMINATION: VITAL SIGNS: Blood pressure 132/73, heart rate 82, temperature 97.6, respirations 20. HEENT: Normocephalic. CHEST: Clear. HEART: S1, S2 regular. EXTREMITIES: No edema. LABORATORY DATA: Yesterday's SMA-7 is within normal limits, except for glucose of 121. Yesterday's hemoglobin and hematocrit 11.8 and 34.8. White count 11.9, platelet count 223,000. Abdomen and pelvis CT scan on admission revealed right nephroureteral stent extending from the right renal pelvis to the right posterior aspect of the urinary bladder associated mild to moderate right renal hydronephrosis. No ____ exophytic 5 mm low attenuation lesion of the posterior mid right kidney too small to characterize. ASSESSMENT: 1. Right hydroureter hydronephrosis, status post cystoscopy with removal of right ureteric stent. 2. Hypertension. 3. Hypothyroidism. RECOMMENDATIONS: Continue current Rocephin at 1 g intravenously daily, Crestor 5 mg once a day, aspirin 81 mg once a day, Synthroid 25 mcg once a day, Cozaar 12.5 mg daily. I will obtain 12-lead EKG. The most recent echo from 2014 revealed normal ejection fraction and mild MR. Manuel Kruse MD cc: Macario Quick MD
--- NOTE | 2018-10-06 16:26 | RAD ---
Date of service: 10/06/2018 PROCEDURE: Radiographs of the Lumbar Spine. HISTORY: severe back pain COMPARISON: Lumbar spine series 06/03/2014. FINDINGS: BONES: Normal alignment. No listhesis. No fracture. DISC SPACES: Mild disc height loss is appreciate L4-5 with remaining intervertebral disc heights normal. With minimal multilevel lumbar spondylosis appears stable. No destructive bony lesion grossly evident. Diffuse osteopenia suggests osteoporosis. No spondylolysis bilaterally. Multilevel facet joint degenerative arthropathy appreciated. OTHER FINDINGS: None. IMPRESSION: Mild multilevel degenerative disc disease is seen diffusely without fracture or spondylolisthesis. No spondylolysis bilaterally.
--- NOTE | 2018-10-06 16:33 | RAD ---
Date of service: 10/06/2018 PROCEDURE: Radiographs of the Sacrum and Coccyx HISTORY: sever pain in the back new onset ,s/p cysto COMPARISON: None available. TECHNIQUE: Frontal and lateral views of the sacrum and coccyx FINDINGS: BONES: Sacrum and coccyx unremarkable. No fracture or focal lesion. SACROILIAC JOINTS: Moderate degenerative changes seen the bilateral sacroiliac and hip joints symmetrically. OTHER FINDINGS: None. IMPRESSION: No displaced fracture appreciable. Diffuse osteopenia suggests osteoporosis. Bilateral sacroiliac and hip joint degenerative changes are identified moderate in severity.
[2018-10-07] MEDS: Sodium Chloride 0.9% 1,000 ML IV SCH ×3 (01:15→21:27)
[2018-10-07] MEDS: Lactated Ringer's 1,000 ML IV SCH (04:45)
[2018-10-07] MEDS: Levothyroxine 25 MCG TAB PO SCH (05:35)
[2018-10-07 08:09] VITALS: RESP 20
[2018-10-07] MEDS: Losartan 12.5 MG TAB PO SCH (09:33)
--- NOTE | 2018-10-07 15:16 | PN ---
DATE: 10/07/2018 SUBJECTIVE: The patient is experiencing low back pain. Her suprapubic pain has improved. PHYSICAL EXAMINATION: VITAL SIGNS: Blood pressure 135/81, heart rate 88, temperature 98.2, respirations 20. HEENT: Head normocephalic. CHEST: Clear. HEART: S1 and S2 regular. EXTREMITIES: No edema. X-ray of the sacrum and coccyx, no displaced fracture appreciated, diffuse osteopenia, suggest osteoporosis, bilateral sacroiliac and hip joint degenerative changes. Lumbar spine x-ray, mild multilevel degenerative disk disease is seen diffusely without fracture or spondylolisthesis. ASSESSMENT: 1. Right hydronephrosis status post removal of ureteral stent. 2. Hypertension. 3. Hypothyroidism. PLAN Continue IV Rocephin at 1 g daily, Crestor 5 mg once a day, Cozaar 12.5 mg once a day, aspirin 81 mg once a day, Synthroid 25 mcg once a day and normal saline at 80 mL an hour. Manuel Kruse MD
--- NOTE | 2018-10-07 15:29 | CARD ---
APPROVED REPORT Date of service: 10/06/2018 EKG Measurement Heart [id number] <Conclusion> Normal sinus rhythm Normal ECG
[2018-10-08] MEDS: Sodium Chloride 0.9% 1,000 ML IV SCH (05:54)
[2018-10-08] MEDS: Levothyroxine 25 MCG TAB PO SCH (05:54)
[2018-10-08 08:14] VITALS: BP 149/79; PULSE 77; TEMP 98.8
[2018-10-08] MEDS: Losartan 12.5 MG TAB PO SCH (09:05)
--- NOTE | 2018-10-08 14:09 | PCM.URO ---
Urology Progress Note - Objective Lab Studies: Reviewed (ok for discharge) Intake & Output: Intake & Output 10/07/18 10/08/18 10/08/18 18:59 06:59 18:59 Intake Total 940 1520 650 Balance 940 1520 650 Intake: Intake, IV Amount 640 1280 300 Left Forearm 640 1280 300 Oral 300 240 350 Other: # Voids Urine, Voided 4 3 3 # Bowel Movements 1 0 Vital Signs: Vital Signs - 24 hr 10/07/18 10/08/18 10/08/18 15:00 00:00 08:11 Temperature 97.9 F 98.4 F 98.8 F Pulse Rate 77 71 77 Respiratory 20 20 20 Rate Blood Pressure 167/78 H 146/73 149/79 O2 Sat by Pulse 99 97 97 Oximetry
--- NOTE | 2018-10-08 14:40 | CP.PCM.PN ---
Subjective - Date & Time of Evaluation Date of Evaluation: 10/08/18 Time of Evaluation: 14:40 - Subjective Subjective: alert, poriented, ambulatory, no acute distress. Objective - Vital Signs/Intake and Output Vital Signs (last 24 hours): Temp Pulse Resp BP Pulse Ox 98.8 F 77 20 149/79 97 10/08/18 08:11 10/08/18 08:11 10/08/18 08:11 10/08/18 08:11 10/08/18 08:11 Intake and Output: 10/08/18 10/08/18 06:59 18:59 Intake Total 1520 650 Balance 1520 650 - Medications Medications: Current Medications Aspirin (Ecotrin) 81 mg PO DAILY [facility] Last Admin: 10/08/18 09:05 Dose: 81 mg Ergocalciferol (Drisdol 50,000 Intl Units Cap) 1 cap PO QWK [facility] Ceftriaxone Sodium 1 gm/ (Sodium Chloride) 100 mls @ 100 mls/hr IVPB Q24H [facility]; Protocol Last Admin: 10/08/18 11:58 Dose: Not Given Levothyroxine Sodium (Synthroid) 25 mcg PO DAILY@0630 [facility] Last Admin: 10/08/18 05:54 Dose: 25 mcg Losartan Potassium (Cozaar) 12.5 mg PO DAILY [facility] Last Admin: 10/08/18 09:05 Dose: 12.5 mg Rosuvastatin Calcium (Crestor) 5 mg PO DAILY [facility] Last Admin: 10/08/18 09:05 Dose: 5 mg Ursodiol (Actigall) 300 mg PO DAILY [facility] Last Admin: 10/08/18 09:05 Dose: 300 mg - Labs Labs: 10/05/18 14:11 10/05/18 14:11 PT 11.7 SECONDS (9.7-12.2) 10/03/18 13:38 INR 1.1 10/03/18 13:38 APTT 33 SECONDS (21-34) 10/03/18 13:38 Assessment and Plan - Assessment and Plan (Free Text) Assessment: 80 year old female admitted with hematuria, UTI, treated with antibiotics, seen and examined. Denies any acute pain, voiding well. Discussed with DR Balderas and DR Kruse, plan to discharge home today. Advised to follow up with PMD in 1 week.
--- NOTE | 2018-10-08 17:45 | PN ---
DATE: 10/08/2018 SUBJECTIVE: The patient's suprapubic pain has improved and has minimal low back pain. She ambulated today without difficulty. No chest pain or shortness of breath. PHYSICAL EXAMINATION: VITAL SIGNS: Blood pressure 149/79, heart rate 77, temperature 98.8, respirations 20. HEENT: Normocephalic. CHEST: Clear. HEART: S1 and S2 regular. ABDOMEN: Soft. EXTREMITIES: No edema. ASSESSMENT: 1. Right hydronephrosis, status post removal of ureteral stent. 2. Hypertension. 3. Hypothyroidism. PLAN: The patient will be discharged today on Cozaar 12.5 mg once a day, Crestor 5 mg once a day, aspirin 81 mg once a day, Synthroid 25 mcg once a day. To follow up with Dr. Macario Quick as an outpatient. Manuel Kruse MD
[2018-10-10] MEDS ORDERED: Ergocalciferol 50,000 Intl Units Cap PO SCH (10:00)
--- NOTE | 2018-10-12 02:14 | CP.PCM.PN ---
Subjective - Date & Time of Evaluation Date of Evaluation: 10/05/18 - Subjective Subjective: dictated Objective - Vital Signs/Intake and Output Vital Signs (last 24 hours): Temp Pulse Resp BP Pulse Ox 98.8 F 77 20 149/79 97 10/08/18 08:11 10/08/18 08:11 10/08/18 08:11 10/08/18 08:11 10/08/18 08:11 - Labs Labs: 10/05/18 14:11 10/05/18 14:11 PT 11.7 SECONDS (9.7-12.2) 10/03/18 13:38 INR 1.1 10/03/18 13:38 APTT 33 SECONDS (21-34) 10/03/18 13:38
--- NOTE | 2018-10-12 06:51 | PN ---
DATE: 10/11/2018 SUBJECTIVE: Star is status post removal of the stent for nephrolithiasis. Her hematinuria is improving. She is afebrile. No shortness of breath. No chest pain. No nausea, vomiting. No cough. PHYSICAL EXAMINATION: VITAL SIGNS: Blood Pressure 145/73, pulse 78, respiratory rate 20, temperature 99. LUNGS: Clear CARDIOVASCULAR SYSTEM: S1, S2 regular. ABDOMEN: Soft. ASSESSMENT: 1. Nephrolithiasis, hematuria, status post stent placement and then now removal, the patient is feeling better. 2. Anxiety. 3. Hypertension. 4. Hyperlipidemia. PLAN: Continue current medications. Monitor the patient. Macario Quick MD
[2018-10-14 16:03] VITALS: O2SAT 98
--- NOTE | 2018-10-22 11:45 | OP ---
PROCEDURE DATE: 10/04/2018 UROLOGY OPERATIVE NOTE PREOPERATIVE DIAGNOSES: Hydronephrosis, hematuria, flank pain, now relatively resolved. POSTOPERATIVE DIAGNOSES: Hydronephrosis, hematuria, flank pain, now relatively resolved. PROCEDURES: Cystoscopy, removal of a right double-J stent. COMPLICATIONS: There were no complications. ESTIMATED BLOOD LOSS: About 10 mL. Please see previous operative note from 09/28/2018, today's date is 10/04/2018. INDICATIONS: See history and physical for further details. This is a very pleasant lady who states she can no longer withstand flank pain, hematuria and . Today the patient is here to remove the stent. We discussed options with the patient. We discussed uteroscopy. We discussed multiple options with risks, benefits, and treatment. DESCRIPTION OF PROCEDURE: After obtaining informed consent, the patient was placed on the table. Routine monitor placed. Time-outs were called to confirm the patient and positioning. We introduced the cystoscope via urethra. The ureteral orifice identified. The old stent was removed without difficulty. The bladder was emptied and cystoscope removed. The patient tolerated the procedure without complications. Devan Balderas MD
== END 2018-10-08 14:47 | disposition home or self-care (01) | DRG 694 ==
LOC: C.ER 12:42 → C.9E 17:49 → C.3T 18:32
PROVIDERS: ADMIT Internal Medicine; ATTEND Internal Medicine
PROC: 0TP98DZ Removal of Intraluminal Device from Ureter, Via Natural or Artificial Opening Endoscopic (ICD-10-PCS; principal; 2018-10-04 15:30)
DX: N13.30 Unspecified hydronephrosis (principal); R31.0 Gross hematuria; I50.9 Heart failure, unspecified; F41.9 Anxiety disorder, unspecified; E78.00 Pure hypercholesterolemia, unspecified; J44.9 Chronic obstructive pulmonary disease, unspecified; E03.9 Hypothyroidism, unspecified; E78.5 Hyperlipidemia, unspecified; I11.0 Hypertensive heart disease with heart failure; I25.10 Atherosclerotic heart disease of native coronary artery without angina pectoris; F17.200 Nicotine dependence, unspecified, uncomplicated; Z79.899 Other long term (current) drug therapy; Z95.5 Presence of coronary angioplasty implant and graft; E11.9 Type 2 diabetes mellitus without complications